=== PATIENT | female | born 1950 | race Caucasian/White ===

== ENCOUNTER 2017-04-29 12:41 | Emergency (ER) | payer MEDICARE, OTHER ==
[~2017-04-29] VITALS: Ht 162.6 cm; Wt 68.0 kg
[~2017-04-29 12:41] MED LIST: HYDR-3720 PO; HYOS0.1216 PO; MELO7.5T PO; OMEP40CA36 PO; ONDA8TAB9 PO
[2017-04-29] MEDS ORDERED: TETANUS,DIPTH,PERTUSS P/F (BOOSTRIX) 0.5 ML VIAL IM STA (13:40)
[2017-04-29] MEDS ORDERED: ACETAMINOPHEN 500 MG TAB (TYLENOL) PO STA (13:40)
--- NOTE | 2017-04-29 13:58 | ED Fall/Injury ---
General Chief Complaint: Trauma-Non Activation Stated Complaint: FALL/L ARM INJ Nursing Triage Note: AMBULATED TO ROOM 07 WITH COMPLAINTS OF LEFT WRIST AND HIP PAIN AFTER FALLING IN [employer]. Source: patient Exam Limitations: no limitations History of Present Illness Time seen by provider: 13:34 Initial Comments 67 yo female patient presents to the ED with c/o left wrist pain and hip pain after falling in her 's shop. Patient is not sure if she hit her head. Reports an abrasion to the left knee. Denies headache, n/v, or dizziness. Did have one episode of dizziness immediately after falling. Location Injury Occurred: at home in her 's shop Occurred: this morning Injuries/Pain Location: head, upper extremity, lower extremity Context: tripped Loss of Consciousness: no loss of consciousness Modifying Factors: Improves With Immobilization, Worse With Movement Allergies and Home Medications Allergies Coded Allergies: levofloxacin (Verified Adverse Reaction, mental status change, 10/17/13) niacin (Verified Adverse Reaction, flushing, 10/17/13) Home Medications Hydrocodone/Acetaminophen 1 Each Tablet, 1 EACH PO Q4H PRN for PAIN, #30 Ref 0 Prescribed by: JACE BYRD on 04/29/17 8434 Constitutional: see HPI, No dizziness ((did have 1 episode of dizziness immediately after falling).) Eyes: No Symptoms Reported Ears, Nose, Mouth, Throat: no symptoms reported Respiratory: No cough, No short of breath Cardiovascular: No chest pain, No syncope Gastrointestinal: no symptoms reported Genitourinary: no symptoms reported Musculoskeletal: No back pain, joint pain (left hip, left knee, and left wrist. ), No neck pain Skin: see HPI Psychiatric/Neurological: Denies Headache, Denies Numbness, Denies Paresthesia , Denies Seizure, Denies Tingling, Denies Weakness All Other Systems Reviewed Negative Unless Noted: Yes (Negative excepted noted.) Past Htdjtjo-Ckxqci-Ksqicd Hx Patient Social History Alcohol Use: Denies Use Recreational Drug Use: No Smoking Status: Never a Smoker Recent Foreign Travel: No Contact w/Someone Who Travel: No Recent Infectious Disease Expo: No Recent Hopitalizations: No Immunizations Up To Date Tetanus Booster (TDap): More than 5yrs Date of Pneumonia Vaccine: Sep 19, 2010 Date of Influenza Vaccine: Sep 18, 2013 Surgeries HX Surgeries: Yes (EAR DRUM REPLACEMENT, R AND L ROTATOR CUFF, HYST, ANMOL, RIGHT ANKLE) Respiratory Hx Respiratory Disorders: No Cardiovascular Hx Cardiac Disorders: Yes Cardiac Disorders: Hypertension Neurological Hx Neurological Disorders: No Reproductive System Hx Reproductive Disorders: No HIV/AIDS: No Genitourinary Genitourinary Disorders: UTI-Chronic Gastrointestinal Hx Gastrointestinal Disorders: Yes Gastrointestinal Disorders: Gastrointestinal Bleed, Ulcer Musculoskeletal Hx Musculoskeletal Disorders: Yes Musculoskeletal Disorders: Arthritis, Chronic Back Pain, Gout Endocrine Hx Endocrine Disorders: Yes ("BORDERLINE DIABETIC") Endocrine Disorders: Diabetes, Non-Insulin dep HEENT HX ENT Disorders: No Loss of Vision: Bilateral Cancer Hx Cancer: No Psychosocial Hx Psychiatric Problems: Yes Behavioral Health Disorders: Anxiety, Depression Integumentary HX Skin/Integumentary Disorder: No Blood Transfusions Hx Blood Disorders: No Adverse Reaction to a Blood Tr: No Reviewed Nursing Assessment Reviewed/Agree w Nursing PMH: Yes Family Medical History Significant Family History: No Pertinent Family Hx Physical Exam Vital Signs Vital Sign - Last 12Hours 04/29/17 13:10 Temp 98.0 Pulse 81 Resp 16 B/P (MAP) 195/91 Pulse Ox 97 O2 Delivery Room Air Capillary Refill : Less Than 3 Seconds General Appearance: WD/WN, no apparent distress HEENT: PERRL/EOMI, pharynx normal, other (normocephalic, atraumatic.) Neck: non-tender, full range of motion, supple, normal inspection Cardiovascular: normal peripheral pulses, regular rate, rhythm, no murmur Respiratory: lungs clear, normal breath sounds, no respiratory distress Back: normal inspection, no vertebral tenderness Extremities: no pedal edema, normal capillary refill, pelvis stable, other ( mild ecchymosis and abrasion of the left anterior knee. abrasion of the anterior lower black. left lateral elbow ttp with ecchymosis and swelling. mild swelling of the medial left wrist. no evidence of deformity noted. 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 abrasion of the anterior lower black. left lateral elbow ttp with ecchymosis and swelling. mild swelling of the medial left wrist. no evidence of deformity noted. ) Cortez Coma Score Best Eye Response: (4) Open Spontaneously Best Verbal Response: (5) Oriented Best Motor Response: (6) Obeys Commands Gilles Total: 15 Splinting and Joint Reduction : Location: left elbow Pre-Proc Neuro Vasc Exam: normal Post-Proc Neuro Vasc Exam: normal Lavell wrap: Yes (lavell wrap used to secure the orthoglass) Arm Sling: Large Hand-Made Type: orthoglass Splint Application: Long Arm (posterior long arm), Short Arm (stirrup) Progress/Results/Core Measures Results/Orders My Orders Orders - JACE BYRD Forearm, Left, 2 Views (04/29/17 13:40) Hand, Left, 3 Views (04/29/17 13:40) Pelvis (04/29/17 13:40) Ct Head Wo (04/29/17 13:40) Dipht,Pertuss(Acell),Tet Adult (Boostrix (04/29/17 13:40) Acetaminophen Tablet (Tylenol Tablet) (04/29/17 13:40) Elbow, Left, 3 Views (04/29/17 14:14) Vital Signs/I&O Vital Sign - Last 12Hours 04/29/17 04/29/17 13:10 15:49 Temp 98.0 98.0 Pulse 81 81 Resp 16 16 B/P (MAP) 195/91 Pulse Ox 97 97 O2 Delivery Room Air Blood Pressure Mean: 125 Diagnostic Imaging Diagonstic Imaging: CT Plain Films/CT/US/NM/MRI: head Comments Discussion: No intracranial hemorrhage, mass, midline shift, or hydrocephalus. The ventricles and sulci are normal size and configuration for age. The visualized orbits, paranasal sinuses, mastoid air cells, and calvarium are unremarkable. Impression: 1. Negative head CT. Dictated by: Dictated on workstation # [id number] Reviewed: Reviewed by Me (radiology report reviewed by me.) Diagonstic Imaging: Xray Plain Films/CT/US/NM/MRI: pelvis Comments Discussion: Single AP view of the pelvis was obtained, no comparison. No acute fracture or dislocation. Suspect old hamstring injuries, incidental. Mild degenerative changes are noted within the bilateral hips. Moderate degenerative changes are present within the visualized lumbar spine. Soft tissues are unremarkable. Impression: 1. Negative pelvis. Dictated by: Dictated on workstation # [id number] Reviewed: Reviewed by Me (radiology report reviewed by me.) Diagonstic Imaging: Xray Plain Films/CT/US/NM/MRI: other (forearm) Comments There is a slightly impacted fracture of the radial neck. There is only slight elevation of the posterior fat-pad of the elbow joint on the lateral view. No other fracture or acute bony abnormality is identified. However if further evaluation of the extent of the injury to the radial neck is desired, then a three-view elbow series would be recommended. The soft tissues are unremarkable. There is moderate degenerative disease of the radiocarpal joint. The elbow joint is fairly well-maintained. IMPRESSION: There is a slightly impacted fracture of the radial neck. There is no acute bony abnormality identified otherwise. Additional considerations as above. Dictated by: Dictated on workstation # [id number] Reviewed: Reviewed by Me (radiology report reviewed by me. ) Diagonstic Imaging: Xray Plain Films/CT/US/NM/MRI: hand Comments Discussion: Three views of the left hand were obtained, no comparison. Age related mild polyarticular degenerative disease is noted. No acute fracture or dislocation. Alignment is anatomic. Soft tissues are unremarkable. No radiopaque foreign body. Impression: 1. No acute osseous abnormality identified within the left hand. Dictated by: Dictated on workstation # [id number] Reviewed: Reviewed by Me (radiology report reviewed by me. ) Diagonstic Imaging: Xray Plain Films/CT/US/NM/MRI: elbow Comments FINDINGS: There is a fracture of the proximal radial neck. This is slightly impacted. The proximal ulna and distal humerus are intact. There is a joint effusion. IMPRESSION: Slightly impacted fracture of the neck of the proximal radius. Dictated by: Dictated on workstation # [id number] Reviewed: Reviewed by Me (radiology report reviewed by me. ) Departure Communication Progress Notes diagnostic findings discussed with the patient. splint and arm sling applied. plan for dsch to home. Impression Impression: Primary Impression: Fracture of radial neck, closed Qualified Codes: S52.135A - Nondisplaced fracture of neck of left radius, initial encounter for closed fracture Additional Impressions: Minor head injury without loss of consciousness Qualified Codes: S09.90XA - Unspecified injury of head, initial encounter Abrasion of lower extremity Qualified Codes: S80.812A - Abrasion, left lower leg, initial encounter Disposition: 01 HOME, SELF-CARE Condition: Improved Departure-Patient Inst. Decision time for Depature: 14:55 Referrals: JANEY OLIVAREZ MD (PCP) Primary Care Physician JOE OLMEDO MD Patient Instructions: Elbow Fracture (DC), Minor Head Injury (DC) Add. Discharge Instructions: All discharge instructions reviewed with patient and/or family. Voiced understanding. Medications as instructed. No ibuprofen or Aleve. No aspirin. Elevate the left arm on pillows. Ice pack for 20 minute intervals as needed for pain. Arm sling as instructed. Right arm activities only until released by Dr. Olmedo. Keep the splint clean and dry. Follow-up with Dr. Olmedo in the next 7 days as an outpatient for recheck, call first thing tomorrow morning for appointment time. Return to the emergency department for worsened pain, numbness, weakness, pain from the splint, discoloration, or any other concerns. Scripts Hydrocodone/Acetaminophen (Hydrocodon -Acetaminophen 5-325) 1 Each Tablet 1 EACH PO Q4H Y for PAIN, #30 TAB 0 Refills Prov: JACE BYRD 04/29/17 JACE BYRD Apr 29, 2017 13:58
--- NOTE | 2017-04-29 14:01 | Diagnostic Imaging Report ---
PROCEDURE: CT head without contrast. TECHNIQUE: Multiple contiguous axial images were obtained through the brain without the use of intravenous contrast. Indication: Head pain after fall. Comparison: None. Discussion: No intracranial hemorrhage, mass, midline shift, or hydrocephalus. The ventricles and sulci are normal size and configuration for age. The visualized orbits, paranasal sinuses, mastoid air cells, and calvarium are unremarkable. Impression: 1. Negative head CT. Dictated by: Dictated on workstation # [id number]
--- NOTE | 2017-04-29 14:01 | Diagnostic Imaging Report ---
Indication: Fall with left hip pain. Discussion: Single AP view of the pelvis was obtained, no comparison. No acute fracture or dislocation. Suspect old hamstring injuries, incidental. Mild degenerative changes are noted within the bilateral hips. Moderate degenerative changes are present within the visualized lumbar spine. Soft tissues are unremarkable. Impression: 1. Negative pelvis. Dictated by: Dictated on workstation # [id number]
--- NOTE | 2017-04-29 14:05 | Diagnostic Imaging Report ---
Indication: Left hand pain after fall. Discussion: Three views of the left hand were obtained, no comparison. Age related mild polyarticular degenerative disease is noted. No acute fracture or dislocation. Alignment is anatomic. Soft tissues are unremarkable. No radiopaque foreign body. Impression: 1. No acute osseous abnormality identified within the left hand. Dictated by: Dictated on workstation # [id number]
--- NOTE | 2017-04-29 14:12 | Diagnostic Imaging Report ---
Left forearm INDICATION: Fell arm pain AP and lateral views were obtained. There is a slightly impacted fracture of the radial neck. There is only slight elevation of the posterior fat-pad of the elbow joint on the lateral view. No other fracture or acute bony abnormality is identified. However if further evaluation of the extent of the injury to the radial neck is desired, then a three-view elbow series would be recommended. The soft tissues are unremarkable. There is moderate degenerative disease of the radiocarpal joint. The elbow joint is fairly well-maintained. IMPRESSION: There is a slightly impacted fracture of the radial neck. There is no acute bony abnormality identified otherwise. Additional considerations as above. Dictated by: Dictated on workstation # [id number]
[2017-04-29] MEDS ORDERED: HYDR-3812 PO (14:57)
--- NOTE | 2017-04-29 15:21 | Diagnostic Imaging Report ---
INDICATION: Fall. 3 views were obtained. FINDINGS: There is a fracture of the proximal radial neck. This is slightly impacted. The proximal ulna and distal humerus are intact. There is a joint effusion. IMPRESSION: Slightly impacted fracture of the neck of the proximal radius. Dictated by: Dictated on workstation # [id number]
[2017-04-29 15:49] VITALS: BP 195/91
== END 2017-04-29 15:49 | disposition home or self-care (01) ==
LOC: EDUNIT# 12:41 → ER 12:43
DX: S52.132A Displaced fracture of neck of left radius, initial encounter for closed fracture (principal); S09.90XA Unspecified injury of head, initial encounter; S80.812A Abrasion, left lower leg, initial encounter; E11.9 Type 2 diabetes mellitus without complications; I10 Essential (primary) hypertension; W18.30XA Fall on same level, unspecified, initial encounter; Y92.89 Other specified places as the place of occurrence of the external cause
CPT/HCPCS: 29105; 70450; 72170; 73080; 73090; 73130; 90715

== ENCOUNTER → 2019-08-29 | Outpatient (CLI) | payer MEDICARE, OTHER ==
[~2019-08-29] MED LIST changes: +ACHD5005 PO
--- NOTE | 2019-08-29 11:47 | Diagnostic Imaging Report ---
INDICATION: Follow-up kidney stones. TIME OF EXAM: 11:28 a.m. COMPARISON: No prior studies are available for comparison. FINDINGS: There are calcific densities overlying both renal shadows suggestive of renal calculi. No definite radiopaque calculi are seen within the distribution of the ureters. Bowel gas pattern is unremarkable. There are surgical clips in the gallbladder fossa. Multilevel lumbar degenerative disc disease is seen. IMPRESSION: Findings suggestive of bilateral renal calculi. No definite ureteral calculi are identified. Dictated by: Dictated on workstation # [id number]
== END ==
LOC: RAD FS 11:24
PROVIDERS: ATTEND Urology
DX: N20.0 Calculus of kidney (principal)
CPT/HCPCS: 74018

== ENCOUNTER 2020-08-28 16:55 | Emergency (ER) | payer MEDICARE, OTHER ==
[~2020-08-28] VITALS: Ht 162.5 cm; Wt 72.2 kg
[2020-08-28] MEDS ORDERED: LOSA100T57 PO (17:19)
[2020-08-28] MEDS ORDERED: FEXO-46 PO (17:19)
[2020-08-28] MEDS ORDERED: OMEP40CA27 PO (17:19)
[2020-08-28] MEDS ORDERED: HYDR12.56 PO (17:19)
[2020-08-28] MEDS ORDERED: INSU100I10 SC (17:19)
--- NOTE | 2020-08-28 17:38 | ED General ---
General Chief Complaint: Cardiac/General Problems Stated Complaint: SOB, HIGH BP Nursing Triage Note: Patient presents to ED reporting a 1-2 hr palpitation sennsation and took home BP and found it elevated still. Pt had notified her storm window installer mid-week of elevations and HCTZ ordered. Pt recently on Z-rafi ending . Recent COVID test negative. Nursing Sepsis Screen: No Definite Risk (RENAY NJ DO) History of Present Illness Date Seen by Provider: Aug 28, 2020 Time Seen by Provider: 17:33 Initial Comments Patient presenting to emergency department for evaluation of primary complaints of hypertension and palpitations. She said she has had some shortness of breath recently as well but she says most a she has episodes of her heart beating quickly for 5 minutes at a time and this occurred at approximately noon today and then it stopped on its own. It sounds as if she checks her blood pressure at home rather frequently as her storm window installer at [facility] [address] told her to check it and her blood pressure was 225/100 and she decided to come to the emergency department. She denies having any chest pain tightness or pressure to me rather she says she just feels the palpitations sensation at times and can feel short of breath at times as well. She says hydrochlorothiazide was recently added to her medication regiment at 12.5 mg and she also takes low certain but she does not know the dose of this. She has a history of hypertension diabetes and high cholesterol but does not smoke cigarettes. She has had no heart catheterization but she has had a stress test approximately 3-4 years ago. She said she is here and she is most concerned that she is going to have a heart attack. She is in no obvious distress with normal vital signs except for mild systolic hypertension at 195/71. (RENAY NJ DO) Allergies and Home Medications Allergies Coded Allergies: levofloxacin (Verified Adverse Reaction, mental status change, 10/17/13) niacin (Verified Adverse Reaction, flushing, 10/17/13) Home Medications Fexofenadine HCl 180 Mg Tablet, 180 MG PO DAILY, (Reported) Hydrochlorothiazide 12.5 Mg Tablet, 12.5 MG PO DAILY, (Reported) Insulin Glargine,Hum.rec.anlog 100 Unit/1 Ml Insuln.pen, 25 UNIT SC HS, (Reported) Losartan Potassium 100 Mg Tablet, 100 MG PO DAILY, (Reported) Omeprazole 40 Mg Capsule.dr, 40 MG PO DAILY, (Reported) Patient Home Medication List Home Medication List Reviewed: Yes (RENAY NJ DO) Review of Systems Review of Systems Constitutional: no symptoms reported EENTM: no symptoms reported Respiratory: short of breath Cardiovascular: palpitations Gastrointestinal: no symptoms reported Genitourinary: no symptoms reported Musculoskeletal: no symptoms reported Skin: no symptoms reported Psychiatric/Neurological: No Symptoms Reported (RENAY NJ DO) All Other Systems Reviewed Negative Unless Noted: Yes (RENAY NJ DO) Past Gfoxsft-Ryvyxl-Unqiue Hx Patient Social History Alcohol Use: Denies Use Recreational Drug Use: No Smoking Status: Never a Smoker Recent Foreign Travel: No Contact w/Someone Who Travel: No Recent Infectious Disease Expo: No Recent Hopitalizations: No Physical Abuse: No Sexual Abuse: No Mistreated: No Fear: No (RENAY NJ DO) Immunizations Up To Date Tetanus Booster (TDap): More than 5yrs Date of Pneumonia Vaccine: Sep 19, 2017 Date of Influenza Vaccine: Aug 19, 2019 (RENAY NJ DO) Seasonal Allergies Seasonal Allergies: No (RENAY NJ DO) Past Medical History Surgeries: Yes (EAR DRUM REPLACEMENT, R AND L ROTATOR CUFF, RIGHT ANKLE) Ear Surgery, Gallbladder, Orthopedic Respiratory: No Cardiac: Yes High Cholesterol, Hypertension Neurological: No Reproductive Disorders: No HIV/AIDS: No Genitourinary: No UTI-Chronic Gastrointestinal: Yes Gastrointestinal Bleed, Ulcer Musculoskeletal: Yes Arthritis, Chronic Back Pain, Gout Endocrine: Yes Diabetes, Non-Insulin dep HEENT: No Loss of Vision: Bilateral Cancer: No Did You Recieve Any Treatments: No Psychosocial: Yes Anxiety, Depression Integumentary: No Blood Disorders: No Adverse Reaction/Blood Tranf: No (RENAY NJ DO) Family Medical History No Pertinent Family Hx (RENAY NJ DO) Physical Exam Vital Signs Vital Signs - First Documented 08/28/20 17:00 Temp 37.0 Pulse 94 Resp 18 B/P (MAP) 214/65 (114) Pulse Ox 96 O2 Delivery Room Air (MONO SALINAS MD) Vital Signs Capillary Refill : Less Than 3 Seconds (RENAY NJ DO) Height, Weight, BMI Height: 5'4.00" Weight: 150lbs. oz. 68.735871py; 27.00 BMI Method:Stated General Appearance: No Apparent Distress, WD/WN HEENT: PERRL/EOMI Neck: Supple Respiratory: Lungs Clear, No Respiratory Distress Cardiovascular: Regular Rate, Rhythm Gastrointestinal: Non Tender, Soft Back: Normal Inspection Extremity: Normal Capillary Refill Neurologic/Psychiatric: Alert, Oriented x3 Skin: Warm/Dry ([facility]Y [facility]) Progress/Results/Core Measures Suspected Sepsis Recent Fever Within 48 Hours: No Infection Criteria Present: None New/Unexplained Altered Menta: No Sepsis Screen: No Definite Risk SIRS Temperature: Pulse: 94 Respiratory Rate: 18 Blood Pressure 214 /65 Mean: 114 ([facility]) Results/Orders Lab Results Laboratory Tests Test 08/28/20 17:51 08/28/20 17:59 Range/Units White Blood Count 12.4 H 4.3-11.0 10^3/uL Red Blood Count 4.35 4.35-5.85 10^6/uL Hemoglobin 13.6 11.5-16.0 G/DL Hematocrit 40 35-52 % Mean Corpuscular Volume 92 80-99 FL Mean Corpuscular Hemoglobin 31 25-34 PG Mean Corpuscular Hemoglobin Concent 34 32-36 G/DL Red Cell Distribution Width 13.1 10.0-14.5 % Platelet Count 340 130-400 10^3/uL Mean Platelet Volume 10.1 7.4-10.4 FL Immature Granulocyte % (Auto) 1 % Neutrophils (%) (Auto) 70 42-75 % Lymphocytes (%) (Auto) 21 12-44 % Monocytes (%) (Auto) 6 0-12 % Eosinophils (%) (Auto) 1 0-10 % Basophils (%) (Auto) 1 0-10 % Neutrophils # (Auto) 8.7 H 1.8-7.8 X 10^3 Lymphocytes # (Auto) 2.6 1.0-4.0 X 10^3 Monocytes # (Auto) 0.8 0.0-1.0 X 10^3 Eosinophils # (Auto) 0.1 0.0-0.3 10^3/uL Basophils # (Auto) 0.1 0.0-0.1 10^3/uL Immature Granulocyte # (Auto) 0.1 0.0-0.1 10^3/uL Prothrombin Time 12.8 12.2-14.7 SEC INR Comment 0.9 0.8-1.4 Activated Partial Thromboplast Time 24 24-35 SEC Sodium Level 138 135-145 MMOL/L Potassium Level 4.8 3.6-5.0 MMOL/L Chloride Level 101 98-107 MMOL/L Carbon Dioxide Level 23 21-32 MMOL/L Anion Gap 14 5-14 MMOL/L Blood Urea Nitrogen 34 H 7-18 MG/DL Creatinine 1.50 H 0.60-1.30 MG/DL Estimat Glomerular Filtration Rate 34 BUN/Creatinine Ratio 23 Glucose Level 305 H 70-105 MG/DL Calcium Level 9.0 8.5-10.1 MG/DL Corrected Calcium 8.9 8.5-10.1 MG/DL Magnesium Level 1.7 1.6-2.4 MG/DL Total Bilirubin 0.2 0.1-1.0 MG/DL Aspartate Amino Transf (AST/SGOT) 13 5-34 U/L Alanine Aminotransferase (ALT/SGPT) 16 0-55 U/L Alkaline Phosphatase 128 40-136 U/L Troponin I < 0.30 <0.30 NG/ML Pro-B-Type Natriuretic Peptide 220.5 H <75.0 PG/ML Total Protein 7.4 6.4-8.2 GM/DL Albumin 4.1 3.2-4.5 GM/DL Urine Color YELLOW Urine Clarity CLEAR Urine pH 6.0 5-9 Urine Specific [place] 1.020 1.016-1.022 Urine Protein 1+ H NEGATIVE Urine Glucose (UA) 3+ H NEGATIVE Urine Ketones NEGATIVE NEGATIVE Urine Nitrite NEGATIVE NEGATIVE Urine Bilirubin NEGATIVE NEGATIVE Urine Urobilinogen 0.2 < = 1.0 MG/DL Urine Leukocyte Esterase NEGATIVE NEGATIVE Urine RBC (Auto) TRACE H NEGATIVE Urine RBC 5-10 H /HPF Urine WBC 2-5 /HPF Urine Squamous Epithelial Cells 5-10 /HPF Urine Crystals NONE /LPF Urine Bacteria NEGATIVE /HPF Urine Casts NONE /LPF Urine Mucus NEGATIVE /LPF Urine Culture Indicated NO (MONO SALINAS MD) My Orders Orders - MONO SALINAS MD Clonidine Tablet (Catapres Tablet) (08/28/20 18:15) (MONO SALINAS MD) Medications Given in ED Current Medications Medications Dose Ordered Sig/Cheryl Route Start Time Stop Time Status Last Admin Dose Admin Clonidine HCl 0.1 mg ONCE ONCE PO 08/28/20 18:15 08/28/20 18:16 DC 08/28/20 18:11 0.1 MG (MONO SALINAS MD) Vital Signs/I&O 08/28/20 17:00 Temp 37.0 Pulse 94 Resp 18 B/P (MAP) 214/65 (114) Pulse Ox 96 O2 Delivery Room Air (MONO SALINAS MD) Vital Signs/I&O Capillary Refill : Less Than 3 Seconds (RENAY NJ DO) Blood Pressure Mean: 114 Progress Note : Progress Note A have a very low suspicion for heart attack as her EKG appears normal with no signs of ischemia. I will check labs continue to monitor and then reassess. Patient was extremely difficult IV access and that the nurses were able to get access on her she had very small caliber veins and I was able to get an ultr asound-guided ATV on my third attempt on the right inner arm. Given workup is still pending I will transfer care to Dr. Salinas at 1800 (RENAY NJ DO) Progress Note : Time: 18:46 Progress Note 1845: I assumed care from Dr. Nj at shift change at 1800. I agree with his history of present illness and examination as documented above. In brief, 70-year-old female with a history of hypertension, hyperlipidemia and insulin dependent diabetes who presents for evaluation of elevated blood pressures measured at home today as well as some transient palpitations earlier. A symptomatic here in the emergency department and feels well. Has not had any chest pain. Vital signs notable only for hypertension. Alert and oriented and in no acute distress. Labs, EKG and chest x-ray are without evidence of acute process; patient does have mildly elevated blood glucose but states she had a significant meal right before coming and she does have insulin at home to manage this. BUN/creatinine also slightly elevated but patient states this is chronic for her. Patient is counseled that there is no evidence of acute end organ damage related to elevated blood pressure and no evidence of dysrhythmia or other acute abnormality on cardiac telemetry and EKG. Recommend that she keeps a blood pressure log over the next couple of days and telephone her storm window installer, who manages her blood pressure, on Sunday to discuss best next steps in care. Should palpitations continue, recommend Holter monitoring. The patient understands that if she feels worse instead of better or develops other new symptoms of concern that she will need to return to the emergency department immediately for reevaluation. All questions are answered. (MONO SALINAS MD) Departure Impression Primary Impression: Palpitations Additional Impression: Hypertension Disposition: HOME, SELF-CARE Condition: Improved Departure-Patient Inst. Referrals: NO,LOCAL PHYSICIAN (PCP) Primary Care Physician Patient Instructions: Palpitations, High Blood Pressure in Adults Add. Discharge Instructions: Follow-up with your storm window installer on Sunday as we discussed for a reevaluation of your symptoms and a discussion of next steps in care. In the meantime, keep a blood pressure log as we discussed. Continue to take her home blood pressure medicines and remember to discuss next best steps in blood pressure management with your storm window installer at your next appointment. Return to the emergency department right away with worsening symptoms of any kind or with any other new symptoms of concern. RENAY NJ DO Aug 28, 2020 17:38 MONO SALINAS MD Aug 28, 2020 18:49
[2020-08-28 18:07] LABS: HEMATOCRIT 40 % (35-52); HEMOGLOBIN 13.6 G/DL (11.5-16.0); MEAN CORPUSCULAR HEMOGLOBIN 31 PG (25-34); MEAN CORPUSCULAR VOLUME 92 FL (80-99); WHITE BLOOD COUNT 12.4 10^3/uL (4.3-11.0)
[2020-08-28 18:08] LABS: BASOPHILS # (AUTO) 0.1 10^3/uL (0.0-0.1); BASOPHILS % (AUTO) 1 % (0-10); EOSINOPHILS # (AUTO) 0.1 10^3/uL (0.0-0.3); EOSINOPHILS % (AUTO) 1 % (0-10); LYMPHOCYTES # (AUTO) 2.6 X 10^3 (1.0-4.0); LYMPHOCYTES % (AUTO) 21 % (12-44); MEAN CORPUSCULAR HGB CONC 34 G/DL (32-36); MEAN PLATELET VOLUME 10.1 FL (7.4-10.4); MONOCYTES # (AUTO) 0.8 X 10^3 (0.0-1.0); MONOCYTES % (AUTO) 6 % (0-12); NEUTROPHILS # (AUTO) 8.7 X 10^3 (1.8-7.8); NEUTROPHILS % (AUTO) 70 % (42-75); PLATELET COUNT 340 10^3/uL (130-400)
[2020-08-28 18:09] LABS: CLARITY,URINE CLEAR; COLOR,URINE YELLOW
--- NOTE | 2020-08-28 18:10 | Diagnostic Imaging Report ---
INDICATION: Hypertension. COMPARISON: None. EXAMINATION: Single view of the chest was obtained. FINDINGS: Slight cardiac enlargement. Lungs are clear. There is no pneumothorax but osseous structures are age-appropriate. IMPRESSION: Slight cardiac enlargement without pulmonary edema or acute infiltrate. Dictated by: Dictated on workstation # [id number]
[2020-08-28 18:13] LABS: BILIRUBIN,URINE NEGATIVE (NEGATIVE); GLUCOSE, URINE (UA) 3+ (NEGATIVE); KETONES,URINE NEGATIVE (NEGATIVE); LEUKOCYTE ESTERASE ,URINE NEGATIVE (NEGATIVE); NITRITE,URINE NEGATIVE (NEGATIVE); PROTEIN,URINE 1+ (NEGATIVE)
[2020-08-28 18:14] LABS: BACTERIA,URINE NEGATIVE /HPF
[2020-08-28 18:15] LABS: INR 0.9 (0.8-1.4); PROTHROMBIN TIME PATIENT 12.8 SEC (12.2-14.7)
[2020-08-28] MEDS ORDERED: cloNIDine 0.1 MG (CATAPRES) TAB PO ONE (18:15)
[2020-08-28 18:32] LABS: ALKALINE PHOSPHATASE 128 U/L (40-136); BILIRUBIN,TOTAL 0.2 MG/DL (0.1-1.0); BUN/CREATININE RATIO 23; CARBON DIOXIDE 23 MMOL/L (21-32); CHLORIDE 101 MMOL/L (98-107); GFR ESTIMATED 34; GLUCOSE 305 MG/DL (70-105); MAGNESIUM 1.7 MG/DL (1.6-2.4); POTASSIUM 4.8 MMOL/L (3.6-5.0); SODIUM 138 MMOL/L (135-145)
[2020-08-28 18:33] LABS: ALANINE AMINOTRANSFERASE 16 U/L (0-55); ALBUMIN 4.1 GM/DL (3.2-4.5); TOTAL PROTEIN 7.4 GM/DL (6.4-8.2)
[2020-08-28 18:55] VITALS: BP 180/66
== END 2020-08-28 18:55 | disposition home or self-care (01) ==
LOC: EDUNIT# 16:55 → ER FS 16:57
DX: R00.2 Palpitations (principal); I10 Essential (primary) hypertension; K21.9 Gastro-esophageal reflux disease without esophagitis; E11.9 Type 2 diabetes mellitus without complications; Z79.4 Long term (current) use of insulin; Z88.1 Allergy status to other antibiotic agents; Z88.8 Allergy status to other drugs, medicaments and biological substances
CPT/HCPCS: 36415; 71045; 80053; 81000; 83735; 83880; 84484; 85025; 85610; 85730; 93005

== ENCOUNTER → 2021-08-04 | Outpatient (CLI) | payer MEDICARE, OTHER ==
[~2021-08-04] MED LIST changes: +FEXO-46 PO; +HYDR12.56 PO; +INSU100I10 SC; +LOSA100T57 PO; +OMEP40CA6 PO
[2021-08-04 19:12] LABS: BILIRUBIN,URINE NEGATIVE (NEGATIVE); CLARITY,URINE CLEAR; COLOR,URINE YELLOW; GLUCOSE, URINE (UA) 1+ (NEGATIVE); KETONES,URINE NEGATIVE (NEGATIVE); LEUKOCYTE ESTERASE ,URINE NEGATIVE (NEGATIVE); NITRITE,URINE NEGATIVE (NEGATIVE); PROTEIN,URINE 1+ (NEGATIVE)
[2021-08-04 19:18] LABS: EOSINOPHILS % (AUTO) 3 % (0-10); HEMATOCRIT 42 % (35-52); HEMOGLOBIN 13.6 g/dL (11.5-16.0); LYMPHOCYTES % (AUTO) 27 % (12-44); MEAN CORPUSCULAR HEMOGLOBIN 30 pg (25-34); MEAN CORPUSCULAR HGB CONC 33 g/dL (32-36); MEAN CORPUSCULAR VOLUME 94 fL (80-99); MEAN PLATELET VOLUME 10.3 fL (9.0-12.2); MONOCYTES % (AUTO) 8 % (0-12); NEUTROPHILS % (AUTO) 61 % (42-75); PLATELET COUNT 301 10^3/uL (130-400); WHITE BLOOD COUNT 9.2 10^3/uL (4.3-11.0)
[2021-08-04 19:19] LABS: BASOPHILS # (AUTO) 0.1 10^3/uL (0.0-0.1); BASOPHILS % (AUTO) 1 % (0-10); EOSINOPHILS # (AUTO) 0.3 10^3/uL (0.0-0.3); LYMPHOCYTES # (AUTO) 2.4 X 10^3 (1.0-4.0); MONOCYTES # (AUTO) 0.7 X 10^3 (0.0-1.0); NEUTROPHILS # (AUTO) 5.6 X 10^3 (1.8-7.8)
[2021-08-04 19:20] LABS: BACTERIA,URINE NEGATIVE /HPF
[2021-08-04 20:59] LABS: ALBUMIN 4.1 GM/DL (3.2-4.5); CALCIUM 8.9 MG/DL (8.5-10.1); CREATININE SERUM 1.16 MG/DL (0.60-1.30); POTASSIUM 4.2 MMOL/L (3.6-5.0)
[2021-08-05 15:31] LABS: PHOSPHORUS 2.5 MG/DL (2.3-4.7)
== END ==
LOC: LAB FS 16:29
DX: E67.3 Hypervitaminosis D (principal)
CPT/HCPCS: 36415; 80069; 81000; 82306; 82570; 83970; 84156; 85025

== ENCOUNTER → 2022-04-27 | Outpatient (CLI) | payer MEDICARE, OTHER ==
[~2022-04-27] MED LIST changes: -FEXO-46 PO; +NF-ALLE180 PO
== END ==
LOC: LAB FS 11:39
PROVIDERS: ATTEND Registered Nurse Emergency
DX: I10 Essential (primary) hypertension (principal); K59.09 Other constipation; R60.0 Localized edema
CPT/HCPCS: 36415; 85379

== ENCOUNTER 2022-05-07 01:54 | Emergency (ER) | payer MEDICARE, OTHER ==
[~2022-05-07] VITALS: Ht 165.1 cm; Wt 78.4 kg
[2022-05-07] MEDS ORDERED: ONDANSETRON 4 MG/2 ML (SDV) Z0FRAN IVP ONE ×2 (02:15→06:15)
[2022-05-07] MEDS ORDERED: NS IV 500 ML 500 ML IV ONE (02:15)
--- NOTE | 2022-05-07 02:17 | ED Abdominal Pain ---
General Stated Complaint: CONSTIPATION,ABD DISTENDED Source of Information: Patient Exam Limitations: Physical Impairments (Hard of hearing) History of Present Illness Date Seen by Provider: May 07, 2022 Time Seen by Provider: 02:00 Initial Comments Patient to the ER by private conveyance with her significant other chief complaint of 6 weeks of constipation. She has been using Ex-Lax, Dulcolax, MiraLAX, stool softeners for the past several days. She went to the ER at [place] last weekend, 7 days ago. They took x-rays of her abdomen and told her she was constipated and to take laxatives. She has not been able to pass any stools and she feels distended and miserable. She had a colonoscopy in September 2021 in [place] and was told she had some polyps but they were all benign. Most of her discomfort is in her left lower quadrant abdomen. She has had no abdom inal surgeries. No diarrhea, fever. She does feel nauseated but has not vomited. Allergies and Home Medications Allergies Coded Allergies: levofloxacin (Verified Adverse Reaction, Unknown, mental status change, 05/07/22) niacin (Verified Adverse Reaction, Unknown, flushing, 05/07/22) Patient Home Medication List Home Medication List Reviewed: Yes Fexofenadine HCl (Fexofenadine HCl) 180 Mg Tablet, 180 MG PO DAILY, (Reported) Entered as Reported by: JAENY ZAVALA on 08/28/201718 Hydrochlorothiazide (Hydrochlorothiazide) 12.5 Mg Tablet, 12.5 MG PO DAILY, (Reported) Entered as Reported by: JANEY ZAVALA on 08/28/201718 Insulin Glargine,Hum.rec.anlog (Lantus Solostar) 100 Unit/1 Ml Insuln.pen, 25 UNIT SC HS, (Reported) Entered as Reported by: JANEY ZAVALA on 08/28/201718 Losartan Potassium (Losartan Potassium) 100 Mg Tablet, 100 MG PO DAILY, (Reported) Entered as Reported by: JANEY ZAVALA on 08/28/201718 Omeprazole (Omeprazole) 40 Mg Capsule.dr, 40 MG PO DAILY, (Reported) Entered as Reported by: JANEY ZAVALA on 08/28/201718 Review of Systems Review of Systems Constitutional: No chills, No diaphoresis EENTM: No Blurred Vision, No Double Vision Respiratory: Denies Cough, Denies Shortness of Air Cardiovascular: Denies Chest Pain, Denies Lightheadedness Gastrointestinal: See HPI, Abdomen Distended, Abdominal Pain, Constipated; Denies Diarrhea; Nausea; Denies Poor Fluid Intake, Denies Vomiting Genitourinary: Denies Burning, Denies Discharge Musculoskeletal: No back pain, No joint pain All Other Systems Reviewed Negative Unless Noted: Yes Past Nhowtoh-Lepwxl-Hogrps Hx Patient Social History Tobacco Use?: No Use of E-Cig and/or Vaping dev: No Substance use?: No Immunizations Up To Date Tetanus Booster (TDap): More than 5yrs Seasonal Allergies Seasonal Allergies: No Past Medical History Surgeries: Yes (EAR DRUM REPLACEMENT, R AND L ROTATOR CUFF, RIGHT ANKLE) Ear Surgery, Gallbladder, Orthopedic Respiratory: No Cardiac: Yes High Cholesterol, Hypertension Neurological: No Reproductive Disorders: No HIV/AIDS: No Genitourinary: No UTI-Chronic Gastrointestinal: Yes Gastrointestinal Bleed, Ulcer Musculoskeletal: Yes Arthritis, Chronic Back Pain, Gout Endocrine: Yes Diabetes, Non-Insulin dep HEENT: No Loss of Vision: Bilateral Cancer: No Did You Recieve Any Treatments: No Psychosocial: Yes Anxiety, Depression Integumentary: No Blood Disorders: No Adverse Reaction/Blood Tranf: No Family Medical History No Pertinent Family Hx Physical Exam Vital Signs Vital Signs - First Documented 05/07/22 02:27 Temp 36.4 Pulse 113 Resp 20 B/P (MAP) 175/85 (115) Pulse Ox 97 O2 Delivery Room Air Capillary Refill : Height/Weight/BMI Height: 5'4.00" Weight: 150lbs. oz. 68.512025ud; 27.00 BMI Method:Stated General Appearance: WD/WN, mild distress HEENT: normal ENT inspection, pharynx normal Neck: full range of motion, supple, normal inspection Respiratory: no respiratory distress, no accessory muscle use Cardiovascular: normal peripheral pulses, regular rate, rhythm Peripheral Pulses: 2+ Radial Pulses (R), 2+ Radial Pulses (L) Gastrointestinal: abnormal bowel sounds (Active bowel sounds, near constant), distended (Distended but not tympanic), tenderness (Mild tenderness over left lower quadrant abdomen but all over she complains of pain.); No hepatomegaly, No spleenomegaly Extremities: non-tender, normal inspection, normal capillary refill Neurologic/Psychiatric: alert, normal mood/affect, oriented x 3 Skin: normal color, warm/dry Progress/Results/Core Measures Results/Orders Lab Results Laboratory Tests Test 05/07/22 02:30 05/07/22 02:50 Range/Units White Blood Count 9.9 4.3-11.0 10^3/uL Red Blood Count 3.96 3.80-5.11 10^6/uL Hemoglobin 12.3 11.5-16.0 g/dL Hematocrit 37 35-52 % Mean Corpuscular Volume 93 80-99 fL Mean Corpuscular Hemoglobin 31 25-34 pg Mean Corpuscular Hemoglobin Concent 34 32-36 g/dL Red Cell Distribution Width 12.8 10.0-14.5 % Platelet Count 303 130-400 10^3/uL Mean Platelet Volume 9.7 9.0-12.2 fL Immature Granulocyte % (Auto) 1 % Neutrophils (%) (Auto) 60 42-75 % Lymphocytes (%) (Auto) 28 12-44 % Monocytes (%) (Auto) 8 0-12 % Eosinophils (%) (Auto) 2 0-10 % Basophils (%) (Auto) 1 0-10 % Neutrophils # (Auto) 5.9 1.8-7.8 10^3/uL Lymphocytes # (Auto) 2.8 1.0-4.0 10^3/uL Monocytes # (Auto) 0.8 0.0-1.0 10^3/uL Eosinophils # (Auto) 0.2 0.0-0.3 10^3/uL Basophils # (Auto) 0.1 0.0-0.1 10^3/uL Immature Granulocyte # (Auto) 0.1 0.0-0.1 10^3/uL Sodium Level 132 L 135-145 MMOL/L Potassium Level 4.4 3.6-5.0 MMOL/L Chloride Level 99 98-107 MMOL/L Carbon Dioxide Level 19 L 21-32 MMOL/L Anion Gap 14 5-14 MMOL/L Blood Urea Nitrogen 16 7-18 MG/DL Creatinine 1.43 H 0.60-1.30 MG/DL Estimat Glomerular Filtration Rate 38 BUN/Creatinine Ratio 11 Glucose Level 233 H 70-105 MG/DL Calcium Level 9.1 8.5-10.1 MG/DL Corrected Calcium 9.2 8.5-10.1 MG/DL Total Bilirubin 0.3 0.1-1.0 MG/DL Aspartate Amino Transf (AST/SGOT) 22 5-34 U/L Alanine Aminotransferase (ALT/SGPT) 30 0-55 U/L Alkaline Phosphatase 107 40-136 U/L C-Reactive Protein High Sensitivity 1.23 H 0.00-0.50 MG/DL Total Protein 7.1 6.4-8.2 GM/DL Albumin 3.9 3.2-4.5 GM/DL Urine Color YELLOW Urine Clarity CLEAR Urine pH 6.0 5-9 Urine Specific [place] 1.020 1.016-1.022 Urine Protein 1+ H NEGATIVE Urine Glucose (UA) TRACE H NEGATIVE Urine Ketones NEGATIVE NEGATIVE Urine Nitrite NEGATIVE NEGATIVE Urine Bilirubin NEGATIVE NEGATIVE Urine Urobilinogen 0.2 < = 1.0 MG/DL Urine Leukocyte Esterase NEGATIVE NEGATIVE Urine RBC (Auto) TRACE-I H NEGATIVE Urine RBC 0-2 /HPF Urine WBC RARE /HPF Urine Squamous Epithelial Cells RARE /HPF Urine Crystals NONE /LPF Urine Bacteria NEGATIVE /HPF Urine Casts NONE /LPF Urine Mucus NEGATIVE /LPF Urine Culture Indicated NO My Orders Orders - TOYA SALAZAR Ct Abdomen/Pelvis Wo (05/07/22 02:10) Ondansetron Injection (Zofran Injectio (05/07/22 02:15) Ed Iv/Invasive Line Start (05/07/22 02:10) Ns Iv 500 Ml (Sodium Chloride 0.9%) (05/07/22 02:15) Cbc With Automated Diff (05/07/22 02:10) Comprehensive Metabolic Panel (05/07/22 02:10) Hs C Reactive Protein (05/07/22 02:10) Ua Culture If Indicated (05/07/22 02:18) Diatrizoate Meglum/Sodium 37% (Gastrogra (05/07/22 03:00) Medications Given in ED Current Medications Medications Dose Ordered Sig/Cheryl Route Start Time Stop Time Status Last Admin Dose Admin Diatrizoate Meglum/ Diatrizoate Sod 120 ml ONCE ONCE PO 05/07/22 03:00 05/07/22 03:01 DC 05/07/22 02:52 30 ML Ondansetron HCl 8 mg ONCE ONCE IVP 05/07/22 02:15 05/07/22 02:16 DC 05/07/22 02:45 8 MG Sodium Chloride 500 ml @ 0 mls/hr Q0M ONCE IV 05/07/22 02:15 05/07/22 02:16 DC 05/07/22 02:45 999 MLS/HR Vital Signs/I&O 05/07/22 02:27 Temp 36.4 Pulse 113 Resp 20 B/P (MAP) 175/85 (115) Pulse Ox 97 O2 Delivery Room Air Progress Progress Note : Time: 02:16 Progress Note We will give her some nausea medicine oral contrast and obtain a CT without IV contrast of her bowels to rule out obstruction. A little bit of IV fluids to help with hydration status. We will check some basic labs. Urinalysis. Diagnostic Imaging Diagonstic Imaging: CT (With oral contrast only) Plain Films/CT/US/NM/MRI: abdomen, pelvis Comments [facility] [place], [place] NAME: KIKA HOLLAND [facility] REC#: [id number] PT STATUS: REG ER : 1950 PHYSICIAN: TOYA SALAZAR MD ADMIT DATE: 05/07/22/ER Signed Date of Exam:05/07/22 CT ABDOMEN/PELVIS WO PROCEDURE: CT abdomen and pelvis without contrast. TECHNIQUE: Multiple contiguous axial images were obtained through the abdomen and pelvis without the use of intravenous contrast. Auto Exposure Controls were utilized during the CT exam to meet ALARA standards for radiation dose reduction. INDICATION: Left lower quadrant pain Lung bases are clear. Liver appears normal. The gallbladder surgically absent. Pancreas is normal. Spleen is not enlarged. GE junction is unremarkable. Stomach and small bowel appear normal. Right adrenal is normal. There is a small calcification in the left adrenal. Left kidney is severely atrophied. There are some tiny calyceal calcifications in both kidneys. Ureters are clear. There is no hydronephrosis. Urinary bladder is normal. Uterus is surgically absent. There are no pathologic masses or fluid collections seen in the adnexa. The appendix is not seen. Colon appears normal. There is no peritoneal free air or free fluid. IMPRESSION: Bilateral nephrolithiasis. Severe atrophy of left kidney. There is aortic atherosclerosis but no aneurysm or dissection. The gallbladder, uterus and appendix appear to be surgically absent. Dictated by: Dictated on workstation # [id number] Dict: 05/07/2229 Trans: 05/07/22531 [facility] [id number] Interpreted by: SRINATH LYONS MD Electronically signed by: SRINATH LYONS MD 05/07/22531 Reviewed: Reviewed [place] Study, Reviewed by Me Departure Impression Primary Impression: Cathartic colon Disposition: HOME, SELF-CARE Condition: Stable Departure-Patient Inst. Decision time for Depature: 05:38 Referrals: LUPIS GOODEN APRN (PCP) Primary Care Physician [facility] (Family) Primary Care Physician Patient Instructions: Constipation, Adult (DC) Add. Discharge Instructions: While you probably were constipated earlier in the week when you were seen at [facility] you are now no longer constipated. Your colon is quite irritated from the stimulant laxatives you have taken which is causing your discomfort. This will improve as the medications you take wear off today. Stick to liquid diet until your stomach calms down. Ondansetron 1 tablet every 6 hours as needed for nausea or vomiting. Scripts Ondansetron (Ondansetron Odt) 4 Mg Tab.rapdis 4 MG PO Q6H PRN for NAUSEA/VOMITING, #8 TAB 0 Refills Prov: TOYA SALAZAR 05/07/22 TOYA SALAZAR May 07, 2022 02:17
[2022-05-07 02:36] LABS: BASOPHILS # (AUTO) 0.1 10^3/uL (0.0-0.1); BASOPHILS % (AUTO) 1 % (0-10); EOSINOPHILS # (AUTO) 0.2 10^3/uL (0.0-0.3); EOSINOPHILS % (AUTO) 2 % (0-10); HEMATOCRIT 37 % (35-52); HEMOGLOBIN 12.3 g/dL (11.5-16.0); LYMPHOCYTES # (AUTO) 2.8 10^3/uL (1.0-4.0); LYMPHOCYTES % (AUTO) 28 % (12-44); MEAN CORPUSCULAR HEMOGLOBIN 31 pg (25-34); MEAN CORPUSCULAR HGB CONC 34 g/dL (32-36); MEAN CORPUSCULAR VOLUME 93 fL (80-99); MEAN PLATELET VOLUME 9.7 fL (9.0-12.2); MONOCYTES # (AUTO) 0.8 10^3/uL (0.0-1.0); MONOCYTES % (AUTO) 8 % (0-12); NEUTROPHILS # (AUTO) 5.9 10^3/uL (1.8-7.8); NEUTROPHILS % (AUTO) 60 % (42-75); PLATELET COUNT 303 10^3/uL (130-400); WHITE BLOOD COUNT 9.9 10^3/uL (4.3-11.0)
[2022-05-07 02:44] LABS: ALBUMIN 3.9 GM/DL (3.2-4.5)
[2022-05-07 02:45] LABS: POTASSIUM 4.4 MMOL/L (3.6-5.0)
[2022-05-07 02:46] LABS: CALCIUM 9.1 MG/DL (8.5-10.1)
[2022-05-07 02:47] LABS: TOTAL PROTEIN 7.1 GM/DL (6.4-8.2)
[2022-05-07 02:49] LABS: BILIRUBIN,TOTAL 0.3 MG/DL (0.1-1.0)
[2022-05-07 02:51] LABS: CREATININE SERUM 1.43 MG/DL (0.60-1.30)
[2022-05-07 02:55] LABS: BILIRUBIN,URINE NEGATIVE (NEGATIVE); CLARITY,URINE CLEAR; COLOR,URINE YELLOW; GLUCOSE, URINE (UA) TRACE (NEGATIVE); KETONES,URINE NEGATIVE (NEGATIVE); LEUKOCYTE ESTERASE ,URINE NEGATIVE (NEGATIVE); NITRITE,URINE NEGATIVE (NEGATIVE); PROTEIN,URINE 1+ (NEGATIVE)
[2022-05-07] MEDS ORDERED: DIATRIZOATE MEGLUM/SODIUM 37% 120 ML (GASTROGRAFIN) PO ONE (03:00)
[2022-05-07 03:06] LABS: BACTERIA,URINE NEGATIVE /HPF; RBC,URINE 0-2 /HPF; SQUAMOUS EPITHELIAL CELL,UR RARE /HPF; WBC,URINE RARE /HPF
--- NOTE | 2022-05-07 05:33 | Diagnostic Imaging Report ---
PROCEDURE: CT abdomen and pelvis without contrast. TECHNIQUE: Multiple contiguous axial images were obtained through the abdomen and pelvis without the use of intravenous contrast. Auto Exposure Controls were utilized during the CT exam to meet ALARA standards for radiation dose reduction. INDICATION: Left lower quadrant pain Lung bases are clear. Liver appears normal. The gallbladder surgically absent. Pancreas is normal. Spleen is not enlarged. GE junction is unremarkable. Stomach and small bowel appear normal. Right adrenal is normal. There is a small calcification in the left adrenal. Left kidney is severely atrophied. There are some tiny calyceal calcifications in both kidneys. Ureters are clear. There is no hydronephrosis. Urinary bladder is normal. Uterus is surgically absent. There are no pathologic masses or fluid collections seen in the adnexa. The appendix is not seen. Colon appears normal. There is no peritoneal free air or free fluid. IMPRESSION: Bilateral nephrolithiasis. Severe atrophy of left kidney. There is aortic atherosclerosis but no aneurysm or dissection. The gallbladder, uterus and appendix appear to be surgically absent. Dictated by: Dictated on workstation # [id number]
[2022-05-07 05:44] VITALS: BP 155/73
[2022-05-07] MEDS ORDERED: ONDA4TAB11 PO (06:00)
[2022-05-08] MEDS ORDERED: PANT40TA2 PO (23:23)
[2022-05-08] MEDS ORDERED: ONDA8TAB13 PO (23:23)
[2022-05-08] MEDS ORDERED: HYOS0.1283 SL (23:23)
== END 2022-05-07 06:28 | disposition home or self-care (01) ==
LOC: EDUNIT# 01:54 → ER 01:57
DX: K59.9 Functional intestinal disorder, unspecified (principal); Z90.49 Acquired absence of other specified parts of digestive tract
CPT/HCPCS: 36415; 74176; 80053; 81000; 85025; 86141

== ENCOUNTER 2022-05-08 20:42 | Emergency (ER) | payer MEDICARE, OTHER ==
[~2022-05-08] VITALS: Ht 165.1 cm; Wt 78.4 kg
[~2022-05-08 20:42] MED LIST changes: +ONDA4TAB11 PO
[2022-05-08] MEDS ORDERED: ONDANSETRON 4 MG/2 ML (SDV) Z0FRAN IVP ONE (21:15)
[2022-05-08] MEDS ORDERED: LACTATED RINGERS 1,000 ML IV ONE (21:15)
--- NOTE | 2022-05-08 21:16 | ED GI ---
General Stated Complaint: CONSTIPATED Source of Information: Patient History of Present Illness Date Seen by Provider: May 08, 2022 Time Seen by Provider: 21:03 Initial Comments PT ARRIVES VIA POV FROM HOME IN [place] PT STATES SHE HAS BEEN SICK FOR OVER A WEEK WITH NAUSEA AND CONSTIPATION WAS SEEN AT [facility] ER LAST Sunday04/29/22 AND WAS DX WITH CONSTIPATION WAS SEEN HERE 05/07/22 FOR SAME, LAB AND CT ESSENTIALLY NORMAL. NO EVIDENCE OF CONSTIPATION AT THAT TIME. GIVEN RX FOR ZOFRAN STATES SHE CONTINUES TO FEEL NAUSEATED, HAS NOT VOMITED AT ANY TIME--PT HAS NOT TAKE ANY ZOFRAN DENIES ABDOMINAL PAIN AT ANY TIME STATES SHE HAD A BM THIS AFTERNOON AFTER USING A SUPPOSITORY C/O LEFT FLANK PAIN NO FEVER NO URINARY SYMPTOMS PT STATES SHE HAS NOT BEEN EATING OR DRINKING ANYTHING DUE TO NAUSEA, STATES "I KNOW I'M DEHYDRATED" HAS NOT ATTEMPTED TO CONTACT HER PCP AT ANY TIME FOR THIS PROBLEM SYMPTOMS NO DIFFERENT TONIGHT IN ANY WAY PCP: JASON GOODEN AT DR. TEJEDA'S OFFICE IN [place] Allergies and Home Medications Allergies Coded Allergies: levofloxacin (Verified Adverse Reaction, Unknown, mental status change, 05/07/22) niacin (Verified Adverse Reaction, Unknown, flushing, 05/07/22) Patient Home Medication List Home Medication List Reviewed: Yes Fexofenadine HCl (Fexofenadine HCl) 180 Mg Tablet, 180 MG PO DAILY, (Reported) Entered as Reported by: JANEY ZAVALA on 08/28/201718 Hydrochlorothiazide (Hydrochlorothiazide) 12.5 Mg Tablet, 12.5 MG PO DAILY, (Reported) Entered as Reported by: JANEY ZAVALA on 08/28/201718 Hyoscyamine Sulfate (Levsin-Sl) 0.125 Mg Tab.subl, 0.25 MG SL Q4H Prescribed by: MARJ DAMON on 05/08/222322 Insulin Glargine,Hum.rec.anlog (Lantus Solostar) 100 Unit/1 Ml Insuln.pen, 25 UNIT SC HS, (Reported) Entered as Reported by: JANEY ZAVALA on 08/28/201718 Losartan Potassium (Losartan Potassium) 100 Mg Tablet, 100 MG PO DAILY, (Reported) Entered as Reported by: JANEY ZAVALA on 08/28/201718 Omeprazole (Omeprazole) 40 Mg Capsule.dr, 40 MG PO DAILY, (Reported) Entered as Reported by: JANEY ZAVALA on 08/28/201718 Ondansetron (Ondansetron Odt) 4 Mg Tab.rapdis, 4 MG PO Q6H PRN for NAUSEA/VOMITING Prescribed by: TOYA SALAZAR on 05/07/22 0600 Ondansetron (Ondansetron Odt) 8 Mg Tab.rapdis, 8 MG PO Q6H Prescribed by: MARJ DAMON on 05/08/22 232 Pantoprazole Sodium (Protonix) 40 Mg Tablet.dr, 40 MG PO DAILY Prescribed by: MARJ DAMON on 05/08/222322 Review of Systems Review of Systems Constitutional: no symptoms reported Respiratory: No Symptoms Reported Cardiovascular: No Symptoms Reported Gastrointestinal: See HPI, Constipated; Denies Diarrhea; Nausea, Poor Appetite, Poor Fluid Intake; Denies Vomiting Genitourinary: See HPI, Flank Pain Musculoskeletal: see HPI, back pain Skin: no symptoms reported Psychiatric/Neurological: No Symptoms Reported Endocrine: No Symptoms Reported Hematologic/Lymphatic: No Symptoms Reported Past Wgtigmm-Hzpkdv-Cjcbna Hx Patient Social History Tobacco Use?: No Substance use?: No Alcohol Use?: No Immunizations Up To Date Tetanus Booster (TDap): More than 5yrs Seasonal Allergies Seasonal Allergies: No Past Medical History Surgeries: Yes (EAR DRUM REPLACEMENT, R AND L ROTATOR CUFF, RIGHT ANKLE) Ear Surgery, Gallbladder, Orthopedic Respiratory: No Cardiac: Yes High Cholesterol, Hypertension Neurological: No Reproductive Disorders: No HIV/AIDS: No Genitourinary: Yes Kidney Stones, UTI-Chronic Gastrointestinal: Yes Gastrointestinal Bleed, Ulcer Musculoskeletal: Yes Arthritis, Chronic Back Pain, Gout Endocrine: Yes Diabetes, Non-Insulin dep HEENT: No Loss of Vision: Bilateral Cancer: No Did You Recieve Any Treatments: No Psychosocial: Yes Anxiety, Depression Integumentary: No Blood Disorders: No Adverse Reaction/Blood Tranf: No Family Medical History No Pertinent Family Hx Physical Exam Vital Signs Vital Signs - First Documented 05/08/22 20:55 Temp 37.9 Pulse 105 Resp 16 B/P (MAP) 190/77 (114) Pulse Ox 94 O2 Delivery Room Air Capillary Refill : Height/Weight/BMI Height: 5'4.00" Weight: 150lbs. oz. [id number]; 28.00 BMI Method:Stated General Appearance: WD/WN, no apparent distress, other (DOES NOT APPEAR ILL OR TO BE IN ANY DISCOMFORT OR DISTRESS. TALKS AT LENGTH) Respiratory: normal breath sounds, no respiratory distress, no accessory muscle use Cardiovascular: regular rate, rhythm, systolic murmur (1-2/6) Gastrointestinal: normal bowel sounds, non tender, soft; No hernia, No mass; other (ABDOMEN IS ROTUND BUT SOFT. 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, no motor/sensory deficits, alert, normal mood/affect, oriented x 3 Skin: normal color, warm/dry; No rash Progress/Results/Core Measures Results/Orders Lab Results Laboratory Tests Test 05/08/22 21:40 05/08/22 22:37 Range/Units White Blood Count 12.3 H 4.3-11.0 10^3/uL Red Blood Count 3.99 3.80-5.11 10^6/uL Hemoglobin 12.3 11.5-16.0 g/dL Hematocrit 36 35-52 % Mean Corpuscular Volume 91 80-99 fL Mean Corpuscular Hemoglobin 31 25-34 pg Mean Corpuscular Hemoglobin Concent 34 32-36 g/dL Red Cell Distribution Width 12.5 10.0-14.5 % Platelet Count 314 130-400 10^3/uL Mean Platelet Volume 9.3 9.0-12.2 fL Immature Granulocyte % (Auto) 0 % Neutrophils (%) (Auto) 74 42-75 % Lymphocytes (%) (Auto) 17 12-44 % Monocytes (%) (Auto) 7 0-12 % Eosinophils (%) (Auto) 1 0-10 % Basophils (%) (Auto) 1 0-10 % Neutrophils # (Auto) 9.1 H 1.8-7.8 10^3/uL Lymphocytes # (Auto) 2.1 1.0-4.0 10^3/uL Monocytes # (Auto) 0.9 0.0-1.0 10^3/uL Eosinophils # (Auto) 0.1 0.0-0.3 10^3/uL Basophils # (Auto) 0.1 0.0-0.1 10^3/uL Immature Granulocyte # (Auto) 0.0 0.0-0.1 10^3/uL Sodium Level 133 L 135-145 MMOL/L Potassium Level 4.1 3.6-5.0 MMOL/L Chloride Level 97 L 98-107 MMOL/L Carbon Dioxide Level 22 21-32 MMOL/L Anion Gap 14 5-14 MMOL/L Blood Urea Nitrogen 19 H 7-18 MG/DL Creatinine 1.93 H 0.60-1.30 MG/DL Estimat Glomerular Filtration Rate 27 BUN/Creatinine Ratio 10 Glucose Level 247 H 70-105 MG/DL Calcium Level 9.1 8.5-10.1 MG/DL Corrected Calcium 9.0 8.5-10.1 MG/DL Magnesium Level 1.7 1.6-2.4 MG/DL Total Bilirubin 0.5 0.1-1.0 MG/DL Aspartate Amino Transf (AST/SGOT) 21 5-34 U/L Alanine Aminotransferase (ALT/SGPT) 28 0-55 U/L Alkaline Phosphatase 101 40-136 U/L Total Protein 7.7 6.4-8.2 GM/DL Albumin 4.1 3.2-4.5 GM/DL Amylase Level 72 25-125 U/L Lipase 60 8-78 U/L Urine Color YELLOW Urine Clarity CLEAR Urine pH 6.0 5-9 Urine Specific Peck 1.020 1.016-1.022 Urine Protein 1+ H NEGATIVE Urine Glucose (UA) 1+ H NEGATIVE Urine Ketones NEGATIVE NEGATIVE Urine Nitrite NEGATIVE NEGATIVE Urine Bilirubin NEGATIVE NEGATIVE Urine Urobilinogen 0.2 < = 1.0 MG/DL Urine Leukocyte Esterase TRACE H NEGATIVE Urine RBC (Auto) TRACE-L H NEGATIVE Urine RBC RARE /HPF Urine WBC 0-2 /HPF Urine Squamous Epithelial Cells 0-2 /HPF Urine Renal Epithelial Cells NONE /HPF Urine Crystals NONE /LPF Urine Bacteria TRACE /HPF Urine Casts NONE /LPF Urine Mucus NEGATIVE /LPF Urine Culture Indicated NO My Orders Orders - MARJ DAMON DO Acute Abd Series (05/08/22 21:03) Ed Iv/Invasive Line Start (05/08/22 21:07) Monitor-Rhythm Ecg Trace Only (05/08/22 21:07) Ct Abd/Pelvis Wo(Kidney Stone) (05/08/22 21:07) Amylase (05/08/22 21:07) Cbc With Automated Diff (05/08/22 21:07) Comprehensive Metabolic Panel (05/08/22 21:07) Lipase (05/08/22 21:07) Magnesium (05/08/22 21:07) Ua Culture If Indicated (05/08/22 21:07) Ondansetron Injection (Zofran Injectio (05/08/22 21:15) Ed Iv/Invasive Line Start (05/08/22 21:07) Lactated Ringers (Lr 1000 Ml Iv Solution (05/08/22 21:15) Ed Iv/Invasive Line Start (05/08/22 22:16) Ns Iv 1000 Ml (Sodium Chloride 0.9%) (05/08/22 22:30) Hyoscyamine Sl Tablet (Levsin Sl Tablet) (05/08/22 22:30) Pantoprazole Injection (Protonix Injecti (05/08/22 22:30) Medications Given in ED Current Medications Medications Dose Ordered Sig/Cheryl Route Start Time Stop Time Status Last Admin Dose Admin Hyoscyamine Sulfate 0.25 mg ONCE ONCE SL 05/08/22 22:30 05/08/22 22:31 DC 05/08/22 23:00 0.25 MG Lactated Ringer's 1,000 ml @ 0 mls/hr Q0M ONCE IV 05/08/22 21:15 05/08/22 21:16 DC 05/08/22 21:42 0 MLS/HR Ondansetron HCl 4 mg ONCE ONCE IVP 05/08/22 21:15 05/08/22 21:16 DC 05/08/22 21:42 4 MG Pantoprazole 40 mg ONCE ONCE IV 05/08/22 22:30 05/08/22 22:31 DC 05/08/22 23:00 40 MG Vital Signs/I&O 05/08/22 05/09/22 20:55 00:10 Temp 37.9 Pulse 105 96 Resp 16 18 B/P (MAP) 190/77 (114) 167/83 Pulse Ox 94 94 O2 Delivery Room Air Room Air Progress Progress Note : Progress Note GIVEN IV FLUIDS, ZOFRAN, LEVSIN AND PROTONIX WITH RESOLUTION OF SYMPTOMS UNEVENTFUL ER STAY Diagnostic Imaging Comments ACUTE ABDOMEN XRAYS--PER RADIOLOGIST REPORT AT 2136 FINDINGS: The chest is clear with no infiltrates, effusions or pneumothorax. Heart and pulmonary vasculature normal. No free air seen beneath diaphragm. There is contrast throughout the colon. There is a nonobstructive bowel gas pattern with no free air appreciated. There are no dilated loops of bowel. There are clips in the right upper quadrant. IMPRESSION: 1. No acute cardiopulmonary process. 2. Nonobstructive bowel gas pattern. CT ABDOMEN/PELVIS--PER RADIOLOGIST REPORT AT 2151 COMPARISON: 05/07/2022 FINDINGS: The lung bases appear clear. Again seen are multiple nonobstructive stones in both kidneys with the left kidney diffusely atrophied. There is no hydronephrosis or ureteral stones on either side. The remaining nonopacified abdominal viscera limited due to lack of contrast with no gross acute abnormality appreciated in the liver or spleen. The pancreas is unremarkable. Adrenal glands unremarkable. There is evidence of previous cholecystectomy. There is contrast throughout the colon which is nondistended. There is no ascites. There is no free air. Appendix is normal. Uterus is surgically absent. There is atherosclerotic disease along the aorta with no aneurysmal dilatation appreciated. The osseous structures stable from recent imaging. IMPRESSION: 1. Bilateral nonobstructive nephrolithiasis with no hydronephrosis or ureteral stones seen. Remaining abdomen and pelvis stable from recent imaging with contrast throughout the colon now noted. Reviewed: Reviewed by Me Departure Impression Primary Impression: Nausea alone Additional Impressions: Poorly controlled diabetes mellitus Mild dehydration Disposition: 01 HOME, SELF-CARE Condition: Improved Departure-Patient Inst. Decision time for Depature: 23:19 Referrals: LUPIS GOODEN APRN (PCP) Primary Care Physician [facility] (Family) Primary Care Physician Patient Instructions: Nausea and Vomiting, Adult (DC), Dehydration, Adult ED, Type 2 Diabetes Add. Discharge Instructions: LOTS OF CLEAR LIQUIDS--WATER, BROTH, JELLO, GATORADE BRATS DIET--BANANAS, RICE, APPLESAUCE, TOAST, SALTINES TAKE YOUR MEDICATIONS PRESCRIBED CHECK YOUR BLOOD SUGAR AT LEAST 3 TIMES A DAY --BEFORE EACH MEAL FOLLOW UP WITH YOUR DR THIS WEEK FOR FURTHER CARE--CALL IN THE MORNING TO SCHEDULE APPOINTMENT Scripts Hyoscyamine Sulfate (Levsin-Sl) 0.125 Mg Tab.subl 0.25 MG SL Q4H, #20 TAB Prov: MARJ DAMON DO 05/08/22 Ondansetron (Ondansetron Odt) 8 Mg Tab.rapdis 8 MG PO Q6H, #20 TAB Prov: MARJ DAMON DO 05/08/22 Pantoprazole Sodium (Protonix) 40 Mg Tablet.dr 40 MG PO DAILY, #15 TAB Prov: MARJ DAMON DO 05/08/22 MARJ DAMON DO May 08, 2022 21:16
--- NOTE | 2022-05-08 21:34 | Diagnostic Imaging Report ---
INDICATION: Abdominal pain. EXAMINATION: Abdomen series 05/08/2022 FINDINGS: The chest is clear with no infiltrates, effusions or pneumothorax. Heart and pulmonary vasculature normal. No free air seen beneath diaphragm. There is contrast throughout the colon. There is a nonobstructive bowel gas pattern with no free air appreciated. There are no dilated loops of bowel. There are clips in the right upper quadrant. IMPRESSION: 1. No acute cardiopulmonary process. 2. Nonobstructive bowel gas pattern. Dictated by: Dictated on workstation # [id number]
--- NOTE | 2022-05-08 21:38 | Diagnostic Imaging Report ---
PROCEDURE: CT urinary tract, rule out kidney stone. TECHNIQUE: Multiple contiguous axial images were obtained through the abdomen and pelvis without the use of intravenous contrast. Auto Exposure Controls were utilized during the CT exam to meet ALARA standards for radiation dose reduction. INDICATION: Abdominal pain and constipation. Hysterectomy and cholecystectomy. Question stones. Flank pain. EXAMINATION: CT abdomen and pelvis without contrast 05/08/2022. COMPARISON: 05/07/2022 FINDINGS: The lung bases appear clear. Again seen are multiple nonobstructive stones in both kidneys with the left kidney diffusely atrophied. There is no hydronephrosis or ureteral stones on either side. The remaining nonopacified abdominal viscera limited due to lack of contrast with no gross acute abnormality appreciated in the liver or spleen. The pancreas is unremarkable. Adrenal glands unremarkable. There is evidence of previous cholecystectomy. There is contrast throughout the colon which is nondistended. There is no ascites. There is no free air. Appendix is normal. Uterus is surgically absent. There is atherosclerotic disease along the aorta with no aneurysmal dilatation appreciated. The osseous structures stable from recent imaging. IMPRESSION: 1. Bilateral nonobstructive nephrolithiasis with no hydronephrosis or ureteral stones seen. Remaining abdomen and pelvis stable from recent imaging with contrast throughout the colon now noted. Dictated by: Dictated on workstation # [id number]
[2022-05-08 21:49] LABS: BASOPHILS # (AUTO) 0.1 10^3/uL (0.0-0.1); BASOPHILS % (AUTO) 1 % (0-10); EOSINOPHILS # (AUTO) 0.1 10^3/uL (0.0-0.3); EOSINOPHILS % (AUTO) 1 % (0-10); HEMATOCRIT 36 % (35-52); HEMOGLOBIN 12.3 g/dL (11.5-16.0); LYMPHOCYTES # (AUTO) 2.1 10^3/uL (1.0-4.0); LYMPHOCYTES % (AUTO) 17 % (12-44); MEAN CORPUSCULAR HEMOGLOBIN 31 pg (25-34); MEAN CORPUSCULAR HGB CONC 34 g/dL (32-36); MEAN CORPUSCULAR VOLUME 91 fL (80-99); MEAN PLATELET VOLUME 9.3 fL (9.0-12.2); MONOCYTES # (AUTO) 0.9 10^3/uL (0.0-1.0); MONOCYTES % (AUTO) 7 % (0-12); NEUTROPHILS # (AUTO) 9.1 10^3/uL (1.8-7.8); NEUTROPHILS % (AUTO) 74 % (42-75); PLATELET COUNT 314 10^3/uL (130-400); WHITE BLOOD COUNT 12.3 10^3/uL (4.3-11.0)
[2022-05-08 22:06] LABS: ALBUMIN 4.1 GM/DL (3.2-4.5)
[2022-05-08 22:07] LABS: POTASSIUM 4.1 MMOL/L (3.6-5.0)
[2022-05-08 22:08] LABS: CALCIUM 9.1 MG/DL (8.5-10.1)
[2022-05-08 22:09] LABS: TOTAL PROTEIN 7.7 GM/DL (6.4-8.2)
[2022-05-08 22:11] LABS: BILIRUBIN,TOTAL 0.5 MG/DL (0.1-1.0)
[2022-05-08 22:13] LABS: CREATININE SERUM 1.93 MG/DL (0.60-1.30)
[2022-05-08 22:15] LABS: MAGNESIUM 1.7 MG/DL (1.6-2.4)
[2022-05-08] MEDS ORDERED: PANTOPRAZOLE 40 MG (PROTONIX) VIAL IV ONE (22:30)
[2022-05-08] MEDS ORDERED: HYOSCYAMINE 0.125 MG (LEVSIN) TAB SL ONE (22:30)
[2022-05-08] MEDS ORDERED: NS IV 1000 ML 1,000 ML IV SCH (22:30)
[2022-05-08 22:45] LABS: BILIRUBIN,URINE NEGATIVE (NEGATIVE); CLARITY,URINE CLEAR; COLOR,URINE YELLOW; GLUCOSE, URINE (UA) 1+ (NEGATIVE); KETONES,URINE NEGATIVE (NEGATIVE); LEUKOCYTE ESTERASE ,URINE TRACE (NEGATIVE); NITRITE,URINE NEGATIVE (NEGATIVE); PROTEIN,URINE 1+ (NEGATIVE)
[2022-05-08 22:50] LABS: BACTERIA,URINE TRACE /HPF; RBC,URINE RARE /HPF; SQUAMOUS EPITHELIAL CELL,UR 0-2 /HPF; WBC,URINE 0-2 /HPF
[2022-05-08] MEDS ORDERED: ONDA8TAB13 PO (23:23)
[2022-05-08] MEDS ORDERED: PANT40TA2 PO (23:23)
[2022-05-08] MEDS ORDERED: HYOS0.1283 SL (23:23)
[2022-05-09 00:10] VITALS: BP 167/83
[2022-05-10] MEDS ORDERED: METO5TAB75 PO (15:26)
== END 2022-05-09 00:10 | disposition home or self-care (01) ==
LOC: EDUNIT# 20:42 → ER 20:46
DX: E11.65 Type 2 diabetes mellitus with hyperglycemia (principal); E86.0 Dehydration; R11.0 Nausea
CPT/HCPCS: 36415; 74022; 74176; 80053; 81000; 82150; 83690; 83735; 85025; 93041

== ENCOUNTER 2022-05-10 09:56 | Emergency (ER) | payer MEDICARE, OTHER ==
[~2022-05-10] VITALS: Ht 165.1 cm; Wt 86.0 kg
[~2022-05-10 09:56] MED LIST changes: +HYOS0.1283 SL; +ONDA8TAB13 PO; +PANT40TA2 PO
[2022-05-10 10:12] LABS: BILIRUBIN,URINE NEGATIVE (NEGATIVE); CLARITY,URINE CLEAR; COLOR,URINE YELLOW; GLUCOSE, URINE (UA) NEGATIVE (NEGATIVE); KETONES,URINE NEGATIVE (NEGATIVE); LEUKOCYTE ESTERASE ,URINE NEGATIVE (NEGATIVE); NITRITE,URINE NEGATIVE (NEGATIVE); PROTEIN,URINE TRACE (NEGATIVE)
[2022-05-10 10:34] LABS: BACTERIA,URINE NEGATIVE /HPF; SQUAMOUS EPITHELIAL CELL,UR RARE /HPF
[2022-05-10] MEDS ORDERED: CEFEPIME INJECTION 1,000 MG in NS (IVPB) 50 ML IV ONE (10:45)
[2022-05-10] MEDS ORDERED: NS IV 1000 ML 1,000 ML IV SCH ×2 (10:45)
[2022-05-10] MEDS ORDERED: VANCOMYCIN INJECTION 1,750 MG in NS IV 500 ML 500 ML IV ONE (10:45)
[2022-05-10] MEDS ORDERED: VANCOMYCIN INJECTION 1,750 MG in NS IV 500 ML 500 ML IV NR (11:00)
[2022-05-10 11:21] LABS: BASOPHILS % (AUTO) 0 % (0-10); EOSINOPHILS # (AUTO) 0.1 10^3/uL (0.0-0.3); EOSINOPHILS % (AUTO) 1 % (0-10); HEMATOCRIT 36 % (35-52); HEMOGLOBIN 12.1 g/dL (11.5-16.0); LYMPHOCYTES # (AUTO) 1.3 10^3/uL (1.0-4.0); LYMPHOCYTES % (AUTO) 12 % (12-44); MEAN CORPUSCULAR HEMOGLOBIN 31 pg (25-34); MEAN CORPUSCULAR HGB CONC 34 g/dL (32-36); MEAN CORPUSCULAR VOLUME 92 fL (80-99); MEAN PLATELET VOLUME 9.5 fL (9.0-12.2); MONOCYTES # (AUTO) 0.8 10^3/uL (0.0-1.0); MONOCYTES % (AUTO) 7 % (0-12); NEUTROPHILS # (AUTO) 8.7 10^3/uL (1.8-7.8); NEUTROPHILS % (AUTO) 80 % (42-75); PLATELET COUNT 297 10^3/uL (130-400); WHITE BLOOD COUNT 10.9 10^3/uL (4.3-11.0)
--- NOTE | 2022-05-10 11:24 | Diagnostic Imaging Report ---
Indication: Abdominal pain Portable chest 11:17 AM Heart size and pulmonary vascularity are normal. Lungs are clear. There are no effusions or pneumothoraces. IMPRESSION: No acute abnormalities in the chest Dictated by: Dictated on workstation # [id number]
[2022-05-10] MEDS ORDERED: ONDANSETRON 4 MG/2 ML (SDV) Z0FRAN ONE (11:28)
--- NOTE | 2022-05-10 11:29 | ED Abdominal Pain ---
General Chief Complaint: Abdominal/GI Problems Stated Complaint: ABD PAIN - FEVER Nursing Triage Note: arrives thisam with a c/o dizziness, upset stomach and thinks she had fever at home. patient is poor historian, states her mentation has decreased significantly in the last few days. Also c/o severe belly pain and intense dry mouth. Source of Information: Patient Exam Limitations: No Limitations History of Present Illness Date Seen by Provider: May 10, 2022 Time Seen by Provider: 11:01 Initial Comments Patient to the ER by with her significant other chief complaint of dizziness, epigastric pain, fever 100.3 T-max and confusion over the past 3 to 4 days, forgetting things. He states she will forget what channels they have watched for years. She will forget what she is doing. This is unlike her. She has been having nausea and retching and this is been going on for about 6 weeks. She had a EGD about a year ago at [facility] which was unremarkable. She had her gallbladder out and hysterectomy. She has been using laxatives because she thought maybe she was constipated prior to this. She was seen 3 days ago by this provider at that time having left lower quadrant pain and was determined that is probably caused by the stimulant laxatives. Her work-up including labs and CT were unremarkable otherwise. She has an appointment tomorrow with Dr. Tejeda her PCP. She was seen 2 days ago by this ER and at that time was having some nausea given another CT which was unremarkable. Given some nausea medications which she says she has been taking at home as well. She has not had any antipyretics today. She was sent home with hyoscyamine and Protonix from her visit 2 days ago and took it for the first time yesterday evening. She did not think it helped her symptoms. She has a history of diabetes. She took ondansetron at home without significant relief of symptoms. Allergies and Home Medications Allergies Coded Allergies: levofloxacin (Verified Adverse Reaction, Unknown, mental status change, 05/07/22) niacin (Verified Adverse Reaction, Unknown, flushing, 05/07/22) Patient Home Medication List Home Medication List Reviewed: Yes Fexofenadine HCl (Fexofenadine HCl) 180 Mg Tablet, 180 MG PO DAILY, (Reported) Entered as Reported by: JANEY ZAVALA on 08/28/20 6336 Hydrochlorothiazide (Hydrochlorothiazide) 12.5 Mg Tablet, 12.5 MG PO DAILY, (Reported) Entered as Reported by: JANEY ZAVALA on 08/28/201718 Hyoscyamine Sulfate (Levsin-Sl) 0.125 Mg Tab.subl, 0.25 MG SL Q4H Prescribed by: MARJ DAMON on 05/08/22 232 Insulin Glargine,Hum.rec.anlog (Lantus Solostar) 100 Unit/1 Ml Insuln.pen, 25 UNIT SC HS, (Reported) Entered as Reported by: JANEY ZAVALA on 08/28/201718 Losartan Potassium (Losartan Potassium) 100 Mg Tablet, 100 MG PO DAILY, (Reported) Entered as Reported by: JANEY ZAVALA on 08/28/201718 Omeprazole (Omeprazole) 40 Mg Capsule.dr, 40 MG PO DAILY, (Reported) Entered as Reported by: JANEY ZAVALA on 08/28/201718 Ondansetron (Ondansetron Odt) 4 Mg Tab.rapdis, 4 MG PO Q6H PRN for NAUSEA/VOMITING Prescribed by: TOYA SALAZAR on 05/07/22 0600 Ondansetron (Ondansetron Odt) 8 Mg Tab.rapdis, 8 MG PO Q6H Prescribed by: MARJ DAMON on 05/08/222322 Pantoprazole Sodium (Protonix) 40 Mg Tablet.dr, 40 MG PO DAILY Prescribed by: MARJ DAMON on 05/08/222322 Review of Systems Review of Systems Constitutional: No chills, No diaphoresis; fever EENTM: No Blurred Vision, No Double Vision Respiratory: Denies Cough, Denies Shortness of Air Cardiovascular: Denies Chest Pain, Denies Lightheadedness Gastrointestinal: Denies Constipated, Denies Diarrhea; Nausea, Poor Fluid Intake Genitourinary: Denies Burning, Denies Discharge Musculoskeletal: No back pain Skin: No pruritus, No rash Psychiatric/Neurological: Denies Depressed, Denies Headache All Other Systems Reviewed Negative Unless Noted: Yes Past Ruotmpg-Ebhros-Kvoasd Hx Patient Social History Tobacco Use?: No Use of E-Cig and/or Vaping dev: No Substance use?: No Alcohol Use?: No Pt feels they are or have been: No Immunizations Up To Date Tetanus Booster (TDap): More than 5yrs First/Initial COVID19 Vaccinat: 2020 Second COVID19 Vaccination Jaun: 2020 Third COVID19 Vaccination Date: 2021 COVID19 Vaccine Equipment Monitor Phototypesetting: Ivy Seasonal Allergies Seasonal Allergies: No Past Medical History Surgery/Hospitalization HX: HTN, HIGH CHOLESTEROL Surgeries: Yes (EAR DRUM REPLACEMENT, R AND L ROTATOR CUFF, RIGHT ANKLE) Ear Surgery, Gallbladder, Orthopedic Respiratory: No Cardiac: Yes High Cholesterol, Hypertension Neurological: No Reproductive Disorders: No HIV/AIDS: No Genitourinary: Yes Kidney Stones, UTI-Chronic Gastrointestinal: Yes Gastrointestinal Bleed, Ulcer Musculoskeletal: Yes Arthritis, Chronic Back Pain, Gout Endocrine: Yes Diabetes, Non-Insulin dep HEENT: No Loss of Vision: Bilateral Cancer: No Did You Recieve Any Treatments: No Psychosocial: Yes Anxiety, Depression Integumentary: No Blood Disorders: No Adverse Reaction/Blood Tranf: No Family Medical History No Pertinent Family Hx Physical Exam Vital Signs Vital Signs - First Documented 05/10/22 10:04 Temp 35.8 Pulse 93 Resp 20 B/P (MAP) 170/84 (112) Pulse Ox 95 Capillary Refill : Less Than 3 Seconds Height/Weight/BMI Height: 5'4.00" Weight: 150lbs. oz. 68.313896re; 31.00 BMI Method:Stated General Appearance: WD/WN, no apparent distress HEENT: PERRL/EOMI, pharynx normal Neck: full range of motion, supple, normal inspection Respiratory: lungs clear, normal breath sounds, no respiratory distress, no accessory muscle use Cardiovascular: normal peripheral pulses, regular rate, rhythm Peripheral Pulses: 2+ Radial Pulses (R), 2+ Radial Pulses (L) Gastrointestinal: normal bowel sounds, soft, tenderness (Epigastric with right upper quadrant and left upper quadrant abdominal tenderness 2. Negative for Lee sign McBurney's point or psoas sign.) Extremities: normal range of motion, non-tender, normal inspection, normal capillary refill Neurologic/Psychiatric: condominium manager II-XII nml as tested, no motor/sensory deficits, alert, normal mood/affect, oriented x 3 Skin: normal color, warm/dry Focused Exam Lactate Level 05/10/22 11:00: Lactic Acid Level 0.99 Lactic Acid Level Laboratory Tests Test 05/10/22 11:00 Lactic Acid Level 0.99 MMOL/L (0.50-2.00) Progress/Results/Core Measures Results/Orders Lab Results Laboratory Tests Test 05/10/22 10:00 05/10/22 11:00 05/10/22 11:20 05/10/22 11:54 Range/Units Urine Color YELLOW YELLOW Urine Clarity CLEAR CLEAR Urine pH 6.0 6.0 5-9 Urine Specific [place] <=1.005 1.010 L 1.016-1.022 Urine Protein TRACE H TRACE H NEGATIVE Urine Glucose (UA) NEGATIVE NEGATIVE NEGATIVE Urine Ketones NEGATIVE NEGATIVE NEGATIVE Urine Nitrite NEGATIVE NEGATIVE NEGATIVE Urine Bilirubin NEGATIVE NEGATIVE NEGATIVE Urine Urobilinogen 0.2 0.2 < = 1.0 MG/DL Urine Leukocyte Esterase NEGATIVE NEGATIVE NEGATIVE Urine RBC (Auto) NEGATIVE NEGATIVE NEGATIVE Urine RBC NONE NONE /HPF Urine WBC NONE NONE /HPF Urine Squamous Epithelial Cells RARE RARE /HPF Urine Crystals NONE NONE /LPF Urine Bacteria NEGATIVE NEGATIVE /HPF Urine Casts NONE NONE /LPF Urine Mucus NEGATIVE NEGATIVE /LPF Urine Culture Indicated NO CULTURE PENDING White Blood Count 10.9 4.3-11.0 10^3/uL Red Blood Count 3.93 3.80-5.11 10^6/uL Hemoglobin 12.1 11.5-16.0 g/dL Hematocrit 36 35-52 % Mean Corpuscular Volume 92 80-99 fL Mean Corpuscular Hemoglobin 31 25-34 pg Mean Corpuscular Hemoglobin Concent 34 32-36 g/dL Red Cell Distribution Width 12.4 10.0-14.5 % Platelet Count 297 130-400 10^3/uL Mean Platelet Volume 9.5 9.0-12.2 fL Immature Granulocyte % (Auto) 1 % Neutrophils (%) (Auto) 80 H 42-75 % Lymphocytes (%) (Auto) 12 12-44 % Monocytes (%) (Auto) 7 0-12 % Eosinophils (%) (Auto) 1 0-10 % Basophils (%) (Auto) 0 0-10 % Neutrophils # (Auto) 8.7 H 1.8-7.8 10^3/uL Lymphocytes # (Auto) 1.3 1.0-4.0 10^3/uL Monocytes # (Auto) 0.8 0.0-1.0 10^3/uL Eosinophils # (Auto) 0.1 0.0-0.3 10^3/uL Basophils # (Auto) 0.0 0.0-0.1 10^3/uL Immature Granulocyte # (Auto) 0.1 0.0-0.1 10^3/uL Prothrombin Time 12.5 12.2-14.7 SEC INR Comment 0.9 0.8-1.4 Activated Partial Thromboplast Time 26 24-35 SEC Sodium Level 135 135-145 MMOL/L Potassium Level 4.3 3.6-5.0 MMOL/L Chloride Level 100 98-107 MMOL/L Carbon Dioxide Level 24 21-32 MMOL/L Anion Gap 11 5-14 MMOL/L Blood Urea Nitrogen 15 7-18 MG/DL Creatinine 1.43 H 0.60-1.30 MG/DL Estimat Glomerular Filtration Rate 38 BUN/Creatinine Ratio 10 Glucose Level 157 H 70-105 MG/DL Lactic Acid Level 0.99 0.50-2.00 MMOL/L Calcium Level 9.0 8.5-10.1 MG/DL Corrected Calcium 9.0 8.5-10.1 MG/DL Total Bilirubin 0.7 0.1-1.0 MG/DL Aspartate Amino Transf (AST/SGOT) 20 5-34 U/L Alanine Aminotransferase (ALT/SGPT) 23 0-55 U/L Alkaline Phosphatase 97 40-136 U/L Ammonia 18 11-32 UMOL/L Total Protein 7.1 6.4-8.2 GM/DL Albumin 4.0 3.2-4.5 GM/DL Lipase 26 8-78 U/L Serum Alcohol < 10 <10 MG/DL SARS-CoV-2 RNA (RT-PCR) Not Detected Not Detecte Urine Opiates Screen NEGATIVE NEGATIVE Urine Oxycodone Screen NEGATIVE NEGATIVE Urine Methadone Screen NEGATIVE NEGATIVE Urine Propoxyphene Screen NEGATIVE NEGATIVE Urine Barbiturates Screen NEGATIVE NEGATIVE Ur Tricyclic Antidepressants Screen NEGATIVE NEGATIVE Urine Phencyclidine Screen NEGATIVE NEGATIVE Urine Amphetamines Screen NEGATIVE NEGATIVE Urine Methamphetamines Screen NEGATIVE NEGATIVE Urine Benzodiazepines Screen NEGATIVE NEGATIVE Urine Cocaine Screen NEGATIVE NEGATIVE Urine Cannabinoids Screen NEGATIVE NEGATIVE My Orders Orders - TOYA SALAZAR Ua Culture If Indicated (05/10/22 10:01) Cbc With Automated Diff (05/10/22 10:41) Comprehensive Metabolic Panel (05/10/22 10:41) Blood Culture (05/10/22 10:41) Sputum Culture (05/10/22 10:41) Urinalysis (05/10/22 10:41) Urine Culture (05/10/22 10:41) Protime With Inr (05/10/22 10:41) Partial Thromboplastin Time (05/10/22 10:41) Chest 1 View, Ap/Pa Only (05/10/22 10:41) Ed Iv/Invasive Line Start (05/10/22 10:41) Ed Iv/Invasive Line Start (05/10/22 10:41) Vital Signs Adult Sepsis Patie Q15M (05/10/22 10:41) O2 (05/10/22 10:41) Remove Rings In Anticipation O (05/10/22 10:41) Lactic Acid Analyzer (05/10/22 10:41) Ns Iv 1000 Ml (Sodium Chloride 0.9%) (05/10/22 10:45) Cefepime Injection (Maxipime Injection) (05/10/22 10:45) Vancomycin Injection (Vancomycin Injecti (05/10/22 10:45) Ed Iv/Invasive Line Start (05/10/22 10:41) Ns Iv 1000 Ml (Sodium Chloride 0.9%) (05/10/22 10:45) Ct Abdomen/Pelvis W (05/10/22 10:41) Lipase (05/10/22 10:41) Ammonia (05/10/22 10:41) Alcohol (05/10/22 10:43) Drug Screen Stat (Urine) (05/10/22 10:43) Vancomycin Injection (Vancomycin Injecti (05/10/22 11:00) Ondansetron Injection (Zofran Injectio (05/10/22 11:30) Ondansetron Injection (Zofran Injectio (05/10/22 11:28) Ondansetron Injection (Zofran Injectio (05/10/22 11:45) Metoclopramide Injection (Reglan Injecti (05/10/22 11:45) Diphenhydramine Injection (Benadryl Inje (05/10/22 11:45) Iohexol Injection (Omnipaque 350 Mg/Ml 1 (05/10/22 12:15) Received Contrast (Hold Metformin- Contr (05/10/22 12:15) Ns (Ivpb) (Sodium Chloride 0.9% Ivpb Bag (05/10/22 12:15) Sodium Chloride Flush (Catheter Flush Sy (05/10/22 12:15) Covid 19 Inhouse Test (05/10/22 12:25) Ct Head Wo (05/10/22 13:37) Medications Given in ED Current Medications Medications Dose Ordered Sig/Cheryl Route Start Time Stop Time Status Last Admin Dose Admin Cefepime HCl 1000 mg/Sodium Chloride 50 ml @ 100 mls/hr ONCE ONCE IV 05/10/22 10:45 05/10/22 11:14 DC 05/10/22 11:39 100 MLS/HR Diphenhydramine HCl 25 mg ONCE ONCE IVP 05/10/22 11:45 05/10/22 11:46 DC 05/10/22 12:09 25 MG Iohexol 100 ml ONCE ONCE IV 05/10/22 12:15 05/10/22 12:16 DC 05/10/22 12:36 60 ML Metoclopramide HCl 10 mg ONCE ONCE IVP 05/10/22 11:45 05/10/22 11:46 DC 05/10/22 12:12 10 MG Ondansetron HCl 8 mg ONCE ONCE IVP 05/10/22 11:30 05/10/22 11:35 DC 05/10/22 11:32 4 MG Sodium Chloride 10 ml NEEDED PRN IV 05/10/22 12:15 05/10/22 12:36 10 ML Sodium Chloride 100 ml ONCE ONCE IV 05/10/22 12:15 05/10/22 12:16 DC 05/10/22 12:36 80 ML Vital Signs/I&O 05/10/22 10:04 Temp 35.8 Pulse 93 Resp 20 B/P (MAP) 170/84 (112) Pulse Ox 95 Blood Pressure Mean: 112 Progress Progress Note #1: Time: 13:12 Progress Note Perhaps she is having some delirium related to?. Previously she was seen and thought there is having some abdominal discomfort due to stimulant laxatives. Now her discomfort is in a different place in her abdomen and she has discontinued the laxatives. She says she did have a stool couple days ago. She has had CTs laboratory work-up there were unrevealing. She is diabetic so we will try some Reglan to see if maybe she is having gastroparesis as a source of her symptoms. Progress Note #2: Time: 13:39 Progress Note Patient was very wobbly on her feet when the nurse got her up to go to the bathroom. Normal pressure hydrocephalus? She is not having a headache so intraparenchymal spontaneous bleed seems less likely. Her symptoms have been insidious and slow to present over the last month and a half. We will get a CT of the head without IV contrast. Progress Note #3: Time: 15:23 Progress Note Patient seemed to get the most relief just from the Reglan. Has not needed any more nausea medicine since he got here. Rest of her imaging work-up is negative. Perhaps she would benefit from going back to see her GI doctor. She might also benefit from Reglan so we will send a prescription up to her pharmacy to try. Gastroparesis from diabetes could cause her bloating, nausea vomiting and abdominal discomfort but probably would not explain a subjective fever nor typically cause delirium. She has an appointment with her PCP's office tomorrow. Return precautions were given. Diagnostic Imaging Diagonstic Imaging: Xray Plain Films/CT/US/NM/MRI: chest Comments [facility] [place], [place] NAME: HERB ROUSE [facility] REC#: [id number] PT STATUS: REG ER : 04/07/1947 PHYSICIAN: TOYA SALAZAR MD ADMIT DATE: 05/10/22/ER Draft Date of Exam:05/10/22 CHEST 1 VIEW, AP/PA ONLY Indication: Fall, pain COMPARISON: 04/08/2020 TECHNIQUE: Single frontal radiograph of the chest dated 05/10/2022 FINDINGS: The cardiac silhouette is stable from the prior examination. Prominence of the superior mediastinum, similar to the prior examination and accentuated by significant patient rotation. No significant pulmonary vascular congestion. Background chronic interstitial lung changes are again identified. Chronic elevation right hemidiaphragm. Persistent mild bibasilar scarring. Low lung volumes. No new focal pulmonary opacity. No significant pleural effusion. No pneumothorax. Irregularity of the distal right clavicle is identified. Scattered osseous degenerative changes. IMPRESSION: Questionable fracturing of the distal right clavicle. Recommend correlation for focal pain at this location. If there is clinical concern for this location, then dedicated radiographs of the right clavicle would be recommended. Cortical irregularity involving the left humeral neck, concerning for fracture. Recommend dedicated radiographs of the left shoulder. Low lung volumes with background chronic interstitial lung changes with associated bibasilar scarring and/or atelectasis. Report was faxed and called to nurse Lonnie Bello ER by johanny at 12:40pm. Dictated on workstation # [id number] Dict: 05/10/22 1222 Trans: 05/10/22 1239 JOHANNY [id number] Interpreted by: MAY AGOSTO MD Electronically signed by: Reviewed: Reviewed by Me Diagonstic Imaging: CT Plain Films/CT/US/NM/MRI: abdomen, pelvis Comments [facility] [place] [place] NAME: KIKA HOLLAND [facility] REC#: [id number] PT STATUS: REG ER : 1950 PHYSICIAN: TOYA SALAZAR MD ADMIT DATE: 05/10/22/ER Draft Date of Exam:05/10/22 CT ABDOMEN/PELVIS W PROCEDURE: CT abdomen and pelvis with contrast. TECHNIQUE: Multiple contiguous axial images were obtained through the abdomen and pelvis after administration of intravenous contrast. Auto Exposure Controls were utilized during the CT exam to meet ALARA standards for radiation dose reduction. All CT scans use one or more of the following dose optimizing techniques: Automated exposure control, MA and/or KvP adjustment based on patient size and exam type or iterative reconstruction. INDICATION: Abdominal bloating. COMPARISON: 05/08/2022. FINDINGS: Included portions of the lung bases are clear. CT ABDOMEN: Multiple punctate bilateral nonobstructive renal calculi are seen bilaterally. No calculi are seen within either ureter. Additionally, there is no hydroureteronephrosis or other evidence of obstruction. Note is made of advanced atrophy of the left kidney. The adrenal glands, spleen, pancreas, and liver have an unremarkable CT appearance. Small bowel loops are nondistended. Normal appendix is identified. There is no loculated fluid collection, free fluid, or free air within the abdomen. No abnormal mesenteric or retroperitoneal adenopathy is seen. There is advanced diffuse calcified and noncalcified aortic and arterial atherosclerosis. Osseous structures show no acute abnormalities. CT PELVIS: Urinary bladder is unopacified. No calculi are seen within the urinary bladder. There is no loculated fluid collection, free fluid, or free air. No abnormal lymph nodes are seen. Osseous structures show no acute abnormalities. IMPRESSION: 1. Multiple punctate bilateral nonobstructive renal calculi. 2. No ureteral calculi, hydroureteronephrosis, or other evidence of obstruction. 3. No other acute abnormalities are seen within the abdomen or pelvis. Dictated on workstation # [id number] Dict: 05/10/22 1250 Trans: 05/10/22 1311 [id number] Interpreted by: LUCILA PARK MD Electronically signed by: Reviewed: Reviewed by Me Diagonstic Imaging: CT Plain Films/CT/US/NM/MRI: head Comments [facility] [place] [place] NAME: KIKA HOLLAND [facility] REC#: [id number] PT STATUS: REG ER : 1950 PHYSICIAN: TOYA SALAZAR MD ADMIT DATE: 05/10/22/ER Draft Date of Exam:05/10/22 CT HEAD WO PROCEDURE: CT head without contrast. TECHNIQUE: Multiple contiguous axial images were obtained through the brain without the use of intravenous contrast. Auto Exposure Controls were utilized during the CT exam to meet ALARA standards for radiation dose reduction. INDICATION: Confusion and poor balance. COMPARISON: Correlation is made with prior CT head from 04/29/2017. FINDINGS: There appears to be some contrast within the venous sinuses from IV contrast earlier today. Ventricles and sulci are within normal limits. No sulcal effacement or midline shift is identified. No acute intra-axial or extra-axial hemorrhage is detected. Cisterns are patent. Visualized paranasal sinuses are clear. IMPRESSION: No acute intracranial process is detected. Dictated on workstation # [id number] Dict: 05/10/22 1432 Trans: 05/10/22 1440 [facility] [id number] Interpreted by: ROMAINE SHARMA MD Electronically signed by: Reviewed: Reviewed by Me Departure Impression Primary Impression: Gastroparesis due to DM Disposition: 01 HOME, SELF-CARE Condition: Stable Departure-Patient Inst. Decision time for Depature: 15:24 Referrals: LUPIS GOODEN APRN (PCP) Primary Care Physician [facility] (Family) Primary Care Physician Patient Instructions: Gastroparesis (Delayed Gastric Emptying) (DC) Add. Discharge Instructions: Some of your symptoms of bloating, early satiety, nausea may be caused by diabetic gastroparesis. Review the handout for more information. Will trial 5 mg of Reglan every 8 hours as needed for nausea and/or vomiting. Keep her follow-up appointment with Dr. Tejeda's office tomorrow. Discuss follow-up with your GI doctor by making an appointment. Return to the ER promptly for intractable nausea, vomiting or abdominal pain. All discharge instructions reviewed with patient and/or family. Voiced understanding. Scripts Metoclopramide HCl (Reglan) 5 Mg Tablet 5 MG PO Q8H PRN for NAUSEA/VOMITING-2ND LINE, #15 TAB 0 Refills Prov: TOYA SALAZAR 05/10/22 Copy Copies To 1: SHANTELLE TEJEDA MD, TITUS J May 10, 2022 11:29
[2022-05-10] MEDS ORDERED: ONDANSETRON 4 MG/2 ML (SDV) Z0FRAN IVP ONE ×2 (11:30→11:45)
[2022-05-10 11:36] LABS: CHLORIDE 100 MMOL/L (98-107); INR 0.9 (0.8-1.4); POTASSIUM 4.3 MMOL/L (3.6-5.0); PROTHROMBIN TIME PATIENT 12.5 SEC (12.2-14.7); SODIUM 135 MMOL/L (135-145)
[2022-05-10 11:38] LABS: AMMONIA 18 UMOL/L (11-32)
[2022-05-10 11:39] LABS: GLUCOSE 157 MG/DL (70-105); TOTAL PROTEIN 7.1 GM/DL (6.4-8.2)
[2022-05-10 11:40] LABS: CARBON DIOXIDE 24 MMOL/L (21-32)
[2022-05-10 11:41] LABS: BILIRUBIN,TOTAL 0.7 MG/DL (0.1-1.0)
[2022-05-10 11:42] LABS: ALKALINE PHOSPHATASE 97 U/L (40-136)
[2022-05-10 11:43] LABS: CREATININE SERUM 1.43 MG/DL (0.60-1.30); GFR ESTIMATED 38
[2022-05-10 11:44] LABS: BUN/CREATININE RATIO 10
[2022-05-10 11:45] LABS: ALANINE AMINOTRANSFERASE 23 U/L (0-55)
[2022-05-10] MEDS ORDERED: diphenhydrAMINE 50 MG/ML INJ (BENADRYL) IVP ONE (11:45)
[2022-05-10] MEDS ORDERED: METOCLOPRAMIDE INJ 10 MG/2 ML (REGLAN) IVP ONE (11:45)
[2022-05-10 11:46] LABS: LIPASE 26 U/L (8-78)
[2022-05-10 11:58] LABS: BILIRUBIN,URINE NEGATIVE (NEGATIVE); CLARITY,URINE CLEAR; COLOR,URINE YELLOW; GLUCOSE, URINE (UA) NEGATIVE (NEGATIVE); KETONES,URINE NEGATIVE (NEGATIVE); LEUKOCYTE ESTERASE ,URINE NEGATIVE (NEGATIVE); NITRITE,URINE NEGATIVE (NEGATIVE); PROTEIN,URINE TRACE (NEGATIVE)
[2022-05-10 12:08] LABS: BACTERIA,URINE NEGATIVE /HPF; SQUAMOUS EPITHELIAL CELL,UR RARE /HPF
[2022-05-10 12:11] LABS: AMPHETAMINE SCREEN, URINE NEGATIVE (NEGATIVE); BARBITURATE SCREEN URINE NEGATIVE (NEGATIVE); BENZODIAZEPINES SCREEN URINE NEGATIVE (NEGATIVE); CANNABINOID SCREEN, URINE NEGATIVE (NEGATIVE); COCAINE SCREEN URINE NEGATIVE (NEGATIVE); METHADONE STAT NEGATIVE (NEGATIVE); OPIATE SCREEN URINE NEGATIVE (NEGATIVE); OXYCODONE STAT NEGATIVE (NEGATIVE); PROPOXYPHENE STAT NEGATIVE (NEGATIVE); TRICYCLIC ANTIDEPRESSANTS SCRE NEGATIVE (NEGATIVE)
[2022-05-10] MEDS ORDERED: NS 100 ML (IVPB) BAG IV ONE (12:15)
[2022-05-10] MEDS ORDERED: CATHETER FLUSH 10 ML SYR IV PRN (12:15)
[2022-05-10] MEDS ORDERED: IOHEXOL 350 MG/ML 100 ML (OMNIPAQUE 350) VIAL IV ONE (12:15)
[2022-05-10] MEDS ORDERED: HOLD METFORMIN - RECEIVED CONTRAST 20 ML VIAL IV SCH (12:15)
--- NOTE | 2022-05-10 13:11 | Diagnostic Imaging Report ---
PROCEDURE: CT abdomen and pelvis with contrast. TECHNIQUE: Multiple contiguous axial images were obtained through the abdomen and pelvis after administration of intravenous contrast. Auto Exposure Controls were utilized during the CT exam to meet ALARA standards for radiation dose reduction. All CT scans use one or more of the following dose optimizing techniques: Automated exposure control, MA and/or KvP adjustment based on patient size and exam type or iterative reconstruction. INDICATION: Abdominal bloating. COMPARISON: 05/08/2022. FINDINGS: Included portions of the lung bases are clear. CT ABDOMEN: Multiple punctate bilateral nonobstructive renal calculi are seen bilaterally. No calculi are seen within either ureter. Additionally, there is no hydroureteronephrosis or other evidence of obstruction. Note is made of advanced atrophy of the left kidney. The adrenal glands, spleen, pancreas, and liver have an unremarkable CT appearance. Small bowel loops are nondistended. Normal appendix is identified. There is no loculated fluid collection, free fluid, or free air within the abdomen. No abnormal mesenteric or retroperitoneal adenopathy is seen. There is advanced diffuse calcified and noncalcified aortic and arterial atherosclerosis. Osseous structures show no acute abnormalities. CT PELVIS: Urinary bladder is unopacified. No calculi are seen within the urinary bladder. There is no loculated fluid collection, free fluid, or free air. No abnormal lymph nodes are seen. Osseous structures show no acute abnormalities. IMPRESSION: 1. Multiple punctate bilateral nonobstructive renal calculi. 2. No ureteral calculi, hydroureteronephrosis, or other evidence of obstruction. 3. No other acute abnormalities are seen within the abdomen or pelvis. Dictated by: Dictated on workstation # [id number]
--- NOTE | 2022-05-10 14:41 | Diagnostic Imaging Report ---
PROCEDURE: CT head without contrast. TECHNIQUE: Multiple contiguous axial images were obtained through the brain without the use of intravenous contrast. Auto Exposure Controls were utilized during the CT exam to meet ALARA standards for radiation dose reduction. INDICATION: Confusion and poor balance. COMPARISON: Correlation is made with prior CT head from 04/29/2017. FINDINGS: There appears to be some contrast within the venous sinuses from IV contrast earlier today. Ventricles and sulci are within normal limits. No sulcal effacement or midline shift is identified. No acute intra-axial or extra-axial hemorrhage is detected. Cisterns are patent. Visualized paranasal sinuses are clear. IMPRESSION: No acute intracranial process is detected. Dictated by: Dictated on workstation # [id number]
[2022-05-10] MEDS ORDERED: METO5TAB75 PO (15:26)
[2022-05-10 15:45] VITALS: BP 142/83
== END 2022-05-10 15:55 | disposition home or self-care (01) ==
LOC: EDUNIT# 09:56 → ER 09:57
DX: E11.43 Type 2 diabetes mellitus with diabetic autonomic (poly)neuropathy (principal); K31.84 Gastroparesis; R41.0 Disorientation, unspecified; Z90.49 Acquired absence of other specified parts of digestive tract; Z90.710 Acquired absence of both cervix and uterus; Z20.822 Contact with and (suspected) exposure to COVID-19
CPT/HCPCS: 70450; 71045; 74177; 80053; 80306; 81000; 82140; 83605; 83690; 85025; 85610; 85730; 86618; 86666 ×2; 86668; 86757 ×2; 87040; 87088; 87636; 99284; G0480; 36415; 80320

== ENCOUNTER → 2022-05-11 | Outpatient (CLI) | payer MEDICARE, OTHER ==
[~2022-05-11] MED LIST changes: +METO5TAB75 PO
[2022-05-11 15:39] LABS: FREE T4 (FREE THYROXINE) 1.09 NG/DL (0.70-1.48)
== END ==
LOC: LAB FS 10:00
PROVIDERS: ATTEND Registered Nurse Emergency
DX: R25.1 Tremor, unspecified (principal); R10.9 Unspecified abdominal pain; E11.9 Type 2 diabetes mellitus without complications; R50.9 Fever, unspecified; R41.3 Other amnesia
CPT/HCPCS: 36415; 84439; 84443

== ENCOUNTER 2022-05-13 21:38 | Emergency (ER) | payer MEDICARE, OTHER ==
[~2022-05-13] VITALS: Ht 162 cm; Wt 68.0 kg
[2022-05-13 21:56] VITALS: BP 173/74
[2022-05-13 22:12] LABS: BASOPHILS % (AUTO) 0 % (0-10); EOSINOPHILS # (AUTO) 0.2 10^3/uL (0.0-0.3); EOSINOPHILS % (AUTO) 2 % (0-10); HEMATOCRIT 33 % (35-52); HEMOGLOBIN 11.3 g/dL (11.5-16.0); LYMPHOCYTES # (AUTO) 2.2 X 10^3 (1.0-4.0); LYMPHOCYTES % (AUTO) 22 % (12-44); MEAN CORPUSCULAR HEMOGLOBIN 31 pg (25-34); MEAN CORPUSCULAR HGB CONC 34 g/dL (32-36); MEAN CORPUSCULAR VOLUME 90 fL (80-99); MEAN PLATELET VOLUME 9.6 fL (9.0-12.2); MONOCYTES # (AUTO) 0.7 X 10^3 (0.0-1.0); MONOCYTES % (AUTO) 7 % (0-12); NEUTROPHILS # (AUTO) 6.7 X 10^3 (1.8-7.8); NEUTROPHILS % (AUTO) 68 % (42-75); PLATELET COUNT 314 10^3/uL (130-400); WHITE BLOOD COUNT 9.8 10^3/uL (4.3-11.0)
[2022-05-13 22:17] LABS: CREATININE SERUM 1.28 MG/DL (0.60-1.30); POTASSIUM 3.9 MMOL/L (3.6-5.0)
[2022-05-13 22:18] LABS: ALBUMIN 4.2 GM/DL (3.2-4.5); BILIRUBIN,TOTAL 0.3 MG/DL (0.1-1.0); CALCIUM 8.6 MG/DL (8.5-10.1); TOTAL PROTEIN 7.2 GM/DL (6.4-8.2)
[2022-05-13] MEDS ORDERED: LORazepam INJ 2 MG/ML (ATIVAN) VIAL IVP ONE (22:30)
[2022-05-13] MEDS ORDERED: PROMETHAZINE INJ 25 MG/ML (PHENERGAN) AMP IVP ONE ×2 (22:30)
--- NOTE | 2022-05-13 22:37 | ED GI ---
General Chief Complaint: Abdominal/GI Problems Stated Complaint: NAUSEA Nursing Triage Note: pt presents with c/o nausea and bloating with abd pain. reports being seen 05/08, 05/10 and yesterday for the same issues. reports upcoming appointment with GI doc next week. reports she was ok today until she attempted to eat. Source of Information: Patient, Family Exam Limitations: No Limitations History of Present Illness Date Seen by Provider: May 13, 2022 Time Seen by Provider: 21:59 Initial Comments 72-year-old female patient with history of diabetes mellitus, hypertension, GERD, constipation presented POV with complaining of feeling sick and abdominal bloating. Patient states for the last 2 weeks she has had episodes of nausea without vomiting associated with abdominal bloating. Patient states she was seen several times in this emergency room, [facility], or later ER, and by her primary care physician for the same problem and has appointment with GI specialist in 4 days. Patient states she ate food tonight and after eating felt abdominal bloating and nausea and decided to come to ER. Patient denies chest pain, shortness of breath, fever and chills, urinary symptoms, diarrhea. Patient states she had a small amount of bowel movement yesterday and usually has constipation for the last 6 months. Allergies and Home Medications Allergies Coded Allergies: levofloxacin (Verified Adverse Reaction, Unknown, mental status change, 05/07/22) niacin (Verified Adverse Reaction, Unknown, flushing, 05/07/22) Patient Home Medication List Home Medication List Reviewed: Yes Fexofenadine HCl (Fexofenadine HCl) 180 Mg Tablet, 180 MG PO DAILY, (Reported) Entered as Reported by: JANEY ZAVALA on 08/28/201718 Hydrochlorothiazide (Hydrochlorothiazide) 12.5 Mg Tablet, 12.5 MG PO DAILY, (Reported) Entered as Reported by: JANEY ZAVALA on 08/28/201718 Hyoscyamine Sulfate (Levsin-Sl) 0.125 Mg Tab.subl, 0.25 MG SL Q4H Prescribed by: MARJ DAMON on 05/08/22 232 Insulin Glargine,Hum.rec.anlog (Lantus Solostar) 100 Unit/1 Ml Insuln.pen, 25 UNIT SC HS, (Reported) Entered as Reported by: JANEY ZAVALA on 08/28/201718 Losartan Potassium (Losartan Potassium) 100 Mg Tablet, 100 MG PO DAILY, (Reported) Entered as Reported by: JANEY ZAVALA on 08/28/201718 Metoclopramide HCl (Reglan) 5 Mg Tablet, 5 MG PO Q8H PRN for NAUSEA/VOMITING-2ND LINE Prescribed by: TOYA SALAZAR on 05/10/22 1526 Omeprazole (Omeprazole) 40 Mg Capsule.dr, 40 MG PO DAILY, (Reported) Entered as Reported by: JANEY ZAVALA on 08/28/201718 Ondansetron (Ondansetron Odt) 4 Mg Tab.rapdis, 4 MG PO Q6H PRN for NAUSEA/VOMITING Prescribed by: TOYA SALAZAR on 05/07/22 0600 Ondansetron (Ondansetron Odt) 8 Mg Tab.rapdis, 8 MG PO Q6H Prescribed by: MARJ DAMON on 05/08/22 232 Pantoprazole Sodium (Protonix) 40 Mg Tablet.dr, 40 MG PO DAILY Prescribed by: MARJ DAMON on 05/08/222322 Review of Systems Review of Systems Constitutional: no symptoms reported EENTM: No Symptoms Reported Respiratory: No Symptoms Reported Cardiovascular: No Symptoms Reported Gastrointestinal: See HPI Genitourinary: No Symptoms Reported Musculoskeletal: no symptoms reported Skin: no symptoms reported Psychiatric/Neurological: No Symptoms Reported Endocrine: No Symptoms Reported Hematologic/Lymphatic: No Symptoms Reported All Other Systems Reviewed Negative Unless Noted: Yes Past Sujgkpb-Rklkfc-Qvueks Hx Patient Social History Tobacco Use?: No Substance use?: No Alcohol Use?: No Immunizations Up To Date Tetanus Booster (TDap): More than 5yrs Influenza Vaccine Up-to-Date: Yes; Up-to-Date First/Initial COVID19 Vaccinat: unknown date Second COVID19 Vaccination Jaun: unknown date Third COVID19 Vaccination Date: 2021 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: [employer] Seasonal Allergies Seasonal Allergies: No Past Medical History Surgery/Hospitalization HX: HTN, HIGH CHOLESTEROL Surgeries: Yes (EAR DRUM REPLACEMENT, R AND L ROTATOR CUFF, RIGHT ANKLE) Ear Surgery, Gallbladder, Orthopedic Respiratory: No Cardiac: Yes High Cholesterol, Hypertension Neurological: No Reproductive Disorders: No HIV/AIDS: No Genitourinary: Yes Kidney Stones, UTI-Chronic Gastrointestinal: Yes Gastrointestinal Bleed, Ulcer Musculoskeletal: Yes Arthritis, Chronic Back Pain, Gout Endocrine: Yes Diabetes, Non-Insulin dep HEENT: No Loss of Vision: Bilateral Cancer: No Did You Recieve Any Treatments: No Psychosocial: Yes Anxiety, Depression Integumentary: No Blood Disorders: No Adverse Reaction/Blood Tranf: No Family Medical History No Pertinent Family Hx Physical Exam Vital Signs Vital Signs - First Documented 05/13/22 21:56 Temp 37.2 Pulse 96 Resp 20 B/P (MAP) 173/74 (107) Pulse Ox 96 O2 Delivery Room Air Capillary Refill : Height/Weight/BMI Height: 5'4.00" Weight: 150lbs. oz. [id number]; 25.00 BMI Method:Stated General Appearance: mild distress, other (Anxious) HEENT: PERRL/EOMI, normal ENT inspection Neck: non-tender Respiratory: chest non-tender, lungs clear, normal breath sounds Cardiovascular: normal peripheral pulses, regular rate, rhythm, systolic murmur Gastrointestinal: normal bowel sounds, non tender, soft, no organomegaly, no pulsatile mass, other (Mild abdominal distention without tenderness) Extremities: normal range of motion Back: normal inspection Neurologic/Psychiatric: no motor/sensory deficits, other (Anxious) Skin: normal color Progress/Results/Core Measures Results/Orders Lab Results Laboratory Tests Test 05/13/22 21:50 Range/Units White Blood Count 9.8 4.3-11.0 10^3/uL Red Blood Count 3.65 L 3.80-5.11 10^6/uL Hemoglobin 11.3 L 11.5-16.0 g/dL Hematocrit 33 L 35-52 % Mean Corpuscular Volume 90 80-99 fL Mean Corpuscular Hemoglobin 31 25-34 pg Mean Corpuscular Hemoglobin Concent 34 32-36 g/dL Red Cell Distribution Width 12.9 10.0-14.5 % Platelet Count 314 130-400 10^3/uL Mean Platelet Volume 9.6 9.0-12.2 fL Immature Granulocyte % (Auto) 1 % Neutrophils (%) (Auto) 68 42-75 % Lymphocytes (%) (Auto) 22 12-44 % Monocytes (%) (Auto) 7 0-12 % Eosinophils (%) (Auto) 2 0-10 % Basophils (%) (Auto) 0 0-10 % Neutrophils # (Auto) 6.7 1.8-7.8 X 10^3 Lymphocytes # (Auto) 2.2 1.0-4.0 X 10^3 Monocytes # (Auto) 0.7 0.0-1.0 X 10^3 Eosinophils # (Auto) 0.2 0.0-0.3 10^3/uL Basophils # (Auto) 0.0 0.0-0.1 10^3/uL Immature Granulocyte # (Auto) 0.1 0.0-0.1 10^3/uL Sodium Level 138 135-145 MMOL/L Potassium Level 3.9 3.6-5.0 MMOL/L Chloride Level 102 98-107 MMOL/L Carbon Dioxide Level 22 21-32 MMOL/L Anion Gap 14 5-14 MMOL/L Blood Urea Nitrogen 13 7-18 MG/DL Creatinine 1.28 0.60-1.30 MG/DL Estimat Glomerular Filtration Rate 44 BUN/Creatinine Ratio 10 Glucose Level 192 H 70-105 MG/DL Calcium Level 8.6 8.5-10.1 MG/DL Corrected Calcium 8.4 L 8.5-10.1 MG/DL Total Bilirubin 0.3 0.1-1.0 MG/DL Aspartate Amino Transf (AST/SGOT) 20 5-34 U/L Alanine Aminotransferase (ALT/SGPT) 17 0-55 U/L Alkaline Phosphatase 100 40-136 U/L Total Protein 7.2 6.4-8.2 GM/DL Albumin 4.2 3.2-4.5 GM/DL Lipase 45 8-78 U/L My Orders Orders - SIMON BABCOCK MD Cbc With Automated Diff (05/13/22 21:50) Comprehensive Metabolic Panel (05/13/22 21:50) Lipase (05/13/22 21:50) Lorazepam Injection (Ativan Injection) (05/13/22 22:30) Promethazine Injection (Phenergan Injec (05/13/22 22:30) Medications Given in ED Current Medications Medications Dose Ordered Sig/Cheryl Route Start Time Stop Time Status Last Admin Dose Admin Lorazepam 0.5 mg ONCE ONCE IVP 05/13/22 22:30 05/13/22 22:31 DC 05/13/22 22:26 0.5 MG Promethazine HCl 25 mg ONCE ONCE IVP 05/13/22 22:30 05/13/22 22:31 DC 05/13/22 22:26 25 MG Vital Signs/I&O 05/13/22 05/13/22 21:56 22:35 Temp 37.2 Pulse 96 100 Resp 20 18 B/P (MAP) 173/74 (107) 119/59 Pulse Ox 96 92 O2 Delivery Room Air Room Air Blood Pressure Mean: 107 Progress Progress Note : Progress Note Evaluation of patient in ER showed 72-year-old female patient with multiple emergency room visits in different hospital and primary care physician visit for the last 2 weeks for nausea and abdominal t. patient had several negative CT of abdomen and pelvis without pathology finding except for bilateral nephrolithiasis. Patient was very anxious and repeated "I am feeling". Patient had normal white blood cell with hemoglobin of 11.3 with mild drop of hemoglobin compared to previous labs that could be related to hydration. Patient also had elevation of creatinine and previous lab that became normal. Blood sugar was 92. Patient treated with Phenergan and Ativan and felt better and able to fall sleep. Patient advised to follow-up with her GI appointment in 4 days and continue home medication. Departure Impression Primary Impression: Gastroparesis due to DM Additional Impressions: Uncontrolled diabetes mellitus Qualified Codes: E11.65 - Type 2 diabetes mellitus with hyperglycemia Anemia Qualified Codes: D64.9 - Anemia, unspecified Nausea alone Anxiety about health Constipation Disposition: 01 HOME, SELF-CARE Condition: Improved Departure-Patient Inst. Decision time for Depature: 23:00 Referrals: LUPIS GOODEN APRN (PCP) Primary Care Physician SHANTELLE TEJEDA MD (Family) Primary Care Physician Patient Instructions: Constipation, Adult ED, Gastroparesis (Delayed Gastric Emptying) (DC) Add. Discharge Instructions: Continue home medication May take magnesium citrate or MiraLAX for constipation Follow-up with your GI appointment on next Sunday Return to ER as needed All discharge instructions reviewed with patient and/or family. Voiced understanding. SIMON BABCOCK MD May 13, 2022 22:37
== END 2022-05-13 23:16 | disposition home or self-care (01) ==
LOC: EDUNIT# 21:38 → ER FS 21:41
DX: E11.43 Type 2 diabetes mellitus with diabetic autonomic (poly)neuropathy (principal); E11.65 Type 2 diabetes mellitus with hyperglycemia; K31.84 Gastroparesis; D64.9 Anemia, unspecified; K59.00 Constipation, unspecified; F41.1 Generalized anxiety disorder; R94.4 Abnormal results of kidney function studies
CPT/HCPCS: 36415; 80053; 83690; 85025

== ENCOUNTER → 2022-05-16 | Outpatient (CLI) | payer MEDICARE, OTHER ==
--- NOTE | 2022-05-16 13:23 | Diagnostic Imaging Report ---
INDICATION: Epigastric pain and nausea. TECHNIQUE: 1 mCi Tc-99m sulfur colloid was utilized tagged with eggs. FINDINGS: Initial film shows good uptake in the stomach. Percentile emptying was a 1 hour 64%, 2 hours 91%, 3 hours 99%. Linear fit T-1/2 of 98 minutes. IMPRESSION: Normal gastric emptying study. Dictated by: Dictated on workstation # [id number]
== END ==
LOC: CARD 07:00
PROVIDERS: ATTEND Registered Nurse Emergency
DX: E11.43 Type 2 diabetes mellitus with diabetic autonomic (poly)neuropathy (principal); R10.13 Epigastric pain; R11.0 Nausea
CPT/HCPCS: 78264; A9541

== ENCOUNTER → 2022-05-18 | Outpatient (CLI) | payer MEDICARE, OTHER | LOC: CARD 14:41 | PROVIDERS: ATTEND Registered Nurse Emergency | DX: I51.7 Cardiomegaly (principal); I34.8 Other nonrheumatic mitral valve disorders | CPT/HCPCS: 93306 ==

== ENCOUNTER → 2022-05-23 | Outpatient (CLI) | payer MEDICARE, OTHER ==
[2022-05-23 10:24] LABS: WHITE BLOOD COUNT 8.5 10^3/uL (4.3-11.0)
[2022-05-23 10:25] LABS: BASOPHILS % (AUTO) 1 % (0-10); EOSINOPHILS % (AUTO) 2 % (0-10); HEMATOCRIT 39 % (35-52); HEMOGLOBIN 13.1 g/dL (11.5-16.0); LYMPHOCYTES % (AUTO) 21 % (12-44); MEAN CORPUSCULAR HEMOGLOBIN 31 pg (25-34); MEAN CORPUSCULAR HGB CONC 33 g/dL (32-36); MEAN CORPUSCULAR VOLUME 92 fL (80-99); MEAN PLATELET VOLUME 10.1 fL (9.0-12.2); MONOCYTES % (AUTO) 7 % (0-12); NEUTROPHILS % (AUTO) 69 % (42-75); PLATELET COUNT 269 10^3/uL (130-400)
[2022-05-23 10:26] LABS: BASOPHILS # (AUTO) 0.1 10^3/uL (0.0-0.1); EOSINOPHILS # (AUTO) 0.1 10^3/uL (0.0-0.3); LYMPHOCYTES # (AUTO) 1.8 X 10^3 (1.0-4.0); MONOCYTES # (AUTO) 0.6 X 10^3 (0.0-1.0); NEUTROPHILS # (AUTO) 5.9 X 10^3 (1.8-7.8)
[2022-05-23 10:31] LABS: ALBUMIN 4.1 GM/DL (3.2-4.5); BILIRUBIN,TOTAL 0.4 MG/DL (0.1-1.0); CALCIUM 9.8 MG/DL (8.5-10.1); CREATININE SERUM 1.21 MG/DL (0.60-1.30); TOTAL PROTEIN 7.5 GM/DL (6.4-8.2)
== END ==
LOC: LAB FS 09:20
PROVIDERS: ATTEND Registered Nurse Emergency
DX: I10 Essential (primary) hypertension (principal); R10.9 Unspecified abdominal pain; R79.89 Other specified abnormal findings of blood chemistry; R41.3 Other amnesia
CPT/HCPCS: 36415; 80053; 82607; 83690; 85025

== ENCOUNTER 2022-05-30 18:55 | Emergency (ER) | payer MEDICARE, OTHER ==
[2022-05-30 19:46] VITALS: BP 206/96
[2022-05-30] MEDS ORDERED: NS IV 1000 ML 1,000 ML IV SCH (20:00)
[2022-05-30] MEDS ORDERED: METOCLOPRAMIDE INJ 10 MG/2 ML (REGLAN) IVP STA (20:25)
[2022-05-30 20:27] LABS: ALBUMIN 3.9 GM/DL (3.2-4.5); CHLORIDE 104 MMOL/L (98-107); POTASSIUM 4.9 MMOL/L (3.6-5.0); SODIUM 139 MMOL/L (135-145)
[2022-05-30 20:29] LABS: AMYLASE 58 U/L (25-125); CALCIUM 9.6 MG/DL (8.5-10.1)
[2022-05-30 20:30] LABS: GLUCOSE 166 MG/DL (70-105); TOTAL PROTEIN 7.4 GM/DL (6.4-8.2)
[2022-05-30 20:31] LABS: CARBON DIOXIDE 22 MMOL/L (21-32)
[2022-05-30 20:32] LABS: BILIRUBIN,TOTAL 0.5 MG/DL (0.1-1.0)
[2022-05-30 20:34] LABS: ALKALINE PHOSPHATASE 105 U/L (40-136); CREATININE SERUM 1.65 MG/DL (0.60-1.30); GFR ESTIMATED 32
[2022-05-30 20:35] LABS: BUN/CREATININE RATIO 11
[2022-05-30 20:36] LABS: MAGNESIUM 1.8 MG/DL (1.6-2.4)
[2022-05-30 20:37] LABS: ALANINE AMINOTRANSFERASE 26 U/L (0-55)
[2022-05-30 20:38] LABS: LIPASE 35 U/L (8-78)
[2022-05-30 20:48] LABS: BILIRUBIN,URINE NEGATIVE (NEGATIVE); CLARITY,URINE CLEAR; COLOR,URINE YELLOW; GLUCOSE, URINE (UA) NEGATIVE (NEGATIVE); KETONES,URINE NEGATIVE (NEGATIVE); LEUKOCYTE ESTERASE ,URINE NEGATIVE (NEGATIVE); NITRITE,URINE NEGATIVE (NEGATIVE); PH,URINE 7.5 (5-9); PROTEIN,URINE 1+ (NEGATIVE)
[2022-05-30 20:55] LABS: BACTERIA,URINE NEGATIVE /HPF; HYALINE CASTS, URINE 0-2 /LPF; SQUAMOUS EPITHELIAL CELL,UR 0-2 /HPF; WBC,URINE 0-2 /HPF
[2022-05-30 21:03] LABS: AMPHETAMINE SCREEN, URINE NEGATIVE (NEGATIVE); BARBITURATE SCREEN URINE NEGATIVE (NEGATIVE); BENZODIAZEPINES SCREEN URINE NEGATIVE (NEGATIVE); CANNABINOID SCREEN, URINE NEGATIVE (NEGATIVE); COCAINE SCREEN URINE NEGATIVE (NEGATIVE); METHADONE STAT NEGATIVE (NEGATIVE); OPIATE SCREEN URINE NEGATIVE (NEGATIVE); OXYCODONE STAT NEGATIVE (NEGATIVE); PROPOXYPHENE STAT NEGATIVE (NEGATIVE); TRICYCLIC ANTIDEPRESSANTS SCRE NEGATIVE (NEGATIVE)
--- NOTE | 2022-05-30 21:09 | Diagnostic Imaging Report ---
Patient History: Chest and abdominal pain.. Technique: 4 views of the chest, abdomen and pelvis were obtained. Comparison: 05/08/2022. FINDINGS: The lung volumes are normal. No focal consolidation is seen. No large pleural effusion or pneumothorax is seen. The cardiomediastinal silhouette is normal in size and contour. No acute osseous abnormality is seen. No evidence of small bowel obstruction. No large collections of free intraperitoneal air. Small volume of stool is seen in the colon. Scattered phleboliths are seen in the pelvis. The gallbladder is surgically absent. IMPRESSION: 1. No acute process in the chest. 2. No evidence of bowel obstruction or large collections of free intraperitoneal air. Dictated by: Dictated on workstation # [id number]
--- NOTE | 2022-05-30 21:52 | ED GI ---
General Chief Complaint: Abdominal/GI Problems Stated Complaint: ABD PAIN Nursing Triage Note: PT PRESENTS WITH C/O ABD PAIN, ALL OVER. REPORTS NAUSEA BUT DENIES VOMITING. REPORTS CONSTIPATION AND IS UNABLE TO GIVE DATE OF LBM. REPORTS THIS IS THE PTS 7-10TH TRIP TO THE ER IN THE LAST 6 WEEKS FOR THIS SAME ISSUE. REPORTS PT HAS BEEN SEEN BY A GI SPECIALIST ALSO WITHIN IN THE LAST COUPLE OF WEEKS. PT ON HOME MEDICATION FOR CONSTIATION TAKING MIRALAX ONCE DAILY. Source of Information: Patient, Old Records History of Present Illness Date Seen by Provider: May 30, 2022 Allergies and Home Medications Allergies Coded Allergies: levofloxacin (Verified Adverse Reaction, Unknown, mental status change, 05/07/22) niacin (Verified Adverse Reaction, Unknown, flushing, 05/07/22) Patient Home Medication List Fexofenadine HCl (Fexofenadine HCl) 180 Mg Tablet, 180 MG PO DAILY, (Reported) Entered as Reported by: JANEY ZAVALA on 08/28/201718 Hydrochlorothiazide (Hydrochlorothiazide) 12.5 Mg Tablet, 12.5 MG PO DAILY, (Reported) Entered as Reported by: JANEY ZAVALA on 08/28/201718 Hyoscyamine Sulfate (Levsin-Sl) 0.125 Mg Tab.subl, 0.25 MG SL Q4H Prescribed by: MARJ DAMON on 05/08/222322 Insulin Glargine,Hum.rec.anlog (Lantus Solostar) 100 Unit/1 Ml Insuln.pen, 25 UNIT SC HS, (Reported) Entered as Reported by: JANEY ZAVALA on 08/28/201718 Losartan Potassium (Losartan Potassium) 100 Mg Tablet, 100 MG PO DAILY, (Reported) Entered as Reported by: JANEY ZAVALA on 08/28/201718 Metoclopramide HCl (Reglan) 5 Mg Tablet, 5 MG PO Q8H PRN for NAUSEA/VOMITING-2ND LINE Prescribed by: TOYA SALAZAR on 05/10/22 152 Omeprazole (Omeprazole) 40 Mg Capsule.dr, 40 MG PO DAILY, (Reported) Entered as Reported by: JANEY ZAVALA on 08/28/201718 Ondansetron (Ondansetron Odt) 4 Mg Tab.rapdis, 4 MG PO Q6H PRN for NAUSEA/VOMI TING Prescribed by: TOYA SALAZAR on 05/07/22 0600 Ondansetron (Ondansetron Odt) 8 Mg Tab.rapdis, 8 MG PO Q6H Prescribed by: MARJ DAMON on 05/08/222322 Pantoprazole Sodium (Protonix) 40 Mg Tablet.dr, 40 MG PO DAILY Prescribed by: MARJ DAMON on 05/08/222322 Past Csxwmda-Mkfmlc-Mhyjya Hx Patient Social History Tobacco Use?: No Substance use?: No Alcohol Use?: No Immunizations Up To Date Tetanus Booster (TDap): More than 5yrs Influenza Vaccine Up-to-Date: Yes; Up-to-Date First/Initial COVID19 Vaccinat: UNKNOWN DATE Second COVID19 Vaccination Jaun: unknown date Third COVID19 Vaccination Date: 2021 Seasonal Allergies Seasonal Allergies: No Past Medical History Surgery/Hospitalization HX: HTN, HIGH CHOLESTEROL Surgeries: Yes (EAR DRUM REPLACEMENT, R AND L ROTATOR CUFF, RIGHT ANKLE) Ear Surgery, Gallbladder, Orthopedic Respiratory: No Cardiac: Yes High Cholesterol, Hypertension Neurological: No Reproductive Disorders: No HIV/AIDS: No Genitourinary: Yes Kidney Stones, UTI-Chronic Gastrointestinal: Yes Gastrointestinal Bleed, Ulcer Musculoskeletal: Yes Arthritis, Chronic Back Pain, Gout Endocrine: Yes Diabetes, Non-Insulin dep HEENT: No Loss of Vision: Bilateral Cancer: No Did You Recieve Any Treatments: No Psychosocial: Yes Anxiety, Depression Integumentary: No Blood Disorders: No Adverse Reaction/Blood Tranf: No Family Medical History No Pertinent Family Hx Physical Exam Vital Signs Vital Signs - First Documented 05/30/22 05/30/22 19:46 19:53 Temp 36.8 Pulse 91 Resp 20 B/P (MAP) 206/96 (132) Pulse Ox 96 O2 Delivery Room Air Capillary Refill : Height/Weight/BMI Height: 5'4.00" Weight: 150lbs. oz. 68.099696ny; 25.00 BMI Method:Stated Progress/Results/Core Measures Results/Orders Lab Results Laboratory Tests Test 05/30/22 19:59 05/30/22 20:10 05/30/22 20:41 05/30/22 21:40 Range/Units Glucometer 167 H 70-110 MG/DL Sodium Level 139 135-145 MMOL/L Potassium Level 4.9 3.6-5.0 MMOL/L Chloride Level 104 98-107 MMOL/L Carbon Dioxide Level 22 21-32 MMOL/L Anion Gap 13 5-14 MMOL/L Blood Urea Nitrogen 18 7-18 MG/DL Creatinine 1.65 H 0.60-1.30 MG/DL Estimat Glomerular Filtration Rate 32 BUN/Creatinine Ratio 11 Glucose Level 166 H 70-105 MG/DL Calcium Level 9.6 8.5-10.1 MG/DL Corrected Calcium 9.7 8.5-10.1 MG/DL Magnesium Level 1.8 1.6-2.4 MG/DL Total Bilirubin 0.5 0.1-1.0 MG/DL Aspartate Amino Transf (AST/SGOT) 38 H 5-34 U/L Alanine Aminotransferase (ALT/SGPT) 26 0-55 U/L Alkaline Phosphatase 105 40-136 U/L Total Protein 7.4 6.4-8.2 GM/DL Albumin 3.9 3.2-4.5 GM/DL Amylase Level 58 25-125 U/L Lipase 35 8-78 U/L Serum Alcohol < 10 <10 MG/DL Urine Color YELLOW Urine Clarity CLEAR Urine pH 7.5 5-9 Urine Specific [place] 1.020 1.016-1.022 Urine Protein 1+ H NEGATIVE Urine Glucose (UA) NEGATIVE NEGATIVE Urine Ketones NEGATIVE NEGATIVE Urine Nitrite NEGATIVE NEGATIVE Urine Bilirubin NEGATIVE NEGATIVE Urine Urobilinogen 0.2 < = 1.0 MG/DL Urine Leukocyte Esterase NEGATIVE NEGATIVE Urine RBC (Auto) NEGATIVE NEGATIVE Urine RBC NONE /HPF Urine WBC 0-2 /HPF Urine Squamous Epithelial Cells 0-2 /HPF Urine Crystals NONE /LPF Urine Bacteria NEGATIVE /HPF Urine Casts PRESENT /LPF Urine Hyaline Casts 0-2 H /LPF Urine Mucus NEGATIVE /LPF Urine Culture Indicated NO Urine Opiates Screen NEGATIVE NEGATIVE Urine Oxycodone Screen NEGATIVE NEGATIVE Urine Methadone Screen NEGATIVE NEGATIVE Urine Propoxyphene Screen NEGATIVE NEGATIVE Urine Barbiturates Screen NEGATIVE NEGATIVE Ur Tricyclic Antidepressants Screen NEGATIVE NEGATIVE Urine Phencyclidine Screen NEGATIVE NEGATIVE Urine Amphetamines Screen NEGATIVE NEGATIVE Urine Methamphetamines Screen NEGATIVE NEGATIVE Urine Benzodiazepines Screen NEGATIVE NEGATIVE Urine Cocaine Screen NEGATIVE NEGATIVE Urine Cannabinoids Screen NEGATIVE NEGATIVE My Orders Orders - MARJ DAMON DO Accucheck Stat ONCE (05/30/22 19:50) Ed Iv/Invasive Line Start (05/30/22 19:50) Alcohol (05/30/22 19:50) Amylase (05/30/22 19:50) Cbc With Automated Diff (05/30/22 19:50) Comprehensive Metabolic Panel (05/30/22 19:50) Drug Screen Stat (Urine) (05/30/22 19:50) Lipase (05/30/22 19:50) Magnesium (05/30/22 19:50) Ua Culture If Indicated (05/30/22 19:50) Ed Iv/Invasive Line Start (05/30/22 19:50) Ns Iv 1000 Ml (Sodium Chloride 0.9%) (05/30/22 20:00) Acute Abd Series (05/30/22 20:25) Metoclopramide Injection (Reglan Injecti (05/30/22 20:25) Vital Signs/I&O 05/30/22 05/30/22 19:46 19:53 Temp 36.8 Pulse 91 87 Resp 20 20 B/P (MAP) 206/96 (132) 177/79 Pulse Ox 96 96 O2 Delivery Room Air Blood Pressure Mean: 111 FSBG Bedside Testing Finger Stick Blood Glucose: 167 Blood Glucose Action Taken: RN NOTIFIED Departure Impression Primary Impression: Chronic abdominal pain Additional Impressions: Chronic nausea Chronic constipation IDDM (insulin dependent diabetes mellitus) POSSIBLE DIABETIC GASTROPARESIS Disposition: 01 HOME, SELF-CARE Condition: Stable Departure-Patient Inst. Decision time for Depature: 21:57 Referrals: LUPIS GOODEN APRN (PCP) Primary Care Physician SHANTELLE TEJEDA MD (Family) Primary Care Physician Patient Instructions: Abdominal Pain, Adult ED, Constipation in Adults, Gastroparesis (Delayed Gastric Emptying) (DC), Nausea and Vomiting, Adult ED Add. Discharge Instructions: CONTINUE YOUR MIRALAX DAILY CONTINUE YOUR MEDICATIONS PRESCRIBED FOLLOW UP WITH YOUR DR THIS WEEK FOR FURTHER CARE. All discharge instructions reviewed with patient and/or family. Voiced understanding. Scripts Ondansetron (Ondansetron Odt) 8 Mg Tab.rapdis 8 MG PO Q6H, #10 TAB Prov: NELSON,MARJ K DO 05/30/22 Metoclopramide HCl (Reglan) 10 Mg Tablet 10 MG PO Q6H for Nausea/Vomiting, #10 TAB Prov: NELSON,MARJ K DO 05/30/22 MARJ DAMON DO May 30, 2022 21:52
[2022-05-30 21:57] LABS: BASOPHILS % (AUTO) 1 % (0-10); EOSINOPHILS # (AUTO) 0.1 10^3/uL (0.0-0.3); EOSINOPHILS % (AUTO) 2 % (0-10); HEMATOCRIT 36 % (35-52); HEMOGLOBIN 11.7 g/dL (11.5-16.0); LYMPHOCYTES # (AUTO) 1.7 10^3/uL (1.0-4.0); LYMPHOCYTES % (AUTO) 23 % (12-44); MEAN CORPUSCULAR HEMOGLOBIN 30 pg (25-34); MEAN CORPUSCULAR HGB CONC 32 g/dL (32-36); MEAN CORPUSCULAR VOLUME 94 fL (80-99); MEAN PLATELET VOLUME 9.7 fL (9.0-12.2); MONOCYTES # (AUTO) 0.6 10^3/uL (0.0-1.0); MONOCYTES % (AUTO) 8 % (0-12); NEUTROPHILS % (AUTO) 67 % (42-75); PLATELET COUNT 265 10^3/uL (130-400); WHITE BLOOD COUNT 7.5 10^3/uL (4.3-11.0)
[2022-05-30] MEDS ORDERED: METO-310 PO (21:59)
[2022-05-30] MEDS ORDERED: ONDA8TAB13 PO (21:59)
== END 2022-05-30 22:06 | disposition home or self-care (01) ==
LOC: EDUNIT# 18:55 → ER 18:57
DX: K59.09 Other constipation (principal); E11.9 Type 2 diabetes mellitus without complications; Z79.4 Long term (current) use of insulin
CPT/HCPCS: 74022; 80053; 80306; 81000; 82150; 82947; 83690; 83735; 85025; 99284; G0480; 36415; 80320

== ENCOUNTER 2022-06-10 15:07 | Emergency (ER) | payer MEDICARE, OTHER ==
[~2022-06-10] VITALS: Ht 162 cm; Wt 66.0 kg
[~2022-06-10 15:07] MED LIST changes: +METO-310 PO
[2022-06-10 16:00] LABS: BILIRUBIN,URINE NEGATIVE (NEGATIVE); CLARITY,URINE CLEAR; COLOR,URINE YELLOW; GLUCOSE, URINE (UA) NEGATIVE (NEGATIVE); KETONES,URINE NEGATIVE (NEGATIVE); LEUKOCYTE ESTERASE ,URINE NEGATIVE (NEGATIVE); NITRITE,URINE NEGATIVE (NEGATIVE); PH,URINE 6.5 (5-9); PROTEIN,URINE 1+ (NEGATIVE)
[2022-06-10 16:08] LABS: BACTERIA,URINE NEGATIVE /HPF; SQUAMOUS EPITHELIAL CELL,UR RARE /HPF
[2022-06-10] MEDS ORDERED: METOCLOPRAMIDE INJ 10 MG/2 ML (REGLAN) IVP ONE (17:00)
[2022-06-10] MEDS ORDERED: fentaNYL INJ 100 MCG/2 ML AMP IVP ONE ×2 (17:00→19:15)
[2022-06-10 17:14] LABS: BASOPHILS % (AUTO) 0 % (0-10); EOSINOPHILS # (AUTO) 0.1 10^3/uL (0.0-0.3); EOSINOPHILS % (AUTO) 1 % (0-10); HEMATOCRIT 36 % (35-52); HEMOGLOBIN 12.3 g/dL (11.5-16.0); LYMPHOCYTES # (AUTO) 1.6 10^3/uL (1.0-4.0); LYMPHOCYTES % (AUTO) 21 % (12-44); MEAN CORPUSCULAR HEMOGLOBIN 31 pg (25-34); MEAN CORPUSCULAR HGB CONC 34 g/dL (32-36); MEAN CORPUSCULAR VOLUME 91 fL (80-99); MEAN PLATELET VOLUME 9.6 fL (9.0-12.2); MONOCYTES # (AUTO) 0.6 10^3/uL (0.0-1.0); MONOCYTES % (AUTO) 8 % (0-12); NEUTROPHILS # (AUTO) 5.5 10^3/uL (1.8-7.8); NEUTROPHILS % (AUTO) 70 % (42-75); PLATELET COUNT 273 10^3/uL (130-400); WHITE BLOOD COUNT 7.9 10^3/uL (4.3-11.0)
[2022-06-10 17:24] LABS: ALBUMIN 4.1 GM/DL (3.2-4.5)
[2022-06-10 17:25] LABS: CALCIUM 9.3 MG/DL (8.5-10.1)
[2022-06-10 17:27] LABS: TOTAL PROTEIN 7.1 GM/DL (6.4-8.2)
[2022-06-10 17:28] LABS: BILIRUBIN,TOTAL 0.5 MG/DL (0.1-1.0)
[2022-06-10 17:30] LABS: CREATININE SERUM 1.47 MG/DL (0.60-1.30)
--- NOTE | 2022-06-10 18:57 | ED Abdominal Pain ---
General Chief Complaint: Abdominal/GI Problems Stated Complaint: CONSTIPATION,NAUSEA,BACK PAIN Nursing Triage Note: PT AMB TO ED BY POV WITH C/O CHRONIC ABD PAIN AND NAUSEA. PT HAS BEEN SEEN MULTIPLE TIMES FOR THE SAME ISSUE, NO CHANGE IN SX. PT IS NAUSOUS, BUT HAS NOT VOMITED. REPORTS PT SAW MISA OLIVEIRA ON 05/17, BUT COULDN'T REMEMBER RESULTS FROM VISIT. PT WAS SEEN FOR SAME ISSUE AT ED ON 06/01 AND WAS PRESCRIBED OMEPRAZOLE TO TAKE WITH THE PROTONIX SHE WAS ALREADY PRESCRIBED. REPORTS THEY WERE TOLD BY A DOCTOR IN [facility] THAT IT IS VERY DANGEROUS TO TAKE THEM TOGETHER SO THEY STOPPED THE PROTONIX ON 06/08. Source of Information: Patient, Family () Exam Limitations: No Limitations History of Present Illness Date Seen by Provider: Jun 10, 2022 Time Seen by Provider: 18:34 Initial Comments Patient had been in the department approximately 3 hours prior to shift change. I came in at 6 PM and saw her at 634PM Patient is a 72-year-old female who presents to the emergency department today with abdominal pain and nausea, poor appetite. Patient has been to the emergency room multiple times for similar complaints over the last 3 months. She has been on multiple different medications according to her and had GI evaluation. She has had visits to and medication management. Her GI doctor is there. She has had upper endoscopy and colonoscopy. She has been taking Tylenol as well as ibuprofen for pain. Her reports that she was given several samples of Linzess but ran out of these and no actual prescription was written. He states over the last week or so since she is run out she has had recurrence of her abdominal pain. It is primarily on the right side of her abdomen although it does tend to spread across the rest of her belly. She has issues with chronic constipation. No black or bloody stools. No fevers or chills. No actual vomiting. Her also reports that in the last 3 weeks specifically she has had significant decline in her mental capacity. She is more confused, has numbness and tingling in her extremities, a difficult time remembering things. He believes her primary care doctor has checked her thyroid. She has had about a 20 pound weight loss in recent weeks that is unintentional. She has had a total hysterectomy with oophorectomy. She is a non-smoker, nondri nker. No illicit drugs. She is scheduled for a follow-up appointment with her GI doctor this Sunday. HPI and review of systems primarily obtained from the due to the patient's poor memory. Timing/Duration: Other (6 weeks worse in the last week/several days) Severity/Quality: Moderate, Aching Location: RUQ, RLQ Radiation: No Radiation, Other (across abdomen) Associated Symptoms: Nausea/Vomiting, Weakness (confusion/poor memory), Other (constipation) Allergies and Home Medications Allergies Coded Allergies: levofloxacin (Verified Adverse Reaction, Unknown, mental status change, 05/07/22) niacin (Verified Adverse Reaction, Unknown, flushing, 05/07/22) Patient Home Medication List Home Medication List Reviewed: Yes Fexofenadine HCl (Fexofenadine HCl) 180 Mg Tablet, 180 MG PO DAILY, (Reported) Entered as Reported by: JANEY ZAVALA on 08/28/201718 Hydrochlorothiazide (Hydrochlorothiazide) 12.5 Mg Tablet, 12.5 MG PO DAILY, (Reported) Entered as Reported by: JANEY ZAVALA on 08/28/201718 Hydrocodone/Acetaminophen (Hydrocodone-Acetamin 5-325 mg) 5 Mg-325 Mg Tablet, 1 TAB PO Q6H PRN for PAIN-MODERATE (5-7) Prescribed by: DAVEY MARTINS on 06/10/221911 Hyoscyamine Sulfate (Levsin-Sl) 0.125 Mg Tab.subl, 0.25 MG SL Q4H Prescribed by: MARJ DAMON on 05/08/222322 Insulin Glargine,Hum.rec.anlog (Lantus Solostar) 100 Unit/1 Ml Insuln.pen, 25 UNIT SC HS, (Reported) Entered as Reported by: JANEY ZAVALA on 08/28/201718 Linaclotide (Linzess) 145 Mcg Capsule, 145 MCG PO DAILY Prescribed by: DAVEY MARTINS on 06/10/221911 Losartan Potassium (Losartan Potassium) 100 Mg Tablet, 100 MG PO DAILY, (Reported) Entered as Reported by: JANEY ZAVALA on 08/28/201718 Metoclopramide HCl (Reglan) 5 Mg Tablet, 5 MG PO Q8H PRN for NAUSEA/VOMITING-2ND LINE Prescribed by: TOYA SALAZAR on 05/10/22 1526 Metoclopramide HCl (Reglan) 10 Mg Tablet, 10 MG PO Q6H Prescribed by: MARJ DAMON on 05/30/222158 Omeprazole (Omeprazole) 40 Mg Capsule.dr, 40 MG PO DAILY, (Reported) Entered as Reported by: JANEY ZAVALA on 08/28/20 1719 Ondansetron (Ondansetron Odt) 4 Mg Tab.rapdis, 4 MG PO Q6H PRN for NA USEA/VOMITING Prescribed by: TOYA SALAZAR on 05/07/22 0600 Ondansetron (Ondansetron Odt) 8 Mg Tab.rapdis, 8 MG PO Q6H Prescribed by: MARJ DAMON on 05/08/222322 Ondansetron (Ondansetron Odt) 8 Mg Tab.rapdis, 8 MG PO Q6H Prescribed by: MARJ DAMON on 05/30/222158 Pantoprazole Sodium (Protonix) 40 Mg Tablet.dr, 40 MG PO DAILY Prescribed by: MARJ DAMON on 05/08/222322 Review of Systems Review of Systems Constitutional: see HPI EENTM: No Symptoms Reported Respiratory: No Symptoms Reported Cardiovascular: No Symptoms Reported Gastrointestinal: Abdominal Pain, Nausea, Poor Appetite (20# weight loss in the last 6 weeks or less) Genitourinary: No Symptoms Reported Musculoskeletal: no symptoms reported Skin: no symptoms reported Psychiatric/Neurological: Other (significant change in memory in the last 3 weeks) Endocrine: Other (always "cold") All Other Systems Reviewed Negative Unless Noted: Yes Past Cpjlayo-Oqvjdn-Zmypjh Hx Patient Social History Tobacco Use?: No Use of E-Cig and/or Vaping dev: No Substance use?: No Alcohol Use?: No Pt feels they are or have been: No Immunizations Up To Date Tetanus Booster (TDap): More than 5yrs Influenza Vaccine Up-to-Date: No; Not Current First/Initial COVID19 Vaccinat: UNKNOWN DATE Second COVID19 Vaccination Jaun: UNKNOWN DATE Third COVID19 Vaccination Date: UNKNOWN DATE Seasonal Allergies Seasonal Allergies: No Past Medical History Surgery/Hospitalization HX: HTN, HIGH CHOLESTEROL Surgeries: Yes (EAR DRUM REPLACEMENT, R AND L ROTATOR CUFF, RIGHT ANKLE) Ear Surgery, Gallbladder, Orthopedic Respiratory: No Cardiac: Yes High Cholesterol, Hypertension Neurological: No Reproductive Disorders: No HIV/AIDS: No Genitourinary: Yes Kidney Stones, UTI-Chronic Gastrointestinal: Yes Gastrointestinal Bleed, Ulcer Musculoskeletal: Yes Arthritis, Chronic Back Pain, Gout Endocrine: Yes Diabetes, Non-Insulin dep HEENT: No Loss of Vision: Bilateral Cancer: No Did You Recieve Any Treatments: No Psychosocial: Yes Anxiety, Depression Integumentary: No Blood Disorders: No Adverse Reaction/Blood Tranf: No Family Medical History No Pertinent Family Hx Physical Exam Vital Signs Vital Signs - First Documented 06/10/22 15:45 Temp 36.7 Pulse 79 Resp 14 B/P (MAP) 187/87 (120) Pulse Ox 97 O2 Delivery Room Air Capillary Refill : Less Than 3 Seconds Height/Weight/BMI Height: 5'4.00" Weight: 150lbs. oz. 68.711167jd; 25.00 BMI Method:Stated General Appearance: WD/WN, no apparent distress HEENT: PERRL/EOMI Neck: full range of motion Respiratory: lungs clear, normal breath sounds, no respiratory distress, no accessory muscle use Cardiovascular: regular rate, rhythm, systolic murmur (harsh/coarse systolic murmur LUSB - but also auscultated across the precordium) Gastrointestinal: normal bowel sounds, soft, tenderness (Right flank) Neurologic/Psychiatric: alert, normal mood/affect, oriented x 3 Skin: normal color, warm/dry Progress/Results/Core Measures Results/Orders Lab Results Laboratory Tests Test 06/10/22 15:45 06/10/22 17:05 Range/Units Urine Color YELLOW Urine Clarity CLEAR Urine pH 6.5 5-9 Urine Specific [place] 1.010 L 1.016-1.022 Urine Protein 1+ H NEGATIVE Urine Glucose (UA) NEGATIVE NEGATIVE Urine Ketones NEGATIVE NEGATIVE Urine Nitrite NEGATIVE NEGATIVE Urine Bilirubin NEGATIVE NEGATIVE Urine Urobilinogen 0.2 < = 1.0 MG/DL Urine Leukocyte Esterase NEGATIVE NEGATIVE Urine RBC (Auto) NEGATIVE NEGATIVE Urine RBC NONE /HPF Urine WBC NONE /HPF Urine Squamous Epithelial Cells RARE /HPF Urine Crystals NONE /LPF Urine Bacteria NEGATIVE /HPF Urine Casts NONE /LPF Urine Mucus NEGATIVE /LPF Urine Culture Indicated NO Urine Random Creatinine 57 30-125 MG/DL White Blood Count 7.9 4.3-11.0 10^3/uL Red Blood Count 4.01 3.80-5.11 10^6/uL Hemoglobin 12.3 11.5-16.0 g/dL Hematocrit 36 35-52 % Mean Corpuscular Volume 91 80-99 fL Mean Corpuscular Hemoglobin 31 25-34 pg Mean Corpuscular Hemoglobin Concent 34 32-36 g/dL Red Cell Distribution Width 11.9 10.0-14.5 % Platelet Count 273 130-400 10^3/uL Mean Platelet Volume 9.6 9.0-12.2 fL Immature Granulocyte % (Auto) 0 % Neutrophils (%) (Auto) 70 42-75 % Lymphocytes (%) (Auto) 21 12-44 % Monocytes (%) (Auto) 8 0-12 % Eosinophils (%) (Auto) 1 0-10 % Basophils (%) (Auto) 0 0-10 % Neutrophils # (Auto) 5.5 1.8-7.8 10^3/uL Lymphocytes # (Auto) 1.6 1.0-4.0 10^3/uL Monocytes # (Auto) 0.6 0.0-1.0 10^3/uL Eosinophils # (Auto) 0.1 0.0-0.3 10^3/uL Basophils # (Auto) 0.0 0.0-0.1 10^3/uL Immature Granulocyte # (Auto) 0.0 0.0-0.1 10^3/uL Sodium Level 141 135-145 MMOL/L Potassium Level 4.0 3.6-5.0 MMOL/L Chloride Level 105 98-107 MMOL/L Carbon Dioxide Level 21 21-32 MMOL/L Anion Gap 15 H 5-14 MMOL/L Blood Urea Nitrogen 13 7-18 MG/DL Creatinine 1.47 H 0.60-1.30 MG/DL Estimat Glomerular Filtration Rate 37 BUN/Creatinine Ratio 9 Glucose Level 133 H 70-105 MG/DL Calcium Level 9.3 8.5-10.1 MG/DL Corrected Calcium 9.2 8.5-10.1 MG/DL Total Bilirubin 0.5 0.1-1.0 MG/DL Aspartate Amino Transf (AST/SGOT) 21 5-34 U/L Alanine Aminotransferase (ALT/SGPT) 20 0-55 U/L Alkaline Phosphatase 87 40-136 U/L C-Reactive Protein High Sensitivity 0.87 H 0.00-0.50 MG/DL Total Protein 7.1 6.4-8.2 GM/DL Albumin 4.1 3.2-4.5 GM/DL Lipase 39 8-78 U/L My Orders Orders - DAVEY MARTINS MD Porphyrins Random Urine (06/10/22 19:04) Creatinine,Urine Random (06/10/22 19:04) Fentanyl Inj (Sublimaze Injection) (06/10/22 19:15) Simethicone Tablet (Mylicon Chewable Tab (06/10/22 19:15) Medications Given in ED Current Medications Medications Dose Ordered Sig/Cheryl Route Start Time Stop Time Status Last Admin Dose Admin Fentanyl Citrate 50 mcg ONCE ONCE IVP 06/10/22 17:00 06/10/22 17:01 DC 06/10/22 17:14 50 MCG Fentanyl Citrate 50 mcg ONCE ONCE IVP 06/10/22 19:15 06/10/22 19:16 DC 06/10/22 19:30 50 MCG Metoclopramide HCl 5 mg ONCE ONCE IVP 06/10/22 17:00 06/10/22 17:01 DC 06/10/22 17:14 5 MG Simethicone 80 mg ONCE ONCE PO 06/10/22 19:15 06/10/22 19:16 DC 06/10/22 19:30 80 MG Vital Signs/I&O 06/10/22 06/10/22 15:45 19:38 Temp 36.7 Pulse 79 63 Resp 14 16 B/P (MAP) 187/87 (120) 178/76 Pulse Ox 97 93 O2 Delivery Room Air Room Air Blood Pressure Mean: 120 Progress Progress Note : Time: 18:55 Progress Note Extensive discussion with the patient's regarding his concerns of this constant abdominal pain with intermittent bouts of worsening and constipation. Also profound memory problems and comprehension issues in recent weeks. I have reassured him her labs and exam are good today. VSS. No concerning findings regarding her lab work up. SHe feels a little better after medications provided prior to my evaluation. Still has some mild cramping. I have offered to send a prescription for the linzess to the pharmacy - as he states their samples ran out and he believed it may have been helping the pain - but certainly not her memory. They don't have neurology follow up until Aug 08 or so. I'm going to suggest to the to mention Pophyria as a possible for cause for her abdominal pain and neuropsychiatric issues. will give her some more fentanyl and some gas medicine and her linzess. Departure Impression Primary Impression: Abdominal pain Qualified Codes: R10.84 - Generalized abdominal pain Disposition: HOME, SELF-CARE Condition: Stable Departure-Patient Inst. Decision time for Depature: 19:07 Referrals: SHANTELLE TEJEDA MD (PCP/Family) Primary Care Physician Patient Instructions: Abdominal Pain, Adult ED Add. Discharge Instructions: Please keep your appointment with your GI Doctor on Sunday - talk to this doctor about a possible work up for "PORPHYRIA" which can cause chronic debilitating abdominal pain and neuropsychiatric problems (with memory, orientation and confusion). Check and see if your doctor has checked her thyroid and B12 levels - that they are normal. Hydrocodone as needed for severe pain - 1 every 6 hours - be sure and keep taking the MiraLAx daily has hydrocodone can worsen "constipation". I have restarted your Linzess at 145mcg a day. Come back to the Emergency Room for any new, concerning or emergent complaints. Scripts Linaclotide (Linzess) 145 Mcg Capsule 145 MCG PO DAILY, #30 CAP Prov: DAVEY MARTINS MD 06/10/22 Hydrocodone/Acetaminophen (Hydrocodone-Acetamin 5-325 mg) 5 Mg-325 Mg Tablet 1 TAB PO Q6H PRN for PAIN-MODERATE (5-7), #12 TAB Prov: DAVEY MARTINS MD 06/10/22 Copy Copies To 1: SHANTELEL TEJEDA MD, KATHRYN M MD Jun 10, 2022 18:57
[2022-06-10] MEDS ORDERED: ACHD5005 PO (19:12)
[2022-06-10] MEDS ORDERED: LINA145C PO (19:12)
[2022-06-10] MEDS ORDERED: SIMETHICONE 80 MG (MYLICON) CHEW PO ONE (19:15)
[2022-06-10 19:38] VITALS: BP 178/76
== END 2022-06-10 19:35 | disposition home or self-care (01) ==
LOC: EDUNIT# 15:07 → ER 15:10
DX: R10.11 Right upper quadrant pain (principal); R10.31 Right lower quadrant pain
CPT/HCPCS: 36415; 80053; 81000; 82570; 83690; 84110; 84120; 85025; 86141

== ENCOUNTER → 2022-06-26 | Outpatient (CLI) | payer MEDICARE, OTHER ==
[~2022-06-26] MED LIST changes: +GABA300C PO; +LINA145C PO
== END ==
LOC: LABNPT 14:18
PROVIDERS: ATTEND Family Medicine
DX: R10.9 Unspecified abdominal pain (principal)
CPT/HCPCS: 87088

== ENCOUNTER 2022-06-28 18:52 | Emergency (ER) | payer MEDICARE, OTHER ==
[~2022-06-28] VITALS: Ht 162 cm; Wt 66.0 kg
[~2022-06-28 18:52] MED LIST changes: -GABA300C PO
[2022-06-28 20:29] LABS: BASOPHILS % (AUTO) 0 % (0-10); EOSINOPHILS # (AUTO) 0.1 10^3/uL (0.0-0.3); EOSINOPHILS % (AUTO) 1 % (0-10); HEMATOCRIT 41 % (35-52); HEMOGLOBIN 13.9 g/dL (11.5-16.0); LYMPHOCYTES # (AUTO) 1.6 10^3/uL (1.0-4.0); LYMPHOCYTES % (AUTO) 20 % (12-44); MEAN CORPUSCULAR HEMOGLOBIN 30 pg (25-34); MEAN CORPUSCULAR HGB CONC 34 g/dL (32-36); MEAN CORPUSCULAR VOLUME 89 fL (80-99); MEAN PLATELET VOLUME 9.3 fL (9.0-12.2); MONOCYTES # (AUTO) 0.6 10^3/uL (0.0-1.0); MONOCYTES % (AUTO) 7 % (0-12); NEUTROPHILS # (AUTO) 5.9 10^3/uL (1.8-7.8); NEUTROPHILS % (AUTO) 72 % (42-75); PLATELET COUNT 277 10^3/uL (130-400); WHITE BLOOD COUNT 8.3 10^3/uL (4.3-11.0)
[2022-06-28 21:00] LABS: ALBUMIN 4.3 GM/DL (3.2-4.5); BILIRUBIN,TOTAL 0.6 MG/DL (0.1-1.0); CALCIUM 9.7 MG/DL (8.5-10.1); CREATININE SERUM 1.59 MG/DL (0.60-1.30); POTASSIUM 3.8 MMOL/L (3.6-5.0); TOTAL PROTEIN 7.5 GM/DL (6.4-8.2)
[2022-06-28] MEDS ORDERED: ANTACID SUSP 30 ML UDC (MYLANTA) PO ONE (21:30)
[2022-06-28] MEDS ORDERED: LACTATED RINGERS 1,000 ML IV ONE (21:30)
[2022-06-28] MEDS ORDERED: LIDOCAINE 2% VISCOUS 15 ML UDC PO ONE (21:30)
[2022-06-28] MEDS ORDERED: ONDANSETRON 4 MG/2 ML (SDV) Z0FRAN IVP ONE (21:30)
[2022-06-29 00:11] LABS: BILIRUBIN,URINE NEGATIVE (NEGATIVE); CLARITY,URINE CLEAR; COLOR,URINE YELLOW; GLUCOSE, URINE (UA) NEGATIVE (NEGATIVE); KETONES,URINE NEGATIVE (NEGATIVE); LEUKOCYTE ESTERASE ,URINE NEGATIVE (NEGATIVE); NITRITE,URINE NEGATIVE (NEGATIVE); PROTEIN,URINE TRACE (NEGATIVE)
[2022-06-29 00:17] LABS: BACTERIA,URINE NEGATIVE /HPF; SQUAMOUS EPITHELIAL CELL,UR 0-2 /HPF; WBC,URINE RARE /HPF
[2022-06-29] MEDS ORDERED: ACHD5005 PO (00:59)
[2022-06-29] MEDS ORDERED: GABA300C PO (00:59)
--- NOTE | 2022-06-29 00:59 | ED Abdominal Pain ---
General Chief Complaint: Abdominal/GI Problems Stated Complaint: ABD PAIN Nursing Triage Note: BEGAN HAVING ABDOMINAL PAIN TODAY AROUND 1200. C/O RIGHT SIDED FLANK AND ABDOMINAL PAIN, HEADACHE, THAT GOES DOWN INTO HER NECK ADN SHOULDERS. Source of Information: Patient, Family, Old Records Exam Limitations: No Limitations History of Present Illness Date Seen by Provider: Jun 28, 2022 Allergies and Home Medications Allergies Coded Allergies: levofloxacin (Verified Adverse Reaction, Unknown, mental status change, 05/07/22) niacin (Verified Adverse Reaction, Unknown, flushing, 05/07/22) Patient Home Medication List Fexofenadine HCl (Fexofenadine HCl) 180 Mg Tablet, 180 MG PO DAILY, (Reported) Entered as Reported by: JANEY ZAVALA on 08/28/201718 Hydrochlorothiazide (Hydrochlorothiazide) 12.5 Mg Tablet, 12.5 MG PO DAILY, (Reported) Entered as Reported by: JANEY ZAVALA on 08/28/201718 Hydrocodone/Acetaminophen (Hydrocodone-Acetamin 5-325 mg) 5 Mg-325 Mg Tablet, 1 TAB PO Q6H PRN for PAIN-MODERATE (5-7) Prescribed by: DAVEY MARTINS on 06/10/221911 Hyoscyamine Sulfate (Levsin-Sl) 0.125 Mg Tab.subl, 0.25 MG SL Q4H Prescribed by: MARJ DAMON on 05/08/22 232 Insulin Glargine,Hum.rec.anlog (Lantus Solostar) 100 Unit/1 Ml Insuln.pen, 25 UNIT SC HS, (Reported) Entered as Reported by: JANEY ZAVALA on 08/28/201718 Linaclotide (Linzess) 145 Mcg Capsule, 145 MCG PO DAILY Prescribed by: DAVEY MARTINS on 06/10/221911 Losartan Potassium (Losartan Potassium) 100 Mg Tablet, 100 MG PO DAILY, (Reported) Entered as Reported by: JANEY ZAVALA on 08/28/201718 Metoclopramide HCl (Reglan) 5 Mg Tablet, 5 MG PO Q8H PRN for NAUSEA/VOMITING-2ND LINE Prescribed by: TOYA SALAZAR on 05/10/22 1526 Metoclopramide HCl (Reglan) 10 Mg Tablet, 10 MG PO Q6H Prescribed by: MARJ DAMON on 05/30/222158 Omeprazole (Omeprazole) 40 Mg Capsule.dr, 40 MG PO DAILY, (Reported) Entered as Reported by: JANEY ZAVALA on 08/28/20 1719 Ondansetron (Ondansetron Odt) 4 Mg Tab.rapdis, 4 MG PO Q6H PRN for NAUSEA/VOMITING Prescribed by: TOYA SALAZAR on 05/07/22 0600 Ondansetron (Ondansetron Odt) 8 Mg Tab.rapdis, 8 MG PO Q6H Prescribed by: MARJ DAMON on 05/08/22 232 Ondansetron (Ondansetron Odt) 8 Mg Tab.rapdis, 8 MG PO Q6H Prescribed by: MARJ DAMON on 05/30/222158 Pantoprazole Sodium (Protonix) 40 Mg Tablet.dr, 40 MG PO DAILY Prescribed by: MARJ DAMON on 05/08/222322 Past Klvvbrr-Lxftkv-Qultmc Hx Patient Social History Tobacco Use?: No Use of E-Cig and/or Vaping dev: No Substance use?: No Alcohol Use?: No Pt feels they are or have been: No Immunizations Up To Date Tetanus Booster (TDap): More than 5yrs Influenza Vaccine Up-to-Date: Yes; Up-to-Date First/Initial COVID19 Vaccinat: 2020 Second COVID19 Vaccination Jaun: 2020 Third COVID19 Vaccination Date: 2020 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: [employer] Seasonal Allergies Seasonal Allergies: No Past Medical History Surgery/Hospitalization HX: HTN, HIGH CHOLESTEROL, KIDNEY STONES, ABDOMINAL PAIN Surgeries: Yes (EAR DRUM REPLACEMENT, R AND L ROTATOR CUFF, RIGHT ANKLE) Ear Surgery, Gallbladder, Orthopedic Respiratory: No Cardiac: Yes High Cholesterol, Hypertension Neurological: No Reproductive Disorders: No HIV/AIDS: No Genitourinary: Yes Kidney Stones, UTI-Chronic Gastrointestinal: Yes Gastrointestinal Bleed, Ulcer Musculoskeletal: Yes Arthritis, Chronic Back Pain, Gout Endocrine: Yes Diabetes, Non-Insulin dep HEENT: No Loss of Vision: Bilateral Cancer: No Did You Recieve Any Treatments: No Psychosocial: Yes Anxiety, Depression Integumentary: No Blood Disorders: No Adverse Reaction/Blood Tranf: No Family Medical History No Pertinent Family Hx Physical Exam Vital Signs Vital Signs - First Documented 06/28/22 19:50 Temp 36.8 Pulse 85 Resp 18 B/P (MAP) 200/92 (128) Pulse Ox 96 O2 Delivery Room Air Capillary Refill : Less Than 3 Seconds Height/Weight/BMI Height: 5'4.00" Weight: 150lbs. oz. 68.907861mj; 25.00 BMI Method:Stated Progress/Results/Core Measures Results/Orders Lab Results Laboratory Tests Test 06/28/22 20:21 06/29/22 00:06 Range/Units White Blood Count 8.3 4.3-11.0 10^3/uL Red Blood Count 4.61 3.80-5.11 10^6/uL Hemoglobin 13.9 11.5-16.0 g/dL Hematocrit 41 35-52 % Mean Corpuscular Volume 89 80-99 fL Mean Corpuscular Hemoglobin 30 25-34 pg Mean Corpuscular Hemoglobin Concent 34 32-36 g/dL Red Cell Distribution Width 12.0 10.0-14.5 % Platelet Count 277 130-400 10^3/uL Mean Platelet Volume 9.3 9.0-12.2 fL Immature Granulocyte % (Auto) 0 % Neutrophils (%) (Auto) 72 42-75 % Lymphocytes (%) (Auto) 20 12-44 % Monocytes (%) (Auto) 7 0-12 % Eosinophils (%) (Auto) 1 0-10 % Basophils (%) (Auto) 0 0-10 % Neutrophils # (Auto) 5.9 1.8-7.8 10^3/uL Lymphocytes # (Auto) 1.6 1.0-4.0 10^3/uL Monocytes # (Auto) 0.6 0.0-1.0 10^3/uL Eosinophils # (Auto) 0.1 0.0-0.3 10^3/uL Basophils # (Auto) 0.0 0.0-0.1 10^3/uL Immature Granulocyte # (Auto) 0.0 0.0-0.1 10^3/uL Sodium Level 139 135-145 MMOL/L Potassium Level 3.8 3.6-5.0 MMOL/L Chloride Level 102 98-107 MMOL/L Carbon Dioxide Level 22 21-32 MMOL/L Anion Gap 15 H 5-14 MMOL/L Blood Urea Nitrogen 14 7-18 MG/DL Creatinine 1.59 H 0.60-1.30 MG/DL Estimat Glomerular Filtration Rate 34 BUN/Creatinine Ratio 9 Glucose Level 120 H 70-105 MG/DL Calcium Level 9.7 8.5-10.1 MG/DL Corrected Calcium 9.5 8.5-10.1 MG/DL Total Bilirubin 0.6 0.1-1.0 MG/DL Aspartate Amino Transf (AST/SGOT) 22 5-34 U/L Alanine Aminotransferase (ALT/SGPT) 27 0-55 U/L Alkaline Phosphatase 104 40-136 U/L C-Reactive Protein High Sensitivity 1.29 H 0.00-0.50 MG/DL Total Protein 7.5 6.4-8.2 GM/DL Albumin 4.3 3.2-4.5 GM/DL Lipase 35 8-78 U/L Urine Color YELLOW Urine Clarity CLEAR Urine pH 7.0 5-9 Urine Specific [place] 1.010 L 1.016-1.022 Urine Protein TRACE H NEGATIVE Urine Glucose (UA) NEGATIVE NEGATIVE Urine Ketones NEGATIVE NEGATIVE Urine Nitrite NEGATIVE NEGATIVE Urine Bilirubin NEGATIVE NEGATIVE Urine Urobilinogen 0.2 < = 1.0 MG/DL Urine Leukocyte Esterase NEGATIVE NEGATIVE Urine RBC (Auto) NEGATIVE NEGATIVE Urine RBC NONE /HPF Urine WBC RARE /HPF Urine Squamous Epithelial Cells 0-2 /HPF Urine Crystals NONE /LPF Urine Bacteria NEGATIVE /HPF Urine Casts NONE /LPF Urine Mucus NEGATIVE /LPF Urine Culture Indicated NO My Orders Orders - LEANNA BOND MD Cbc With Automated Diff (06/28/22 19:26) Comprehensive Metabolic Panel (06/28/22 19:26) Hs C Reactive Protein (06/28/22 19:26) Lipase (06/28/22 19:26) Ua Culture If Indicated (06/28/22 19:26) Ed Iv/Invasive Line Start (06/28/22 19:26) Ondansetron Injection (Zofran Injectio (06/28/22 21:30) Lidocaine 2% Viscous 15 Ml (Xylocaine Vi (06/28/22 21:30) Antacid Suspension (Mylanta Suspension (06/28/22 21:30) Lactated Ringers (Lr 1000 Ml Iv Solution (06/28/22 21:30) Medications Given in ED Current Medications Medications Dose Ordered Sig/Cheryl Route Start Time Stop Time Status Last Admin Dose Admin Al Hydrox/Mg Hydrox/Simethicone 30 ml ONCE ONCE PO 06/28/22 21:30 06/28/22 21:31 DC 06/28/22 21:30 30 ML Lactated Ringer's 1,000 ml @ 0 mls/hr Q0M ONCE IV 06/28/22 21:30 06/28/22 21:31 DC 06/28/22 21:30 0 MLS/HR Lidocaine HCl 15 ml ONCE ONCE PO 06/28/22 21:30 06/28/22 21:31 DC 06/28/22 21:30 15 ML Ondansetron HCl 8 mg ONCE ONCE IVP 06/28/22 21:30 06/28/22 21:31 DC 06/28/22 21:30 8 MG Vital Signs/I&O 06/28/22 19:50 Temp 36.8 Pulse 85 Resp 18 B/P (MAP) 200/92 (128) Pulse Ox 96 O2 Delivery Room Air Blood Pressure Mean: 128 Departure Impression Primary Impression: Upper abdominal pain Additional Impressions: Hypertension Qualified Codes: I10 - Essential (primary) hypertension Chronic back pain Qualified Codes: M54.9 - Dorsalgia, unspecified; G89.29 - Other chronic pain Disposition: HOME, SELF-CARE Condition: Stable Departure-Patient Inst. Decision time for Depature: 00:54 Referrals: NO,LOCAL PHYSICIAN (PCP/Family) Primary Care Physician Patient Instructions: Abdominal Pain, Adult ED, High Blood Pressure ED Add. Discharge Instructions: 1. High blood pressure. Take 1/2 tablet of amlodipine 5 mg tonight. Then take amlodipine 5 mg twice daily for a total of 10 mg daily. Discuss your blood pressure management with your doctor in follow-up. 2. Abdominal pain. Your abdominal pain is likely caused by gastritis (inflammation of the stomach) and/or esophagitis (inflammation of the esophagus), at least in part. You may treat this by increasing your Carafate (sucralfate) to 4 times daily. Crush or soften with water and mix into 5 to 10 mL of water. Take this 30 minutes before meals 3 times a day and then again before bedtime for total of 4 times a day. Wait 30 minutes before eating or drinking after taking. 3. Avoid the following: Eating large meals, eating close to bedtime, caffeine, carbonation, chocolate, citrus fruits and juices, tomato products, mints, alcohol, tobacco, NSAID medications such as ibuprofen or naproxen, spicy foods, fatty/greasy foods, or anything else you know irritates your stomach. 4. Chronic back pain. Try gabapentin as prescribed. If this is not effective in controlling her pain, use hydrocodone as prescribed. Please be advised both of these medications can cause drowsiness. Hydrocodone can cause constipation. You may wish to take a stool softener with hydrocodone to help prevent constipation. 5. Please follow-up with your primary care provider soon as possible to discuss further management of these issues. All discharge instructions reviewed with patient and/or family. Voiced understanding. Scripts Hydrocodone/Acetaminophen (Hydrocodone-Acetamin 5-325 mg) 5 Mg-325 Mg Tablet 1 TAB PO Q6H PRN for PAIN-BREAKTHROUGH, #10 TAB Prov: LEANNA BOND MD 06/29/22 Gabapentin (Neurontin) 300 Mg Capsule 300 MG PO BID PRN for PAIN-MODERATE (5-7), #20 CAP Prov: LEANNA BOND MD 06/29/22 LEANNA BOND MD Jun 29, 2022 00:59
[2022-06-29] MEDS ORDERED: GABAPENTIN 300 MG (NEURONTIN) CAP PO ONE (01:00)
[2022-06-29 01:16] VITALS: BP 176/89
== END 2022-06-29 01:16 | disposition home or self-care (01) ==
LOC: EDUNIT# 18:52 → ER 18:53
DX: R10.11 Right upper quadrant pain (principal); I10 Essential (primary) hypertension; G89.29 Other chronic pain; M54.9 Dorsalgia, unspecified
CPT/HCPCS: 36415; 80053; 81000; 83690; 85025; 86141

== ENCOUNTER → 2022-07-18 | Outpatient (CLI) | payer MEDICARE, OTHER ==
[~2022-07-18] MED LIST changes: +GABA300C PO
[2022-07-18 10:21] LABS: BASOPHILS % (AUTO) 1 % (0-10); EOSINOPHILS # (AUTO) 0.1 10^3/uL (0.0-0.3); EOSINOPHILS % (AUTO) 2 % (0-10); HEMATOCRIT 41 % (35-52); HEMOGLOBIN 13.6 g/dL (11.5-16.0); LYMPHOCYTES # (AUTO) 1.9 10^3/uL (1.0-4.0); LYMPHOCYTES % (AUTO) 21 % (12-44); MEAN CORPUSCULAR HEMOGLOBIN 30 pg (25-34); MEAN CORPUSCULAR HGB CONC 34 g/dL (32-36); MEAN CORPUSCULAR VOLUME 89 fL (80-99); MEAN PLATELET VOLUME 9.8 fL (9.0-12.2); MONOCYTES # (AUTO) 0.6 10^3/uL (0.0-1.0); MONOCYTES % (AUTO) 7 % (0-12); NEUTROPHILS # (AUTO) 6.1 10^3/uL (1.8-7.8); NEUTROPHILS % (AUTO) 70 % (42-75); PLATELET COUNT 275 10^3/uL (130-400); WHITE BLOOD COUNT 8.7 10^3/uL (4.3-11.0)
[2022-07-18 11:20] LABS: BILIRUBIN,TOTAL 0.4 MG/DL (0.1-1.0); CALCIUM 9.5 MG/DL (8.5-10.1); CREATININE SERUM 1.24 MG/DL (0.60-1.30); POTASSIUM 3.9 MMOL/L (3.6-5.0)
[2022-07-18 11:21] LABS: ALBUMIN 4.2 GM/DL (3.2-4.5); TOTAL PROTEIN 7.2 GM/DL (6.4-8.2)
[2022-07-18 15:13] LABS: FREE T4 (FREE THYROXINE) 1.09 NG/DL (0.70-1.48)
== END ==
LOC: LAB FS 09:27
PROVIDERS: ATTEND Registered Nurse Emergency
DX: I10 Essential (primary) hypertension (principal); F32.9 Major depressive disorder, single episode, unspecified; B37.0 Candidal stomatitis; E02 Subclinical iodine-deficiency hypothyroidism; R53.83 Other fatigue
CPT/HCPCS: 36415; 80053; 84439; 84443; 85025

== ENCOUNTER → 2022-07-21 | Outpatient (CLI) | payer MEDICARE, OTHER ==
--- NOTE | 2022-07-21 11:33 | Diagnostic Imaging Report ---
INDICATION: Pelvic pain AP pelvis obtained at 10:33 a.m. COMPARISON is made with 04/29/2017. There is no acute fracture or acute bone abnormality seen. There are mild degenerative changes of both hips with hypertrophic change of the greater trochanters. There is degenerative change of the pubic symphysis and mild degenerative change of the SI joints and lower lumbar spine. IMPRESSION: Chronic findings as above with no acute abnormality. Dictated by: Dictated on workstation # [id number]
== END ==
LOC: LAB FS 10:21
PROVIDERS: ATTEND Registered Nurse Emergency
DX: E11.9 Type 2 diabetes mellitus without complications (principal); E78.5 Hyperlipidemia, unspecified; H93.13 Tinnitus, bilateral; I10 Essential (primary) hypertension; R10.2 Pelvic and perineal pain; Z86.2 Personal history of diseases of the blood and blood-forming organs and certain disorders involving the immune mechanism
CPT/HCPCS: 36415; 72170; 82728; 83540; 83550

== ENCOUNTER 2023-07-13 19:49 | Emergency (ER) | payer MEDICARE, OTHER ==
[~2023-07-13] VITALS: Ht 157.4 cm; Wt 61.2 kg
[~2023-07-13 19:49] MED LIST changes: -LOSA100T57 PO; +LOSA100T58 PO
[2023-07-13] MEDS ORDERED: Tetanus/Diphtheria/Pertussis (Acell) ADULT Vaccine 0.5 ML IM ONE (20:15)
[2023-07-13] MEDS ORDERED: ONDANSETRON 4 MG ORAL DISSOLVE TABLET PO STA (20:26)
--- NOTE | 2023-07-13 20:28 | ED Trauma-Multisystem ---
General Chief Complaint: Trauma-Non Activation Stated Complaint: FELL,R KNEE,BOTH ARMS,FOREHEAD LACS Nursing Triage Note: Patient tripped and fell over the weedeater in her garage. Once the patient tripped, she tried to catch her fall and fell into the doorway. states that she was very disoriented just after hitting her head on the door frame. Patient is alert and oriented upon ER arrival. Patient denies taking blood thinners. Patient has abrasions to the right knee and right wrist. Patient has a small laceration to the medial forehead. Patient is complaining of neck pain. Source of Information: Patient, Family () Exam Limitations: No Limitations History of Present Illness Date Seen by Provider: Jul 13, 2023 Time Seen by Provider: 19:56 Initial Comments 73-year-old female patient with history of hypertension and hyperlipidemia brought in POV by her because of a fall. Patient stated she tripped and fell over the with ED in her garage and hitting her head on the door frame. Patient denies loss of consciousness but her stated she was very disoriented after hitting her head. Patient had epistaxis that resolved prior to arrival to ER. Patient complaining of laceration of forehead and complaining of pain in her head and neck with abrasion of right knee and right wrist. Patie nt denies chest pain, shortness of breath, focal neurodeficit, nausea and vomiting. Patient rated her pain in her neck /10 but is stated she had history of chronic neck pain. Allergies and Home Medications Allergies Coded Allergies: levofloxacin (Verified Adverse Reaction, Unknown, mental status change, 05/07/22) niacin (Verified Adverse Reaction, Unknown, flushing, 05/07/22) Patient Home Medication List Home Medication List Reviewed: Yes Fexofenadine HCl (Fexofenadine HCl) 180 Mg Tablet, 180 MG PO DAILY, (Reported) Entered as Reported by: JANEY ZAVALA on 08/28/20 1719 Gabapentin (Neurontin) 300 Mg Capsule, 300 MG PO BID PRN for PAIN-MODERATE (5-7) Prescribed by: LEANNA VILLAREAL on 06/29/22 0059 Hydrochlorothiazide (Hydrochlorothiazide) 12.5 Mg Tablet, 12.5 MG PO DAILY, (Reported) Entered as Reported by: JANEY ZAVALA on 08/28/201718 Hydrocodone/Acetaminophen (Hydrocodone-Acetamin 5-325 mg) 5 Mg-325 Mg Tablet, 1 TAB PO Q6H PRN for PAIN-MODERATE (5-7) Prescribed by: DAVEY MARTINS on 06/10/221911 Hydrocodone/Acetaminophen (Hydrocodone-Acetamin 5-325 mg) 5 Mg-325 Mg Tablet, 1 TAB PO Q6H PRN for PAIN-BREAKTHROUGH Prescribed by: LEANNA VILLAREAL on 06/29/22 0100 Hyoscyamine Sulfate (Levsin-Sl) 0.125 Mg Tab.subl, 0.25 MG SL Q4H Prescribed by: MARJ DAMON on 05/08/22 232 Insulin Glargine,Hum.rec.anlog (Lantus Solostar) 100 Unit/1 Ml Insuln.pen, 25 UNIT SC HS, (Reported) Entered as Reported by: JANEY ZAVALA on 08/28/201718 Linaclotide (Linzess) 145 Mcg Capsule, 145 MCG PO DAILY Prescribed by: DAVEY MARTINS on 06/10/221911 Losartan Potassium (Losartan Potassium) 100 Mg Tablet, 100 MG PO DAILY, (Report ed) Entered as Reported by: JANEY ZAVALA on 08/28/201718 Metoclopramide HCl (Reglan) 5 Mg Tablet, 5 MG PO Q8H PRN for NAUSEA/VOMITING-2ND LINE Prescribed by: TOYA SALAZAR on 05/10/22 1526 Metoclopramide HCl (Reglan) 10 Mg Tablet, 10 MG PO Q6H Prescribed by: MARJ DAMON on 05/30/222158 Omeprazole (Omeprazole) 40 Mg Capsule.dr, 40 MG PO DAILY, (Reported) Entered as Reported by: JANEY ZAVALA on 08/28/201718 Ondansetron (Ondansetron Odt) 4 Mg Tab.rapdis, 4 MG PO Q6H PRN for NAUSEA/VOMITING Prescribed by: TOYA SALAZAR on 05/07/22 0600 Ondansetron (Ondansetron Odt) 8 Mg Tab.rapdis, 8 MG PO Q6H Prescribed by: MARJ DAMON on 6/20/22 2323 Ondansetron (Ondansetron Odt) 8 Mg Tab.rapdis, 8 MG PO Q6H Prescribed by: MARJ DAMON on 05/30/222158 Pantoprazole Sodium (Protonix) 40 Mg Tablet.dr, 40 MG PO DAILY Prescribed by: MARJ DAMON on 05/08/22 232 Tramadol HCl (Tramadol HCl) 50 Mg Tablet, 50 MG PO QID PRN for PAIN Prescribed by: Yvette babcock on 07/13/23 214 Review of Systems Review of Systems Constitutional: no symptoms reported Eyes: No Symptoms Reported Ears: No Symptoms Reported Nose: See HPI Mouth: No Symptoms Reported Throat: No Symptoms to Report Respiratory: no symptoms reported Cardiovascular: No Symptoms Reported Gastrointestinal: no symptoms reported Genitourinary: no symptoms reported Musculoskeletal: no symptoms reported Skin: see HPI Psychiatric/Neurological: No Symptoms Reported All Other Systems Reviewed Negative Unless Noted: Yes Past Kacnigj-Kvswop-Kddced Hx Patient Social History Tobacco Use?: No Substance use?: No Alcohol Use?: No Pt feels they are or have been: No Immunizations Up To Date Tetanus Booster (TDap): More than 5yrs First/Initial COVID19 Vaccinat: 2020 Second COVID19 Vaccination Jaun: 2020 Third COVID19 Vaccination Date: 2020 Seasonal Allergies Seasonal Allergies: No Past Medical History Surgery/Hospitalization HX: HTN, HIGH CHOLESTEROL, KIDNEY STONES, ABDOMINAL PAIN Surgeries: Yes (EAR DRUM REPLACEMENT, R AND L ROTATOR CUFF, RIGHT ANKLE) Ear Surgery, Gallbladder, Orthopedic Respiratory: No Cardiac: Yes High Cholesterol, Hypertension Neurological: No Reproductive Disorders: No HIV/AIDS: No Genitourinary: Yes Kidney Stones, UTI-Chronic Gastrointestinal: Yes Gastrointestinal Bleed, Ulcer Musculoskeletal: Yes Arthritis, Chronic Back Pain, Gout Endocrine: Yes Diabetes, Non-Insulin dep HEENT: No Loss of Vision: Bilateral Cancer: No Did You Recieve Any Treatments: No Psychosocial: Yes Anxiety, Depression Integumentary: No Blood Disorders: No Adverse Reaction/Blood Tranf: No Family Medical History No Pertinent Family Hx Physical Exam Vital Signs Vital Signs - First Documented Height, Weight, BMI Height: 5'4.00" Weight: 150lbs. oz. 68.711679ro; 24.00 BMI Method:Stated General Appearance: Mild Distress Head: Lacerations (1.5 cm superficial laceration of mid forehead without active bleeding, very small laceration of nasal bridge) Eyes: Bilateral Eye Normal Inspection, Bilateral Eye PERRL Ears, Nose, Throat: No Dental Injury, Decreased Hearing (Chronic) Neck: Normal Inspection, Non Tender, Supple Cardiovascular: Regular Rate, Rhythm, No Edema Respiratory: Chest Non Tender, Lungs Clear, Normal Breath Sounds, No Accessory Muscle Use, No Respiratory Distress Gastrointestinal: Normal Bowel Sounds, No Organomegaly, No Pulsatile Mass, Non Tender Back: Normal Inspection, No CVA Tenderness, No Vertebral Tenderness Extremity: Normal Capillary Refill, Normal Range of Motion, No Calf Tenderness, Other (Right kidney several superficial skin tear) Neurologic/Psychiatric: Alert, Oriented x3, No Motor/Sensory Deficits Skin: Normal Color, Warm/Dry, Other (Multiple superficial skin tear of right knee and abrasion of right wrist) Procedures/Interventions Wound Location: Face Other Wound Location Nose, right knee skin tear Wound Length (cm): 1.5 Wound's Depth, Shape: superficial, linear Wound Explored: clean Irrigated w/ Saline (ccs): 20 Other Closure Supply: Wound Adhesive Progress/Results/Core Measures Results/Orders My Orders Orders - YVETTE BABCOCK MD Ct Head/Face/Cervical Wo (07/13/23 20:04) Knee 3 View Right (07/13/23 20:04) Dipht/Pertuss(Acell)/Tet Adult (Dipht/Pe (07/13/23 20:15) Ondansetron Oral Dissolve Tab (Ondanset (07/13/23 20:26) Fentanyl Injection (Fentanyl Injection (07/13/23 20:30) Clonidine Tablet (Clonidine Tablet) (07/13/23 21:15) Medications Given in ED Current Medications Medications Dose Ordered Sig/Cheryl Route Start Time Stop Time Status Last Admin Dose Admin Clonidine HCl 0.1 mg ONCE ONCE PO 07/13/23 21:15 07/13/23 21:16 DC 07/13/23 21:20 0.1 MG Diphtheria/ Tetanus/Acell Pertussis 0.5 ml ONCE ONCE IM 07/13/23 20:15 07/13/23 20:16 DC 07/13/23 20:17 0.5 ML Fentanyl Citrate 50 mcg ONCE ONCE IM 07/13/23 20:30 07/13/23 20:31 DC 07/13/23 20:32 50 MCG Vital Signs/I&O 07/13/23 07/13/23 07/13/23 19:52 19:52 21:51 Temp 36.1 36.1 Pulse 113 113 98 Resp 16 16 16 B/P (MAP) 198/86 (123) 198/86 (123) 173/73 Pulse Ox 98 98 98 O2 Delivery Room Air Room Air Room Air Blood Pressure Mean: 123 Progress Progress Note : Progress Note Patient with accidental fall and injury to face and right knee complaining of pain in her neck with history of chronic neck pain. Patient had normal neuro exam. CT head, facial bones and cervical spine interpreted by radiologist and reviewed by me and did not show acute finding. Right knee x-ray interpreted by me and did not show acute finding. Facial laceration was repaired with Dermabond. Skin tear of right knee repaired with Dermabond. Patient treated with fentanyl IM and Zofran sublingual with improvement of her pain but her blood pressure stays in 190s and patient stated she did not take her medication tonight. Patient treated with clonidine 0.1 mg p.o. and her blood pressure gradually decreased to 170s over 90s prescription for tramadol was given and patient advised to take home medication and follow-up with primary care physician and return to ER as needed. Diagnostic Imaging Diagonstic Imaging: Xray, CT Plain Films/CT/US/NM/MRI: facial bones, c-spine, knee, head Comments CT head, cervical spine and facial bones interpreted by radiologist and reviewed by me and did not show acute finding: [facility] [place], [place] NAME: KIKA HOLLAND [facility] REC#: [id number] PT STATUS: REG ER : 1950 PHYSICIAN: YVETTE BABCOCK MD ADMIT DATE: 07/13/23/ER FS Signed Date of Exam:07/13/23 CT HEAD/FACE/CERVICAL WO PROCEDURE: CT head, face, cervical spine without contrast. TECHNIQUE: Multiple contiguous axial images were obtained through the head, neck, and facial bones without the use of intravenous contrast. Sagittal and coronal reformations through the cervical spine and facial bones were also performed. All CT scans use one or more of the following dose optimizing techniques: automated exposure control, MA and/or KvP adjustment based on a patient size and exam type, or iterative reconstruction. INDICATION: Head, face and neck trauma COMPARISON: CT head from 05/10/2022 FINDINGS: Head: No hyperdense hemorrhage or space-occupying mass. No hydrocephalus or midline shift. No evidence of territorial infarct. Mild hypoattenuation the periventricular white matter most indicative of chronic microvascular ischemic change, stable since prior exam Basilar cisterns are patent. No focal scalp swelling. No skull fracture. The mastoid air cells are clear. Face: No fracture of the nasal bones, osseous nasal septum or anterior nasal spine. The orbits, zygomatic arches, maxillary sinus fox, alveolar ridge of the maxilla and pterygoid plates are all intact. Normal alignment of the temporal mandibular joints. No acute mandibular fracture. Paranasal sinuses are clear. No globe rupture or retrobulbar hematoma. Bilateral lens surgeries been performed. Cervical spine: No acute fracture or traumatic malalignment. Degenerative kyphotic curvature is present in the cervical spine. No high-grade spinal canal narrowing. Airway is patent. No cervical lymphadenopathy. Visualized thyroid is normal. IMPRESSION: 1. No acute intracranial process or skull fracture. 2. No acute fracture in the mid face or mandible. 3. No acute fracture or traumatic malalignment of the cervical spine. Dictated by: Dictated on workstation # [id number] Dict: 07/13/232039 Trans: 07/13/232042 [facility] [id number] Interpreted by: SILVIO KEMP MD Electronically signed by: SILVIO KEMP MD 07/13/232042 Right knee x-ray interpreted by me and did not show acute finding. Right knee x-ray interpreted by radiologist and reviewed by in and showed: [facility] [place] [place] NAME: KIKA HLOLAND [facility] REC#: [id number] PT STATUS: REG ER : 1950 PHYSICIAN: YVETTE BABCOCK MD ADMIT DATE: 07/13/23/ER FS Draft Date of Exam:07/13/23 KNEE 3 VIEW RIGHT KNEE 3 VIEW RIGHT INDICATION: Knee pain after trauma. COMPARISON: None available. TECHNIQUE: 3 views of right knee. FINDINGS: No acute fracture. Alignment is normal. Normal variant flabella is noted. Degenerative arthritis is present within the lateral compartment. No knee joint effusion. IMPRESSION: No acute fracture about the right knee. Dictated on workstation # [id number] Dict: 07/13/232037 Trans: 07/13/232040 [id number] Interpreted by: SILVIO KEMP MD Electronically signed by: Departure Impression Primary Impression: Fall Qualified Codes: W19.XXXA - Unspecified fall, initial encounter Additional Impressions: Facial laceration Qualified Codes: S01.81XS - Laceration without foreign body of other part of head, sequela Acute cervical myofascial strain Qualified Codes: S16.1XXD - Strain of muscle, fascia and tendon at neck level, subsequent encounter Contusion of right knee Qualified Codes: S80.01XS - Contusion of right knee, sequela Skin tear Uncontrolled hypertension Disposition: HOME, SELF-CARE Condition: Improved Departure-Patient Inst. Decision time for Depature: 21:44 Referrals: LUPIS GOODEN APRN (PCP) Primary Care Physician SHANTELLE TEJEDA MD (Family) Primary Care Physician Patient Instructions: Minor Head Injury (DC), High Blood Pressure (DC), Prev enting falls in adults, Wound Care ED, Cervical Sprain ED, Laceration Repair With Glue ED Add. Discharge Instructions: Continue home medication Apply ice on the affected area Drink plenty of liquids Follow-up with your primary care physician in 3 to 5 days Return to ER as needed All discharge instructions reviewed with patient and/or family. Voiced understa nding. Scripts Tramadol HCl (Tramadol HCl) 50 Mg Tablet 50 MG PO QID PRN for PAIN, #14 TAB Prov: YVETTE BABCOCK MD 07/13/23 YVETTE BABCOCK MD Jul 13, 2023 20:28
[2023-07-13] MEDS ORDERED: fentaNYL INJECTION 100 MCG/2 ML VIAL IM ONE (20:30)
--- NOTE | 2023-07-13 20:42 | Diagnostic Imaging Report ---
KNEE 3 VIEW RIGHT INDICATION: Knee pain after trauma. COMPARISON: None available. TECHNIQUE: 3 views of right knee. FINDINGS: No acute fracture. Alignment is normal. Normal variant flabella is noted. Degenerative arthritis is present within the lateral compartment. No knee joint effusion. IMPRESSION: No acute fracture about the right knee. Dictated by: Dictated on workstation # [id number]
--- NOTE | 2023-07-13 20:45 | Diagnostic Imaging Report ---
PROCEDURE: CT head, face, cervical spine without contrast. TECHNIQUE: Multiple contiguous axial images were obtained through the head, neck, and facial bones without the use of intravenous contrast. Sagittal and coronal reformations through the cervical spine and facial bones were also performed. All CT scans use one or more of the following dose optimizing techniques: automated exposure control, MA and/or KvP adjustment based on a patient size and exam type, or iterative reconstruction. INDICATION: Head, face and neck trauma COMPARISON: CT head from 05/10/2022 FINDINGS: Head: No hyperdense hemorrhage or space-occupying mass. No hydrocephalus or midline shift. No evidence of territorial infarct. Mild hypoattenuation the periventricular white matter most indicative of chronic microvascular ischemic change, stable since prior exam Basilar cisterns are patent. No focal scalp swelling. No skull fracture. The mastoid air cells are clear. Face: No fracture of the nasal bones, osseous nasal septum or anterior nasal spine. The orbits, zygomatic arches, maxillary sinus fox, alveolar ridge of the maxilla and pterygoid plates are all intact. Normal alignment of the temporal mandibular joints. No acute mandibular fracture. Paranasal sinuses are clear. No globe rupture or retrobulbar hematoma. Bilateral lens surgeries been performed. Cervical spine: No acute fracture or traumatic malalignment. Degenerative kyphotic curvature is present in the cervical spine. No high-grade spinal canal narrowing. Airway is patent. No cervical lymphadenopathy. Visualized thyroid is normal. IMPRESSION: 1. No acute intracranial process or skull fracture. 2. No acute fracture in the mid face or mandible. 3. No acute fracture or traumatic malalignment of the cervical spine. Dictated by: Dictated on workstation # [id number]
[2023-07-13] MEDS ORDERED: cloNIDine 0.1 MG TABLET PO ONE (21:15)
[2023-07-13] MEDS ORDERED: TRAM50TA3 PO (21:46)
[2023-07-13 21:51] VITALS: BP 173/73
== END 2023-07-13 21:53 | disposition home or self-care (01) ==
LOC: EDUNIT# 19:49 → ER FS 19:51
DX: S01.81XA Laceration without foreign body of other part of head, initial encounter (principal); S81.011A Laceration without foreign body, right knee, initial encounter; S37.031A Laceration of right kidney, unspecified degree, initial encounter; S01.21XA Laceration without foreign body of nose, initial encounter; S16.1XXA Strain of muscle, fascia and tendon at neck level, initial encounter; S60.811A Abrasion of right wrist, initial encounter; I10 Essential (primary) hypertension; Z23 Encounter for immunization; W01.198A Fall on same level from slipping, tripping and stumbling with subsequent striking against other object, initial encounter; Y92.59 Other trade areas as the place of occurrence of the external cause
CPT/HCPCS: 70450; 70486; 72125; 73562; 90715